=== PATIENT | female | born 1960 | race Caucasian/White ===

== ENCOUNTER → 2016-12-18 | Outpatient (CLI) | payer BC ==
[~2016-12-18] MED LIST: MELO15TA4 PO; MULT-506 PO; OXYM0.0592 INH; TOFA1TAB PO; TRAM-10 PO; TRIA3AER NAE
[2016-12-18 16:27] LABS: BASO % 0.3 %; BASO ABS # 0.02 K/uL (0-0.2); COMPLETE YES; EOS % 2.5 %; LYMPH % 33.1 %; MEAN CELL VOLUME 86.4 fL (80-100); MEAN CORPUSCULAR HEMOGLOBIN 27.9 pg (25-34); MEAN CORPUSCULAR HGB CONC 32.3 g/dl (32-36); MEAN PLATELET VOLUME 9.6 fL (7.4-10.4); MONO % 6.8 %; NEUT % 57.3 %; PLATELET COUNT 330 K/uL (130-400); RED BLOOD COUNT 4.05 M/uL (4.2-5.4); WHITE BLOOD COUNT 6.04 K/uL (4.8-10.8)
[2016-12-18 16:45] LABS: ALT/SGPT 22 U/L (12-78); AST/SGOT 15 U/L (15-37); BLOOD UREA NITROGEN 20 mg/dl (7-18); CALCIUM 9.3 mg/dl (8.5-10.1); CARBON DIOXIDE 29 mmol/L (21-32); CHLORIDE 105 mmol/L (98-107); GLUCOSE 90 mg/dl (70-99); POTASSIUM 3.9 mmol/L (3.5-5.1); SODIUM 140 mmol/L (136-145)
[2016-12-18 16:55] LABS: ALB/GLOB RATIO 0.8 (0.9-2); ALKALINE PHOSPHATASE 90 U/L (45-117)
--- NOTE | 2016-12-18 17:01 | DIAGNOSTIC IMAGING REPORT ---
CHEST 2 VIEWS ROUTINE CLINICAL HISTORY: Fever of unknown origin. COMPARISON STUDY: History of June 14, 2013. FINDINGS: Lung volumes are normal. No consolidation is identified. Cardiac size is at the upper limits of normal. Mediastinal contours are stable. There is no evidence of pulmonary edema. Partial fusion of the left first and second ribs is incidentally noted. IMPRESSION: No acute cardiopulmonary findings. Electronically signed by: Sha Medina M.D. 12/18/2016 5:00 PM Dictated Date/Time: 12/18/2016 4:58 PM
[2016-12-18 17:42] LABS: URINE APPEARANCE CLEAR (CLEAR); URINE BILIRUBIN NEG (NEG); URINE COLOR YELLOW; URINE EPITHELIAL CELL AUTO 20-30 /lpf (0-5); URINE NITRITE NEG (NEG); URINE PH 6.5 (4.5-7.5); URINE SPECIFIC GRAVITY 1.007 (1.000-1.030); UROBILINOGEN NEG (NEG)
[2016-12-18 17:44] LABS: MANUAL MICROSCOPIC REQUIRED? NO; REVIEW REQ? NO
[2016-12-18 19:58] LABS: LYME DISEASE AB IGG NEG (NEG); LYME DISEASE AB IGM NEG (NEG)
== END | disposition home or self-care (01) ==
LOC: C.LAB1850 15:39
PROVIDERS: ATTEND Internal Medicine
DX: R50.9 Fever, unspecified (principal)

== ENCOUNTER → 2017-06-03 | Outpatient (CLI) | payer BC ==
--- NOTE | 2017-06-03 14:26 | MAMMOGRAPHY REPORT ---
BILATERAL DIGITAL DIAGNOSTIC MAMMOGRAM TOMOSYNTHESIS WITH CAD AND TARGETED LEFT ULTRASOUND: 7 CLINICAL HISTORY: 56-year-old woman with a history of prior bouts of mastoiditis presents after recen t pain erythema and discomfort in the periareolar left breast. Also due for annual bilateral screeni ng mammograms. TECHNIQUE: Bilateral breast tomosynthesis in addition to standard 2D mammography was performed. Curre nt study was also evaluated with a Computer Aided Detection (CAD) system. COMPARISON: Comparison is made to exams dated: 08/24/2015 ultrasound, 08/24/2015 mammogram, 10/17/2014 mammogram, 09/21/2013 mammogram, 10/30/2010 mammogram, and 09/30/2005 mammogram - [facility]. BREAST COMPOSITION: There are scattered areas of fibroglandular density in both breasts. FINDINGS: There is no definite focal skin thickening in either breast. The glandular pattern is sim ilar to prior exams, with stable asymmetries in the medial left breast and superior right breast. Th ere are benign rim calcifications in the breasts and a stable grouping of punctate microcalcification s in the left upper outer posterior breast. No obvious new suspicious mass, focal area of distortion , asymmetry or suspicious microcalcifications are seen. Targeted ultrasound was performed in the periareolar left breast in the area of pain pointed out by t he patient. In the 6:00 periareolar left breast, incidentally identified is a lobulated parallel hyp oechoic solid mass with associated internal echogenic focus most likely representing a coarse calcifi cation. This mass measures 8.2 x 3.7 x 3.0 mm and most likely represents a fibroadenoma. In retrosp ect, it is not definitely seen mammographically. Given the benign sonographic appearance, a short in terval follow-up targeted ultrasound and diagnostic mammograms is recommended to ensure stability in 6 months. No other suspicious solid or cystic mass is seen in the periareolar/retroareolar left rosy st. There is no focal skin thickening or drainable fluid collection. IMPRESSION: ACR-BI-RADS CATEGORY 3: PROBABLY BENIGN, TARGETED ULTRASOUND ACR-BI-RADS CATEGORY 3: PRO BABLY BENIGN 1. There is no suspicious mammographic or targeted sonographic abnormality, skin thickening or drain able fluid collection in the region of probable resolving mastitis. Continued clinical monitoring is recommended. 2. Incidentally identified is a benign-appearing circumscribed parallel hypoechoic solid 8 mm mass i n the 6:00 periareolar left breast that most likely represents a fibroadenoma. This is not definitel y seen mammographically, even in retrospect. However, a short interval follow-up left diagnostic peter osynthesis mammogram and repeat targeted ultrasound is recommended to ensure stability in 6 months. 3. Stable mammographic appearance of the right breast, without mammographic evidence of malignancy. Recommend routine screening in 1 year. These results and recommendations were discussed with the patient at the time of the exam. Approximately 10% of breast cancers are not detected with mammography. A negative mammographic report should not delay biopsy if a clinically suggestive mass is present. Soni Carbajal M.D. ay/:06/03/2017 12:39:55 Associate Project Manager: Guerline DONOHUE)(Jasbir), [facility] letter sent: Follow Up Recommended 3 BI-RADS Code: ACR-BI-RADS Category 3: Probably Benign Ultrasound BI-RADS: ACR-BI-RADS Category 3: Pr obably Benign
== END | disposition home or self-care (01) ==
LOC: C.MAMM 09:07
PROVIDERS: ATTEND Internal Medicine
DX: N64.4 Mastodynia (principal); N63.20 Unspecified lump in the left breast, unspecified quadrant

== ENCOUNTER → 2017-06-23 | Outpatient (CLI) | payer BC | END | disposition home or self-care (01) | LOC: C.LABSPEC 12:17 | PROVIDERS: ATTEND Internal Medicine | DX: N39.0 Urinary tract infection, site not specified (principal) ==

== ENCOUNTER → 2017-07-29 | Outpatient (CLI) | payer BC ==
[~2017-07-29] MED LIST changes: +MELO-84 PO; -MELO15TA4 PO
== END | disposition home or self-care (01) ==
LOC: C.PATHSPEC 11:34
PROVIDERS: ATTEND Plastic Surgery
DX: L98.9 Disorder of the skin and subcutaneous tissue, unspecified (principal); C44.91 Basal cell carcinoma of skin, unspecified

== ENCOUNTER → 2017-08-06 | Outpatient (CLI) | payer BC ==
[~2017-08-06] MED LIST changes: -MELO-84 PO; +MELO15TA4 PO
== END | disposition home or self-care (01) ==
LOC: C.PATHSPEC 17:03
PROVIDERS: ATTEND Plastic Surgery
DX: C44.511 Basal cell carcinoma of skin of breast (principal)

== ENCOUNTER → 2017-11-11 | Outpatient (CLI) | payer BC ==
[~2017-11-11] MED LIST changes: +MELO-84 PO; -MELO15TA4 PO
== END | disposition home or self-care (01) ==
LOC: C.LAB1850 08:24
PROVIDERS: ATTEND Nurse Practitioner Primary Care
DX: M25.551 Pain in right hip (principal)

== ENCOUNTER → 2017-11-27 | Outpatient (CLI) | payer BC ==
--- NOTE | 2017-11-30 08:09 | MAMMOGRAPHY REPORT ---
UNILATERAL LEFT DIGITAL DIAGNOSTIC MAMMOGRAM TOMOSYNTHESIS WITH CAD AND TARGETED LEFT ULTRASOUND: 11/09 CLINICAL HISTORY: Six-month follow-up of left breast mass. TECHNIQUE: Breast tomosynthesis in addition to standard 2D mammography was performed. Current study was also evaluated with a Computer Aided Detection (CAD) system. Left CC and MLO 2D and tomosynthesi s images were obtained. COMPARISON: Comparison is made to exams dated: 06/03/2017 ultrasound, 06/03/2017 mammogram, 6 ultrasound, 08/24/2015 mammogram, 10/17/2014 mammogram, and 09/21/2013 mammogram - [facility] [address]. BREAST COMPOSITION: There are scattered areas of fibroglandular density in the left breast. FINDINGS: There are no suspicious masses, calcifications, or areas of architectural distortion noted within the left breast. There has been no significant interval change compared to prior exams. An a symmetry with associated coarse benign-appearing calcifications seen within the left lower inner quad rant anteriorly is stable compared to prior exams. Other scattered benign-appearing left breast calc ifications are also stable compared to prior exams. Targeted ultrasound was performed of the area of the previously seen left breast mass. In the left 7 :00 periareolar breast (previously labeled 6:00) there is an oval circumscribed parallel hypoechoic s olid mass which measures 8 x 3 mm, stable in size and appearance compared to the May 2017 exam. Echogenic foci are seen within the mass, consistent with coarse calcifications. This corresponds wit h the focal asymmetry and coarse benign-appearing calcifications which have been stable mammographica lly to prior exams. 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 IMPRESSION: ACR BI-RADS CATEGORY 2: BENIGN, TARGETED ULTRASOUND ACR BI-RADS CATEGORY 2: BENIGN Hypoechoic circumscribed 8 mm mass with associated internal coarse calcifications is stable on ultras ound compared to the May 2017 exam, and is stable mammographically compared to multiple prior exa ms. 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 There is no ma mmographic or targeted sonographic evidence of malignancy. Return to annual mammogram screening sched ule is recommended, due May 2018. The patient has been verbally notified of the results. Approximately 10% of breast cancers are not detected with mammography. A negative mammographic report should not delay biopsy if a clinically suggestive mass is present. Diana Alford M.D. ah/:11/27/2017 11:58:47 Neonatal Icu Coordinator: Desire DONOHUE)(Jasbir), [facility] letter sent: Normal 1/2 BI-RADS Code: ACR BI-RADS Category 2: Benign Ultrasound BI-RADS: ACR BI-RADS Category 2: Benign
== END ==
LOC: C.MAMM 11:27
PROVIDERS: ATTEND Internal Medicine
DX: Z09 Encounter for follow-up examination after completed treatment for conditions other than malignant neoplasm (principal); N63.20 Unspecified lump in the left breast, unspecified quadrant

== ENCOUNTER 2022-11-18 05:17 | Observation (INO) ==
--- NOTE | 2022-10-30 11:04 | PAT Medication Instructions ---
Medication Instructions Date of Service October 30, 2022 Home Medications Medication Instructions Recorded acyclovir 400 mg tablet 400 mg PO TID PRN skin irritation 07/23/20 #90 tabs estradiol 0.01% (0.1 mg/gram) See Rx Instructions .Route 09/14/20 vaginal cream .COMPLEX #42.5 grams azelastine 137 mcg (0.1 %) nasal 1 spray intranasal DAILY #30 mL 01/02/22 spray aerosol mometasone 50 mcg/actuation nasal 2 spray intranasal DAILY #17 grams 01/02/22 spray sumatriptan succinate 50 mg tablet See Rx Instructions .Route 07/29/22 .COMPLEX #9 tabs meloxicam 15 mg tablet 15 mg PO QAM tofacitinib 11 mg tablet,extended release 24 hr (Xeljanz XR) 11 mg PO DAILY acyclovir 400 mg tablet 400 mg PO TID PRN skin irritation estradiol 0.01% (0.1 mg/gram) vaginal cream See Rx Instructions azelastine 137 mcg (0.1 %) nasal spray aerosol 1 spray intranasal DAILY mometasone 50 mcg/actuation nasal spray 2 spray intranasal DAILY sumatriptan succinate 50 mg tablet See Rx Instructions alendronate 70 mg tablet 70 mg PO ONCE Continue as directed azelastine 137 mcg (0.1 %) nasal spray aerosol 1 spray intranasal DAILY mometasone 50 mcg/actuation nasal spray 2 spray intranasal DAILY alendronate 70 mg tablet 70 mg PO ONCE (just do not take on morning of surgery) ASK your surgeon for instructions meloxicam 15 mg tablet 15 mg PO QAM ASK your prescriber and surgeon tofacitinib 11 mg tablet,extended release 24 hr (Xeljanz XR) 11 mg PO DAILY estradiol 0.01% (0.1 mg/gram) vaginal cream See Rx Instructions Take morning of surgery With a small sip of water, OTHERWISE NOTHING TO EAT OR DRINK AFTER MIDNIGHT: acyclovir 400 mg tablet 400 mg PO TID PRN skin irritation (if needed) sumatriptan succinate 50 mg tablet See Rx Instructions (if needed) Take evening before surgery acyclovir 400 mg tablet 400 mg PO TID PRN skin irritation (if needed) sumatriptan succinate 50 mg tablet See Rx Instructions (if needed) Other Notes If you have any questions please call us at [phone] or [phone] or [phone] or [phone]
--- NOTE | 2022-11-06 10:45 | Anesthesiology Consultation ---
Date of Service November 06, 2022 Assessment & Plan (1) Encounter for pre-operative examination: Chart Review Chart Review: Acceptable Risk for Surgery and Patient seen in Pre Admission Testing Pt currently scheduled as 23 hours observation. If surgeon decides to change patient to Same Day Joint, patient would be acceptable risk for ANGELITA, pending patient is motivated, has good support and surgeon's office completes Same Day Joint Program preop requirements. Per PAT appt on 11/04/22, patient returned from [place] 10/14/22. Pt is vaccinated for Covid. Will leave to surgeon's discretion if preop Covid testing needed. Educated on importance of using Covid precautions one week prior to surgery History Surgery Operation Date: 11/18/22 07:00 Proposed Procedures p Right Total Hip Arthroplasty - Christiano Lawrence MD Height/Weight Height: 5 ft 2.5 in Weight: 84 kg Allergies Allergy/AdvReac Type Severity Reaction Status Date / Time Sulfa (Sulfonamide Allergy Unknown Nausea Verified 10/29/22 10:43 Antibiotics) Medications Home Medications Medication Instructions Recorded Confirmed Last Taken meloxicam 15 mg tablet 15 mg PO QAM 05/02/19 10/29/22 Unknown tofacitinib 11 mg tablet,extended 11 mg PO DAILY 05/03/19 10/29/22 Unknown release 24 hr (Xeljanz XR) acyclovir 400 mg tablet 400 mg PO TID PRN skin irritation 07/23/20 10/29/22 Unknown #90 tabs estradiol 0.01% (0.1 mg/gram) See Rx Instructions .Route 09/14/20 10/29/22 Unknown vaginal cream .COMPLEX #42.5 grams azelastine 137 mcg (0.1 %) nasal 1 spray intranasal DAILY #30 mL 01/02/22 10/29/22 Unknown spray aerosol mometasone 50 mcg/actuation nasal 2 spray intranasal DAILY #17 grams 01/02/22 10/29/22 Unknown spray sumatriptan succinate 50 mg tablet See Rx Instructions .Route 07/29/22 10/29/22 Unknown .COMPLEX #9 tabs alendronate 70 mg tablet 70 mg PO ONCE 09/17/22 10/29/22 Unknown Past Medical History Medical History (Updated 11/07/22 @ 09:49 by Lizzy Saldana PA-C) Chronic sinusitis History of anesthesia reaction "shaking" coming out of anesthesia after last procedure History of basal cell carcinoma EXCISION History of COVID-19 07/2021- FEVER, COUGH, ACHY; no hospitalization, no current issues 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- no medications- no recent thyroid labs - TSH and Free T4 done at 11/06/22 PAT appt - WNL Nausea and vomiting after administration of anesthetic agent Rheumatoid arthritis Follows with rheum- stable Exercise / Class Metabolic Activity II 4-5 Yardwork/Stairs/Walk up hill (one flight of stairs - no chest pain or SOB ) Past Family History Family History Unknown Cancer Crohn's disease Stroke Leukemia Past Surgical History Surgical History History of ankle surgery RIGHT History of dilation and curettage History of foot surgery R/L Hx of colonoscopy Status post right knee replacement Past Anesthesia History No Hx of Anesthesia Complications (with exception to PONV and post op shaking ) and No Family Hx of Anesthesia Complications History of PONV No Hx of Motion Sickness and History of PONV Social History Smoking Status: Never smoker Do You Dip or Chew Tobacco: No Hx Alcohol Use: Yes alcohol intake frequency: holidays/special occasions only Hx Substance Use: No substance use type: does not use Review of Systems Occ snoring- no hx of sleep study Patient denies chest pain, shortness of breath, dyspnea on exertion, reflux, cough, wheezing, palpitations. No hx of seizures, stroke, GA. No hx of blood clots or blood transfusions Physical Exam Vital Signs VITALS BP 129/84 P 84 TEMP 98.3 SP02 97% RESP 16 Constitutional no acute distress ENMT Mouth: no TMJ clicking Thyromental Distance: < 3.5 Finger Breadths (3.0) Mallampati Class: III Crowns to side teeth Neck neck extension not limited Respiratory normal respiratory effort; no respiratory distress Auscultation: lungs clear to auscultation bilaterally; no wheezes Cardiovascular Rate/Rhythm: regular rate and regular rhythm Heart Sounds: no murmur Vessels: no carotid bruit Musculoskeletal Spine: no pain with cervical ROM Extremities: extremities normal to inspection Psychiatric Orientation: alert Lab Results Anesthesia Preop Results Results Anesthesia Widget: WBC 7.29 K/ul (4.8-10.8) 11/06/22 Hgb 12.3 g/dl (12.0-16.0) 11/06/22 Hct 37.3 % (37.0-47.0) 11/06/22 Plt 280 K/uL (130-400) 11/06/22 Na 140 mmol/L (136-145) 11/06/22 K 4.2 mmol/L (3.5-5.1) 11/06/22 Cl 106 mmol/L (98-107) 11/06/22 CO2 28 mmol/L (21-32) 11/06/22 BUN 25 mg/dl (6-23) H 11/06/22 Creat 0.55 mg/dl (0.6-1.2) L 11/06/22 Glucose Level 91 mg/dl (70-99(Fasting)) 11/06/22 PT 10.4 Seconds (9.0-12.0) 11/06/22 PTT 25.6 Seconds (21.0-31.0) 11/06/22 INR 1.0 (0.9-1.1) 11/06/22 TSH 3.353 uIu/ml (0.300-4.500) 11/06/22 Free T4 0.74 ng/dl (0.61-1.60) 11/06/22 Blood Type O Positive 11/06/22 Antibody Screen NEGATIVE 11/06/22 Testing Electrocardiogram Date: 11/06/22 Findings: + NSR @ (76bpm ) Normal EKG per cardio Chest X-Ray Date: 11/06/22 FINDINGS: Cardiomediastinal and hilar silhouettes are within normal limits. There is no pneumothorax, pleural effusion, airspace consolidation or pulmonary edema. Osseous bridging of the anterior left first and second ribs. 7 mm calcification within the abdominal right upper quadrant. Mild mid thoracic levoscoliosis. IMPRESSION: 1. No acute processes of the chest. 2. Right nephrolithiasis. Cervical Spine Date: 11/06/22 FINDINGS: Demineralized appearance of the bones. Multilevel degenerative changes include moderate disc space narrowing at C5-C6 and C6-7. Multilevel facet arthrosis is severe at C7-T1. No acute fracture, subluxation or osseous erosions. No prevertebral edema. IMPRESSION: 1. No acute fracture or subluxation. 2. Degenerative changes as above. COVID-19 Risk Screen Screening Information COVID-19 Screen Date: 11/06/22 Exposure 21 Days Family/Household +COVID Last 21 Days: No Exposure 10 Days Any COVID Exposure Last 10 Days: No Symptoms Last 10 Days Experienced COVID Sx Last 10 Days: No + COVID 0-90 Days COVID + in Last 0-90 Days: No Risk Plan COVID Risk Plan: No Risk Identified Patient Education COVID Preop Screening Education Complete: Yes
[2022-11-18] MEDS ORDERED: METOCLOPRAMIDE HCL 10 MG TABLET PO SCH (06:00)
[2022-11-18] MEDS ORDERED: TRANEXAMIC ACID 1,000 MG **IV Pre-op IV SCH (06:00)
[2022-11-18] MEDS ORDERED: FAMOTIDINE 20 MG TAB PO SCH (06:00)
[2022-11-18] MEDS ORDERED: DEXAMETHASONE SOD INJ 4 MG/ML VIAL IV SCH (06:00)
[2022-11-18] MEDS ORDERED: Scopolamine 1 MG TDSY TD SCH (06:00)
[2022-11-18] MEDS ORDERED: ACETAMINOPHEN 500 MG TAB PO SCH (06:00)
[2022-11-18] MEDS ORDERED: LR 60ML/HR IV SCH (06:00)
[2022-11-18] MEDS ORDERED: CeleBREX 200 MG CAP PO SCH (06:00)
[2022-11-18] MEDS ORDERED: LR 500ML BOLUS, THEN 15ML/HR IV SCH (06:00)
[2022-11-18] MEDS ORDERED: BUPIVACAINE 0.5 % 5 MG/1 ML PF 10ML VIAL ONE (06:23)
[2022-11-18] MEDS ORDERED: BUPIVACAINE/EPINEPHRINE 0.5% MPF 1:200,000 30 ML VIAL ONE (06:38)
[2022-11-18] MEDS ORDERED: MIDAZOLAM HCL 1 MG/ML 2ML VIAL ONE (06:46)
[2022-11-18] MEDS ORDERED: fentaNYL citrate PF 100 MCG/2 ML VIAL ONE (06:46)
[2022-11-18] MEDS ORDERED: MoRPHine SULFATE PF 1 MG/ML 10 ML AMP/VIAL ONE (06:48)
--- NOTE | 2022-11-18 06:54 | History & Physical Bridge Note ---
Date of Service November 18, 2022 History & Physical Bridge Note I have examined the patient, reviewed the History & Physical and in the interval since the performance of the History & Physical I have noted the following changes of clinical significance: no changes noted
[2022-11-18] MEDS: ceFAZolin 2000MG 2,000 MG/15 ML SYR IV SCH ×4 (07:15→23:20)
[2022-11-18] MEDS ORDERED: ONDANSETRON INJ 2 MG/ML 2 ML VIAL IV PRN ×4 (07:38→09:58)
[2022-11-18] MEDS ORDERED: fentaNYL citrate PF 100 MCG/2 ML VIAL IV PRN ×2 (07:38→07:54)
[2022-11-18] MEDS ORDERED: ePHEDrine sulfate 50 MG/ML AMP IV PRN ×3 (07:38→09:49)
[2022-11-18] MEDS ORDERED: ATROPINE SULFATE 0.1 MG/ML 10ML SYR IV PRN ×2 (07:38→07:54)
[2022-11-18] MEDS ORDERED: ACETAMINOPHEN 1,000 MG/100 ML VIAL IV STA ×2 (07:38→07:54)
[2022-11-18] MEDS ORDERED: ALBUTEROL 0.083% NEBU SOLN 3 ML VIAL INH PRN ×2 (07:38→07:54)
[2022-11-18] MEDS ORDERED: diphenhydrAMINE 50 MG/ML VIAL ONE (07:47)
[2022-11-18] MEDS ORDERED: PROPOFOL IV EMULSION 10 MG/ML 20 ML VIAL IV ONE (07:47)
[2022-11-18] MEDS ORDERED: ONDANSETRON INJ 2 MG/ML 2 ML VIAL ONE (07:47)
[2022-11-18] MEDS ORDERED: PHENYLEPHRINE 100MCG/ML 5ML SYR ONE (07:47)
[2022-11-18] MEDS ORDERED: KETAMINE 50 MG/5 ML SYRINGE ONE (08:17)
[2022-11-18] MEDS ORDERED: KETOROLAC 30 MG/ML VIAL ONE (08:29)
[2022-11-18] MEDS ORDERED: MEPERIDINE HCL 25 MG/ML CARP/VIAL ONE (09:07)
[2022-11-18] MEDS ORDERED: MEPERIDINE HCL 25 MG/ML CARP/VIAL IV ONE (09:08)
--- NOTE | 2022-11-18 09:08 | Operative Report ---
PG Post Operative Report Pre & Post Diagnosis Operation Date: 11/18/22 07:00 Pre-Op Diagnosis: Right Hip Advanced Degenerative Joint Disease Post-Op Diagnosis: Right Hip Advanced Degenerative Joint Disease I identified the patient and participated in the time-out.: Yes Procedure Operation Date: 11/18/22 07:00 Actual Procedures p Right Total Hip Arthroplasty--Uncemented(Right) - Christiano Lawrence MD Surgeon Christiano Lawrence MD Straw Hat Machine Operator Yonatan Martinez PA-C Estimated Blood Loss 200 Findings Consistent with Post-Op Diagnosis Operative findings were advanced right hip DJD. As she had grade 4 [id number] disease of the femoral head and acetabulum. Moderate-sized joint effusion. Mild lateral osteophyte formation. Specimens Right femoral head sent for pathology Anesthesia Type Spinal MAC Complications none Disposition Accompanied Patient To Recovery: No Indications Patient is a 62-year-old female with longstanding rheumatoid arthritis who is got a long history of multiple joint problems. She been through extensive conservative management. Over the past 2 years she developed increased pain and discomfort in her right hip. X-rays show progressive hip arthritis. She elected proceed with total hip arthroplasty. Description of Procedure Operative implants consist of: 1 Biomet G7 size 48 mm acetabular shell. 2. 6.5 cancellous acetabular screws 135 mm length 1 to 25 mm length. 3. Benton eliminator. 4. Highly cross-linked polyethylene liner with a 48 mm outer diameter and 32 mm diameter. 5. DePuy Corail size 10 KLA femoral stem. 6. +1/32 mm ceramic articular head. The patient was taken the operating, identified, and placed on the operating table supine position protectors were properly padded. IV antibiotics tried by anesthesia team. A spinal anesthetic and been implemented holding area. Sales catheter was placed in sterile fashion. Patient then placed in the left lateral cubitus position. Roll was placed. Stulberg hip positioner was used for positioning. Right hip and leg were then prepped and draped in usual sterile fashion. A posterior lateral approach to the right hip was then performed to a curvilinear incision centered over the greater trochanter. Sharp dissection carried through subcutaneous tissue down to the IT band gluteal fascia. She did have a very thick soft tissue envelope. The IT band gluteal fascia were incised longitudinally in line with skin incision. The underlying greater bursa was excised. The piriformis and external rotators along with the posterior hip joint capsule were then released from the posterior aspect of the hip as a single layer. Great care was taken throughout the procedure protect the sciatic nerve at all times. The hip was internally rotated and dislocated. Femoral nec k osteotomy cut was made with Final Cut about 5 mm above the lesser trochanter. Femoral head was removed and sent for pathology. The femur was retracted anteriorly. Attention drawn the acetabulum. The acetabulum was excised. The pulmonary fat was excised. Sequential reaming the acetabular was then performed again with size 43 and progressing to a 47. I reviewed slightly with a 48 mm reamer and then placed a 48 mm cup in about 40 degrees lateral opening and 20 degrees of anteversion. Was fixed with two 6.5 cancellous acetabular screws. Trial liner was placed. Attention drawn the femur. The proximal femur was entered with a Section 101 cutter followed by canal finder. Broached beginning size 8 and progressed up to 10. We had a little difficulty to get the 10 down so we stopped there. We trialed the hip. The +1 articular ball seem to recreate soft tissue tension appropriately. The hip was fully stable full extension and external rotation flexion to 90 degrees internal Tatian over 50 degrees. Leg lengths appeared appropriate. We elect to place these implants. Nupathe all trial implants were removed. Benton hole limiter was placed but highly cross-linked polyethylene liner was placed. A size 10 KLA femoral stem was impacted in position. +1/32 mm ceramic articular ball was placed. Hip was located. Once again found to be stable. Attention drawn to closing. Wounds irrigated cosigns pulsatile lavage solution. I did inject locally with 60 cc of half percent Marcaine with epinephrine. Posterior capsule and external rotators then repaired through drill holes in the posterior trochanter with #2 Tycron suture. The IT band gluteal fascia were then closed with #1 PDS suture running fashion for subcutaneous tissues then closed with 2 layers the deep layer #2 Vicryl suture and subcutaneous tissues with 2-0 Dexon suture in a buried interrupted fashion. Skin was closed with skin ravi. A Prevena VAC dressing was applied due to the very large and thick soft tissue envelope. The patient was then transferred to the recovery room in stable condition. Patient tolerated the procedure well and there were no complications. Yonatan Martinez, my physician vector control assistant, was present for the entire procedure. His assistance was essential and required for appropriate patient positioning, prepping and draping, surgical exposure, performing the technical details of the operation, placement the implants, closure of the wound, and placement of the sterile bandage. I attest to the content of the Intraoperative Record and any orders documented therein. Any exceptions are noted below.
--- NOTE | 2022-11-18 09:44 | Anesthesiology Progress Note ---
Date of Service November 18, 2022 Anesthesia Post Procedure Vital Signs Vital Signs: Temp Pulse Pulse Resp BP BP Pulse Ox 11/18/22 09:35 36.4 C L 79 17 113/54 L 99 11/18/22 09:25 81 13 112/55 L 100 11/18/22 09:15 66 15 111/57 L 100 11/18/22 09:05 75 12 105/55 L 100 11/18/22 08:58 36.0 C L 82 16 91/43 L 100 11/18/22 05:56 36.6 C 81 20 171/76 H 96 O2 Del Method O2 Flow Rate 11/18/22 09:35 Room Air 11/18/22 09:25 Room Air 11/18/22 09:15 Oxymask 3 11/18/22 09:05 Oxymask 6 11/18/22 08:58 Oxymask 6 11/18/22 05:56 Room Air Pain Intensity Right Hip: Pain Intensity: 6 Transfer of Care Handoff Completed per policy Notes Mental Status: alert / awake / arousable Patient Amnestic to Procedure: Yes Nausea / Vomiting: adequately controlled Pain: adequately controlled Airway Patency, RR, SpO2: stable & adequate BP & HR: stable & adequate Hydration State: stable & adequate Neuraxial Anesthesia: was administered and sensory block is resolving Anesthetic Complications: no major complications apparent and Pt Satisfied with anesthetic care
[2022-11-18] MEDS ORDERED: NALOXONE HCL 1 MG in SODIUM CHLORIDE 0.9% 1000ML 1,000 ML IV PRN (09:49)
[2022-11-18] MEDS ORDERED: NALOXONE HCL 0.08 MG in SYRINGE 1.8 ML IV PRN (09:49)
[2022-11-18] MEDS ORDERED: diphenhydrAMINE 50 MG/ML VIAL IV PRN (09:49)
[2022-11-18] MEDS ORDERED: NALOXONE HCL 0.4 MG/1 ML VIAL/CARP IV PRN ×2 (09:49→09:58)
[2022-11-18] MEDS ORDERED: LACTATED RINGER'S 500 ML IV PRN (09:49)
[2022-11-18] MEDS ORDERED: NALBUPHINE HCL INJ 10 MG/ML AMP IV PRN (09:49)
[2022-11-18] MEDS ORDERED: METOCLOPRAMIDE HCL INJ 5 MG/ML 2 ML VIAL IV PRN (09:58)
[2022-11-18] MEDS ORDERED: bisacodyL 10 MG SUPP PR PRN (09:58)
[2022-11-18] MEDS ORDERED: MAGNESIUM HYDROXIDE SUSP 30 ML UDC PO PRN (09:58)
[2022-11-18] MEDS ORDERED: SENNA 8.6 MG TAB PO SCH ×2 (09:58→21:00)
[2022-11-18] MEDS ORDERED: ALUMINUM/MAGNESIUM SUSP 30 ML UDC PO PRN (09:58)
[2022-11-18] MEDS ORDERED: DC INTRASPINAL MORPHINE SCH (10:00)
[2022-11-18] MEDS ORDERED: SODIUM CHLORIDE 0.9% 1000ML 1,000 ML IV SCH (10:00)
[2022-11-18] MEDS ORDERED: NO NARCOTICS OR SEDATIVES SCH (10:00)
[2022-11-18] MEDS: SODIUM CHLORIDE 0.9% 1000ML 1,000 ML IV SCH ×2 (10:02→20:43)
--- NOTE | 2022-11-18 10:03 | XRay Report ---
SINGLE VIEW PELVIS; SINGLE VIEW RIGHT HIP CLINICAL HISTORY: Postoperative examination. FINDINGS: An AP portable view of the hips and pelvis with a crosstable lateral portable view of the r ight hip are obtained. A bipolar right hip arthroplasty is in near-anatomic alignment. At least 2 cor tical lag screws transfix the acetabular cup. No acute fracture is identified. There are expected pos toperative changes overlying the right hip including skin clips, subcutaneous gas, and soft tissue sw elling. Mild arthritic change is noted in the left hip. A Sales catheter is in place. IMPRESSION: Expected postoperative findings status post right hip arthroplasty. No acute fracture is seen. ACT 112: Negative or not required by law. Electronically signed by: Richard Alaniz M.D. 11/18/2022 10:01 AM
[2022-11-18] MEDS: ASPIRIN 81 MG ECTAB PO SCH ×2 (11:38→20:45)
[2022-11-18] MEDS: ACETAMINOPHEN 500 MG TAB PO SCH ×3 (11:38→20:44)
[2022-11-18] MEDS: DOCUSATE SODIUM 100 MG CAP PO SCH ×2 (11:39→20:46)
[2022-11-18] MEDS: AZELASTINE HCL 0.1% NASAL 200 SPRAYS/27,400 MCG BTL NAE SCH (11:39)
[2022-11-18] MEDS: MULTIVITAMIN TAB PO SCH (11:40)
[2022-11-18] MEDS ORDERED: TRANEXAMIC ACID / 0.7% NACL 1,000 MG/100 ML BAG IV SCH (15:00)
[2022-11-18] MEDS: Scopolamine CHECK PATCH PLACEMENT SCH ×2 (19:18→23:20)
[2022-11-18] MEDS: ASCORBIC ACID 500 MG TAB PO SCH (19:18)
[2022-11-19] MEDS ORDERED: diphenhydrAMINE Capsule 25 MG CAP PO PRN (03:50)
[2022-11-19] MEDS ORDERED: HYDROmorphone INJ 0.5 MG/0.5 ML SYR IV PRN (03:50)
[2022-11-19] MEDS ORDERED: traMADol HCL 50 MG TABLET PO PRN (03:50)
[2022-11-19] MEDS: KETOROLAC 30 MG/ML VIAL IV SCH ×2 (04:09→09:50)
[2022-11-19] MEDS: SODIUM CHLORIDE 0.9% 1000ML 1,000 ML IV SCH (06:10)
[2022-11-19 06:58] LABS: Basophils # (auto) 0.01 K/uL (0-0.2); Basophils % (auto) 0.1 %; Eosinophils # (auto) 0.01 K/uL (0-0.50); Eosinophils % (auto) 0.1 %; Hematocrit (blood only) 27.2 % (37.0-47.0); Immature Granulocytes # (auto) 0.02 K/uL (0.01-0.20); Immature Granulocytes % (auto) 0.3 %; Lymphocytes # (auto) 1.04 K/uL (1.2-3.4); Lymphocytes % (auto) 13.5 %; Mean Corpuscular Hemoglobin 28.5 pg (25.0-34.0); Mean Corpuscular Hgb Conc 33.1 g/dL (32.0-36.0); Mean Corpuscular Volume 86.1 fL (80.0-100.0); Mean Platelet Volume 9.8 fL (9.4-12.4); Monocytes # (auto) 0.83 K/uL (0.11-0.59); Monocytes % (auto) 10.8 %; Neutrophils # (auto) 5.77 K/uL (1.40-6.50); Neutrophils % (auto) 75.2 %; Platelet Count 220 K/uL (130-400); RDW Standard Deviation 40.9 fL (36.4-46.3); Red Blood Count 3.16 M/uL (4.20-5.40); White Blood Count 7.68 K/ul (4.8-10.8)
[2022-11-19 07:14] LABS: BUN Creatinine Ratio 43.2 (10-20); Est GFR (African American) 123.6 ml/min; Est GFR (Non-African American) 106.7 ml/min; Potassium 3.7 mmol/L (3.5-5.1)
[2022-11-19] MEDS ORDERED: dexAMETHasone 10 MG in SYRINGE 0 ML IV SCH (08:00)
[2022-11-19] MEDS: ACETAMINOPHEN 500 MG TAB PO SCH (08:08)
[2022-11-19] MEDS: Scopolamine CHECK PATCH PLACEMENT SCH (08:11)
[2022-11-19] MEDS ORDERED: FLUTICASONE PROPIONATE NA SPR 16 GM BTL SCH (09:00)
[2022-11-19] MEDS: AZELASTINE HCL 0.1% NASAL 200 SPRAYS/27,400 MCG BTL NAE SCH (09:02)
[2022-11-19] MEDS: ASCORBIC ACID 500 MG TAB PO SCH (09:03)
[2022-11-19] MEDS: DOCUSATE SODIUM 100 MG CAP PO SCH (09:03)
[2022-11-19] MEDS: MULTIVITAMIN TAB PO SCH (09:03)
[2022-11-19] MEDS: ASPIRIN 81 MG ECTAB PO SCH (09:49)
--- NOTE | 2022-11-19 14:04 | Progress Notes ---
SUBJECTIVE: A 62-year-old female with underlying rheumatoid disease, postop day 1 from a right hip r eplacement. She is doing pretty well. She has trouble getting in and out of bed, but turn around an d walk pretty well in the hallways. No chest pain or shortness of breath. Not feeling dizzy or ligh theaded. She is hoping to go home today. OBJECTIVE: VITAL SIGNS: Temperature 36.9. Vital signs are stable. GENERAL: Shows a pleasant middle-aged female. She is sitting in her bedside chair, looks pretty com fortable. LUNGS: Clear to auscultation. HEART: Regular rate and rhythm. ABDOMEN: Soft, nontender, nondistended. EXTREMITIES: Grossly neurovascularly intact except as follows. Examination of the right hip and leg reveals the dressing to be clean, dry and intact. She has got a Prevena VAC dressing in place. Leg lengths were equal. She can dorsiflex and plantarflex her foot appropriately. She is neurologically intact. LABORATORY DATA: Hemoglobin 9.0. Hematocrit 27.2. Electrolytes are stable. ASSESSMENT: A 62-year-old female with underlying rheumatoid disease, postop day 1 from a right hip r eplacement, doing pretty well. Pain is controlled. Hip is located. She is neurologically intact. She is anemic, but without symptoms. PLAN: 1. DVT prophylaxis includes thigh-high TEDs, SCDs, and aspirin twice a day. 2. PT/OT, weight bear as tolerated, right total knee protocol. 3. Pain control, doing okay with current pain regimen. 4. Disposition: Plan to discharge to home with some home health if does okay in therapy. Job ID: [id number]
== END 2022-11-19 14:04 | disposition home health service (06) ==
LOC: ASU 05:17 → 3E 05:17

== ENCOUNTER 2023-07-11 17:40 | Inpatient (IN) ==
--- OUTSIDE RECORDS SUMMARY | 2023-07-11 17:45 | External Medical Summary | Continuity of Care Document ---
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 Name Role Phone Ericka Medina Primary Care Physician [phone] [facility]counter [facility] [id number] Date(s): 07/07/23 - 07/07/23 [facility] [employer] [address] [facility] [address] [place] [id number] Encounter Diagnosis Arthritis of right foot(Discharge Diagnosis) - 07/07/23 Rheumatoid arthritis(Discharge Diagnosis) - 07/07/23 Swelling of right foot(Discharge Diagnosis) - 07/07/23 Common peroneal neuropathy(Discharge Diagnosis) - 07/07/23 Discharge Disposition: Home or Self Care Attending Physician: NICOLÁS Aguilera Christina L Referring Physician: NICOLÁS Aguilera Christina L Allergies, Adverse Reactions, Alerts Substance Reaction Severity Status sulfa drugs gi isuues Active Assessment and Plan Extracted from: Title:Orthopaedics Office Visit Note Author:Donta Plata DPM, Christina L Date:07/07/23 1.Arthritis of right foot Discussed with patient today that I feel she is developing irritation to her nerve in her first interspaceI recommend to control the swelling to use compression socks or hoseI also recommend shoes that are wide and soft accommodate for the swellingand when this does occur to sit down rest and elevate if possible the right foot and leg. She is understanding provided patient with information sheet we reviewed x-rays taken at her primary care visit on June 19 of this year. Recommend follow-up in 3 months or sooner if any worsening pain or develop. 25-minute initial visit, 8-minute chart review,17 minutes [id number] 2.Rheumatoid arthritis 3.Swelling of right foot 4.Common peroneal neuropathy Medications alendronate 70 mg oral tablet Start: 07/07/23 13:06:00 EST, 1 tab, PO, q7days Start Date: 07/07/23 Status: Ordered azelastine 137 mcg/inh (0.1%) nasal spray Start: 07/07/23 13:07:00 EST, 1 spray, each nostril, bid, PRN: as needed for allergy symptoms Start Date: 07/07/23 Status: Ordered azelastine-fluticasone nasal Start: 06/06/19 8:25:00 EDT Start Date: 06/06/19 Status: Ordered meloxicam 15 mg oral tablet Start: 06/06/19 8:24:00 EDT, 1 tab, PO, Daily Start Date: 06/06/19 Status: Ordered mometasone 50 mcg/inh nasal spray Start: 06/06/19 8:26:00 EDT, 2 spray, each nostril, Daily, PRN: as needed for allergy symptoms Start Date: 06/06/19 Status: Ordered multivitamin Start: 06/06/19 8:29:00 EDT, 2 tabs, PO, Daily Start Date: 06/06/19 Status: Ordered rosuvastatin 5 mg oral tablet Start: 07/07/23 13:07:00 EST, 1 tab, PO, Daily Start Date: 07/07/23 Status: Ordered SUMAtriptan 50 mg oral tablet Start: 06/06/19 8:24:00 EDT, 1 tab, PO, ONCE, PRN: as needed for migraine headache Start Date: 06/06/19 Status: Ordered traMADol 50 mg oral tablet Start: 06/06/19 8:24:00 EDT, 1 tab, PO, q4h, PRN: as needed for pain Start Date: 06/06/19 Status: Ordered Tylenol Start: 06/06/19 8:26:00 EDT, PO, tylenol migraine Start Date: 06/06/19 Status: Ordered Xeljanz XR 11 mg oral tablet, extended release Start: 06/06/19 8:24:00 EDT Start Date: 06/06/19 Status: Ordered Mental Status 07/07/23 Barriers to Learning one year None evide nt Mandatory Health Literacy Documentation Yes Health Literacy Communication Barriers N ever Primary Language Kyrgyz Problem List Condition Confirmation Course Effective Dates Status Health St atus Informant Arthritis of right foot Confirmed Active Basal cell carcinoma of right earlobe Confirmed Active Common peroneal neuropathy Confirmed Active Rheumatoid arthritis Confirmed Active Swelling of right foot Confirmed Active Diagnosis Diagnosis Type Effective Dates Health Status Clinical Service Informant Arthritis of right foot Discharge Diagnosis 07/07/23 Rheumatoid arthritis Discharge Diagnosis 07/07/23 Swelling of right foot Discharge Diagnosis 07/07/23 Common peroneal neuropathy Discharge Diagnosis 07/07/23 Procedures Procedure Date Related Diagnosis Body Site Status Mohs micrographic surgery 03/05/20 Completed Mohs' micrographic surgery 06/06/19 Completed Vital Signs Most recent to oldest [Reference Range]: 1 Height 162.5 cm (07/07/23 1:09 PM) Patient Weight 86.0 kg (07/07/23 1:09 PM) Body Mass Index 32.57 kg/m2 (07/07/23 1:09 PM) Social History Social History Type Response Smoking Status Never smoked cigaret jessica Sex Female Ortho Outpt Note * NICOLÁS Aguilera Christina L: PERFORM Event Display: Ortho Outpt Note Authored Date: [id number] Primary Care Provider MD Medina Cynthia D Referring Provider NICOLÁS Aguilera Christina L Chief Complaint right foot pain in hallux MTJ, started a little over one year ago. pain when wlaking. History of Present Illness Patientis a very pleasant 62-year-old female presenting todayfor initial evaluation of right foot pain. PCPDr. Adam last seen June 17, 2023. She has a history of RA [facility] [place] [facility] hip replacement history of basal cell cancer Past medical historyrheumatoid arthritisosteoporosis diverticulosisHashimoto's thyroiditis hyperlipidemia history of basal cell Surgical history right total hip colonoscopy ankle surgeryright knee replacement foot surgery D&C. Family historyunknown. Social historydenies smoking Allergiesreviewed. Medicationsreviewed Physical Exam Vitals & Measurements HT:162.5cm WT:86.000kg(Dosing) WT:86.0kg BMI:32.57 Problem focused right foot: Dorsalis pedis pulse palpable 2 out of 4, posterior tibial pulse palpable 2 out of 4, capillary refill time less than 3 seconds, skin turgor is good to all digits of the right foot pedal hair is present. Neurovascular status grossly tactile digits of the right foot. Skin is clean dry and intact without maceration but down there are no open wounds or lesions present. History of rheumatoid arthritis patient underwent subtalar joint fusion in 2010 bunion corrective surgery in 2006 or 8and multiple hammertoe corrective surgery in 2000. This is all secondary to her history of rheumatoid arthritis. Presently she does not have significant deformities of the right footI think generally speaking surgeries for a decent success there has been some iatrogenic arthritis of the right first second and third metatarsal phalangeal joints likely secondary to her previous historyof the patient is not endorsing significant pain or tenderness. Allof the hardware present seems to be intact. Her area of main concern is the first interspace of the right footafterstanding for prolonged period of timepatient feels almost likethe area is falling asleepseems to correlate with the terminal branch of the common peroneal nerve. I think essentially sheis to Eddy's developinga nerve irritationsecondary to swelling and also likely secondary to RA and previous surgeriesI think she probably develops irritation to the nerveit does subside with rest and elevation. X-rays obtained June 19, 2023 showing history of subtalar joint fusionprior bunionectomy surgery with 2 screw fixation well-healedand hardware in proximal phalanxthere does appear to be nonuniform joint space narrowing and arthritis right first MPJ. Assessment/Plan 1.Arthritis of right foot Discussed with patient today that I feel she is developing irritation to her nerve in her first interspaceI recommend to control the swelling to use compression socks or hoseI also recommend shoes that are wide and soft accommodate for the swellingand when this does occur to sit down rest and elevate if possible the right foot and leg. She is understanding provided patient with information sheet we reviewed x-rays taken at her primary care visit on June 19 of this year. Recommend follow-up in 3 months or sooner if any worsening pain or develop. 25-minute initial visit, 8-minute chart review,17 minutes [id number] 2.Rheumatoid arthritis 3.Swelling of right foot 4.Common peroneal neuropathy Problem List/Past Medical History Ongoing Arthritis of right foot Basal cell carcinoma of right earlobe Common peroneal neuropathy Rheumatoid arthritis Swelling of right foot Historical Basal cell carcinoma of left earlobe Procedure/Surgical History Mohs micrographic surgery (03/05/2020)Mohs' micrographic surgery (06/06/2019) Medications acetaminophen(Tylenol), PO alendronate(alendronate 70 mg oral tablet), 70 mg= 1 tab, PO, q7days azelastine nasal(azelastine 137 mcg/inh (0.1%) nasal spray), 1 spray, each nostril, bid, PRN azelastine-fluticasone nasal meloxicam(meloxicam 15 mg oral tablet), 15 mg= 1 tab, PO, Daily mometasone nasal(mometasone 50 mcg/inh nasal spray), 2 spray, each nostril, Daily, PRN multivitamin, 2 tabs, PO, Daily rosuvastatin(rosuvastatin 5 mg oral tablet), 5 mg= 1 tab, PO, Daily SUMAtriptan(SUMAtriptan 50 mg oral tablet), 50 mg= 1 tab, PO, ONCE, PRN tofacitinib(Xeljanz XR 11 mg oral tablet, extended release) traMADol(traMADol 50 mg oral tablet), 50 mg= 1 tab, PO, q4h, PRN Allergies sulfa drugsgi isuues Social History Smoking Status Never smoked cigarettes Recommendations Health Maintenance Pending(in the next year) OverDue Adult Influenza Vaccine due02/07/23and every 1year Due Adult COVID-19 Vaccination due07/07/23Unknown Frequency Adult Tdap/Td Vaccine due07/07/23Unknown Frequency Breast Cancer Screening due07/07/23nown Frequency Cervical Cancer Screening due07/07/23nown Frequency Colorectal Cancer Screening due07/07/23Unknown Frequency Hepatitis C Screening due07/07/23One-time only Lipid Screening due07/07/23Unknown Frequency Shingles Vaccine due07/07/23One-time only Due In Future Body Mass Index not due until07/06/24and every 1year Satisfied(in the past 1 year) Satisfied Body Mass Index on07/07/23.Satisfied by ALEXX Smith Eryn Electronic Signature on File Electronically Reviewed/Signed by: Yessi Aguilera DPM Author Signature Dt/Tm:07/07/2023 01:33 PM Division of Sports Medicine CLR Patient Care team information Care Team Personnel Name: MD Adam, Ericka Quevedo Position: Referring Member Role: Primary Care Provider Address: Address: [address] [place] [address] [place] [id number] Care Team Related Persons Name: GILLIAN LUI Address: home [address] [place] [address] [place] [id number]
[2023-07-11] MEDS ORDERED: SODIUM CHLORIDE 0.9% 1,000 ML IV STA (18:01)
--- NOTE | 2023-07-11 18:01 | ED Triage Note ---
Date of Service July 11, 2023 History of Present Illness This patient was briefly evaluated while in triage. An abbreviated physical exam was performed. This patient is a 62-year-old Female who presents to the ED for evaluation of left flank pain radiating into left groin and left back. + nausea, no vomiting. + belching. Was treated for UTI by PCP. Family history of kidney stones. Physical Exam CONSTITUTIONAL: appears to be in pain holding L flank SKIN: pink, warm, dry RESPIRATORY: in no respiratory distress Initial orders for labs and / or imaging were placed and patient was placed in the waiting area until a bed is available. Please see further documentation for the full ED course.
[2023-07-11] MEDS ORDERED: ONDANSETRON INJ 2 MG/ML 2 ML VIAL IV STA (18:02)
[2023-07-11] MEDS ORDERED: MoRPHine SULFATE 4 MG/ML 1 ML CARP\\VIAL IV STA (18:02)
[2023-07-11 19:00] LABS: Appearance Urine Cloudy (Clear); Bacteria Urine Automated Negative (Negative); Bilirubin Urine Negative (Negative); Blood Urine Trace (Negative); Cast Urine Automated 0 /lpf (0-5); Color Urine Dark Yellow; Glucose Urine UA Negative (Negative); Ketones Urine Negative (Negative); Leukocyte Esterase Urine 3+ (Negative); Nitrite Urine Positive (Negative); Protein Urine Negative (Negative); Specific Gravity Urine 1.013 (1.000-1.030); Urobilinogen Urine Negative (Negative); WBC Urine Automated >30 /hpf (0-5); pH Urine 7.5 (4.5-7.5)
[2023-07-11 19:03] LABS: Basophils # (auto) 0.03 K/uL (0.00-0.20); Basophils % (auto) 0.3 %; Eosinophils # (auto) 0.21 K/uL (0.00-0.50); Eosinophils % (auto) 2.3 %; Hematocrit (blood only) 34.3 % (37.0-47.0); Hemoglobin 11.2 g/dl (12.0-16.0); Immature Granulocytes # (auto) 0.04 K/uL (0.01-0.20); Immature Granulocytes % (auto) 0.4 %; Lymphocytes # (auto) 1.98 K/uL (1.20-3.40); Mean Corpuscular Hemoglobin 27.9 pg (25.0-34.0); Mean Corpuscular Hgb Conc 32.7 g/dL (32.0-36.0); Mean Corpuscular Volume 85.3 fL (80.0-100.0); Mean Platelet Volume 9.3 fL (9.4-12.4); Monocytes # (auto) 0.53 K/uL (0.11-0.59); Monocytes % (auto) 5.9 %; Neutrophils # (auto) 6.22 K/uL (1.40-6.50); Neutrophils % (auto) 69.1 %; Platelet Count 437 K/uL (130-400); RDW Coefficient of Variation 13.2 % (11.5-14.5); RDW Standard Deviation 40.9 fL (36.4-46.3); Red Blood Count 4.02 M/uL (4.20-5.40); White Blood Count 9.01 K/ul (4.8-10.8)
[2023-07-11] MEDS ORDERED: KETOROLAC TROMETHAMINE 15 MG/ML VIAL IV ONE (19:07)
[2023-07-11 19:18] LABS: Albumin Globulin Ratio 1.2 (0.9-2); Albumin Level 4.2 gm/dl (3.4-5.0); BUN Creatinine Ratio 26.2 (10-20); Bilirubin,Total 0.3 mg/dl (0.2-1.0); Calcium 9.4 mg/dl (8.6-10.3); Est GFR (African American) 85.1 ml/min; Est GFR (Non-African American) 73.4 ml/min; Globulin 3.4 gm/dl (2.5-4.0); Potassium 3.8 mmol/L (3.5-5.1); Total Protein 7.6 gm/dl (6.0-8.3)
[2023-07-11 19:24] LABS: Troponin I High Sensitivity 3.9 pg/ml (0-14)
[2023-07-11] MEDS ORDERED: OPTIRAY 320 500ml IV ONE (19:51)
--- NOTE | 2023-07-11 20:10 | CT Scan Report ---
CT OF THE ABDOMEN AND PELVIS WITH CONTRAST CLINICAL HISTORY: left flank pain radiating into groin/back COMPARISON STUDY: None. TECHNIQUE: Following IV administration of 82 mL of Optiray, axial images of the abdomen and pelvis we re obtained from the lung bases to the proximal femurs. Images were reviewed in the axial, sagittal, and coronal planes. IV contrast was administered without complication. Automated exposure control wa s utilized for the study. A dose lowering technique was utilized adhering to the principles of ALARA . CT DOSE: 1308.92 mGy.cm FINDINGS: Trace bilateral pleural effusions. An 8 mm x 6 mm left ureterovesical junction calculus res ults in moderate to severe left hydroureteronephrosis with delayed left nephrogram. Multiple small le ft renal calculi measure up to 6 mm. Multiple right renal calculi measure up to 8 mm. There are no ri ght ureteral calculi. There are no right hydronephrosis. Liver, spleen, adrenal glands and pancreas a re unremarkable. Slight prominence of the intrahepatic bile ducts is likely within normal limits. The re is no evidence for a bowel obstruction. The appendix is normal. There is colonic diverticulosis wi thout evidence for acute diverticulitis. No lymphadenopathy is present. There are no fluid collection s. Right hip arthroplasty is intact. IMPRESSION: 1. 8 mm x 6 mm left ureterovesical junction calculus results in moderate to severe left hydroureteron ephrosis with delayed nephrogram mild left perinephric fluid and stranding. 2. Bilateral nephrolithiasis. No right ureteral calculi. No right hydronephrosis. ACT 112: Negative or not required by law. Electronically signed by: Sha Medina M.D. 07/11/2023 8:08 PM
[2023-07-11] MEDS ORDERED: cefTRIAXone SODIUM 2,000 MG/50 ML BAG IV STA (21:19)
--- NOTE | 2023-07-11 21:44 | History & Physical Report ---
Date of Service July 11, 2023 Assessment & Plan (1) Urinary tract infection: Plan: -Ascending urinary tract infection/pyelonephritis without sepsis, pt currently hemodynamically stable and afebrile -Ceftriaxone given in ER, will continue for now -UCx pending, though previous UCx 06/18 and 07/09 growing pansensitive Klebsiella pneumoniae -Zofran PRN nausea -Toradol and Tylenol PRN pain -Monitor CBC (2) Obstructive uropathy: Plan: -8 x 6 mm L UVJ stone with resultant hydronephrosis -Urology consulted, anticipate OR in AM -Continue mIVF in interim (3) Hyperlipidemia: Plan: -Continue statin (4) Rheumatoid arthritis: Plan: -Continue Xeljanz Plan FENGI: NPO midnight, IVF Code status: Full DVT prophylaxis: SCDs, OR in AM Isolation: None Unit: Medical/surgical Disposition planning: Likely home History of Present Illness Chief Complaint: Flank pain Primary Care Provider: Ericka Medina MD Pt is 62 yo F with PMH RA, HLD presenting for urinary symptoms. Pt reports onset of cloudy urine since early 06/2023. Seen PCP on 06/18 and pre scribed 10 day course of cefdinir due to UTI after positive UA. Developed symptoms of fever, chills, urinary frequency increase develop that same night. She did have L flank pain begin after finishing antibiotics. Since 07/06 pt reports increased L flank pain with L back pain, nausea w/ NBNB emesis x2, fever x3 days with Tmax 102.4 F. On 07/08 she experienced increased urinary symptoms including dysuria and frequency. Did see PCP again and had repeat UA but was not prescribed antibiotics yet. Symptoms worsened until today and pt presented for ER evaluation. Pt arrived to ER hemodynamically stable. Initial evaluation- unremarkable CBC, CMP, lactate. UA w/ nitries, LE, WBCs, no bacteria. CTAP demonstrating 8 x 6 mm L ureterovesicular junction calculus w/ moderate-severe L hydronephrosis and perinephric fluid + stranding. ER interventions- morphine 4 mg IV, Zofran 4 mg IV, 1L NSS bolus, Toradol 15 mg IV, ceftriaxone. At present, pt reports no new complaints. Allergies Allergy/AdvReac Type Severity Reaction Status Date / Time Sulfa (Sulfonamide AdvReac Intermediate Nausea Verified 07/11/23 20:57 Antibiotics) Home Medications Medication Instructions Recorded Confirmed Type tofacitinib 11 mg tablet,extended 11 mg PO DAILY 05/03/19 07/11/23 History release 24 hr (Xeljanz XR) acetaminophen 500 mg tablet 1,000 mg PO TID PRN Pain 01/05/23 07/11/23 History (Tylenol Extra Strength) meloxicam 15 mg tablet 15 mg PO DAILY 01/05/23 07/11/23 History azelastine 137 mcg (0.1 %) nasal 1 spray intranasal DAILY PRN 03/13/23 07/11/23 Rx spray aerosol Allergy Symptoms #90 mL cyclobenzaprine 5 mg tablet 5 - 10 mg PO HS PRN muscle spasm 06/16/23 07/11/23 History rosuvastatin 5 mg tablet 5 mg PO DAILY #90 tabs 06/17/23 07/11/23 Rx sumatriptan succinate 50 mg tablet See Rx Instructions .Route 06/17/23 07/11/23 Rx .COMPLEX PRN Migraine Headache #27 tabs estradiol 0.01% (0.1 mg/gram) See Rx Instructions .Route 07/08/23 07/11/23 Rx vaginal cream .COMPLEX #42.5 grams mometasone 50 mcg/actuation nasal 2 spray intranasal DAILY PRN 07/11/23 07/11/23 History spray Congestion multivitamin 1 tab PO DAILY 07/11/23 07/11/23 History Past Med/Surg History Medical History Hyperlipidemia Gregor's thyroiditis Diverticulosis Osteoporosis Rheumatoid arthritis Chronic sinusitis History of basal cell carcinoma Surgical History S/P total right hip arthroplasty (11/2022) Hx of colonoscopy History of ankle surgery RIGHT Status post right knee replacement History of foot surgery R/L History of dilation and curettage Family History Unknown Cancer Crohn's disease Stroke Leukemia Social History Smoking Status: Never smoker Second Hand Exposure: No; Do You Dip or Chew Tobacco: No; Hx Alcohol Use: Yes Hx Substance Use: No Preferred Language: French Communication Ability: Effective Phone Representative Required: No Beliefs That Will Affect Care: None marital status: Current Living Situation: Spouse Other Information That Helps Us Care for You: No Feels Safe at Home: Yes Assistive Devices: None Review of Systems Review of Systems: Per HPI/Subjective Physical Exam Physical Exam: General: well-appearing, no acute distress HEENT: PERRL, EOMI, conjunctivae clear without injection, anicteric sclerae, moist mucous membranes, clear oropharynx without exudate or erythema Neck: supple, trachea midline, no thyromegaly, no JVD, no cervical lymphadenopathy CV: RRR, normal S1 and S2, no murmurs Resp: CTAB, no increased work of breathing, no crackles or wheezes Abd: Soft, tender to L flank + L CVA tenderness, nondistended, no guarding or rebound, no hepatosplenomegaly MSK: Normal bulk of all four extremities Neuro: AOx3, no focal motor or sensory deficits Skin: no rashes or lesions, warm and dry Ext: no LE peripheral edema or erythema, capillary refill <2s in all four extremities, 2+ LE peripheral pulses b/l Results & Data Results & Data Vital Signs (Past 12 Hours) Vital Signs Temp Pulse Pulse Resp BP BP Pulse Ox 07/11/23 21:00 80 18 153/82 H 94 07/11/23 19:00 86 07/11/23 18:02 99 07/11/23 17:59 36.8 C 95 H 22 162/98 H 94 O2 Del Method 07/11/23 21:00 Room Air 07/11/23 19:00 07/11/23 18:02 Room Air 07/11/23 17:59 Room Air Laboratory Results Laboratory Results WBC 9.01 K/ul (4.8-10.8) 07/11/23 18:47 RBC 4.02 M/uL (4.20-5.40) L 07/11/23 18:47 Hgb 11.2 g/dl (12.0-16.0) L 07/11/23 18:47 Hct 34.3 % (37.0-47.0) L 07/11/23 18:47 MCV 85.3 fL (80.0-100.0) 07/11/23 18:47 MCH 27.9 pg (25.0-34.0) 07/11/23 18:47 MCHC 32.7 g/dL (32.0-36.0) 07/11/23 18:47 RDW Std Deviation 40.9 fL (36.4-46.3) 07/11/23 18:47 RDW Coeff of Kaushik 13.2 % (11.5-14.5) 07/11/23 18:47 Plt Count 437 K/uL (130-400) H 07/11/23 18:47 MPV 9.3 fL (9.4-12.4) L 07/11/23 18:47 Immature Gran % (Auto) 0.4 % 07/11/23 18:47 Neut % (Auto) 69.1 % 07/11/23 18:47 Lymph % (Auto) 22.0 % 07/11/23 18:47 [place] % (Auto) 5.9 % 07/11/23 18:47 Eos % (Auto) 2.3 % 07/11/23 18:47 Baso % (Auto) 0.3 % 07/11/23 18:47 Neut # (Auto) 6.22 K/uL (1.40-6.50) 07/11/23 18:47 Lymph # (Auto) 1.98 K/uL (1.20-3.40) 07/11/23 18:47 [place] # (Auto) 0.53 K/uL (0.11-0.59) 07/11/23 18:47 Eos # (Auto) 0.21 K/uL (0.00-0.50) 07/11/23 18:47 Baso # (Auto) 0.03 K/uL (0.00-0.20) 07/11/23 18:47 Immature Gran # (Auto) 0.04 K/uL (0.01-0.20) 07/11/23 18:47 Sodium 136 mmol/L (136-145) 07/11/23 18:47 Potassium 3.8 mmol/L (3.5-5.1) 07/11/23 18:47 Chloride 101 mmol/L (98-107) 07/11/23 18:47 Carbon Dioxide 25 mmol/L (21-32) 07/11/23 18:47 Anion Gap 10 (3-11) 07/11/23 18:47 BUN 22 mg/dl (6-23) 07/11/23 18:47 Creatinine 0.84 mg/dl (0.6-1.2) 07/11/23 18:47 Est Cr Clr Drug Dosing 70.0 ml/min 07/11/23 18:47 Est GFR ( Amer) 85.1 ml/min 07/11/23 18:47 Est GFR (Non-Af Amer) 73.4 ml/min 07/11/23 18:47 BUN/Creatinine Ratio 26.2 (10-20) H 07/11/23 18:47 Glucose 102 mg/dl (70-99(Fasting)) H 07/11/23 18:47 Calcium 9.4 mg/dl (8.6-10.3) 07/11/23 18:47 Total Bilirubin 0.3 mg/dl (0.2-1.0) 07/11/23 18:47 AST 15 U/L (13-39) 07/11/23 18:47 ALT 11 U/L (7-52) 07/11/23 18:47 Alkaline Phosphatase 72 U/L (34-104) 07/11/23 18:47 Troponin I High Sens 3.9 pg/ml (0-14) 07/11/23 18:47 Total Protein 7.6 gm/dl (6.0-8.3) 07/11/23 18:47 Albumin 4.2 gm/dl (3.4-5.0) 07/11/23 18:47 Globulin 3.4 gm/dl (2.5-4.0) 07/11/23 18:47 Albumin/Globulin Ratio 1.2 (0.9-2) 07/11/23 18:47 Lipase 33 U/L (11-82) 07/11/23 18:47 Urine Color Dark Yellow 07/11/23 18:43 Urine Appearance Cloudy (Clear) A 07/11/23 18:43 Urine pH 7.5 (4.5-7.5) 07/11/23 18:43 Ur Specific Declo 1.013 (1.000-1.030) 07/11/23 18:43 Urine Protein Negative (Negative) 07/11/23 18:43 Urine Glucose (UA) Negative (Negative) 07/11/23 18:43 Urine Ketones Negative (Negative) 07/11/23 18:43 Urine Blood Trace (Negative) H 07/11/23 18:43 Urine Nitrite Positive (Negative) A 07/11/23 18:43 Urine Bilirubin Negative (Negative) 07/11/23 18:43 Urine Urobilinogen Negative (Negative) 07/11/23 18:43 Ur Leukocyte Esterase 3+ (Negative) H 07/11/23 18:43 Urine WBC (Auto) >30 /hpf (0-5) H 07/11/23 18:43 Urine RBC (Auto) 5-10 /hpf (0-4) H 07/11/23 18:43 U Hyaline Cast (Auto) 0 /lpf (0-5) 07/11/23 18:43 U Epithel Cells (Auto) 10-20 /lpf (0-5) H 07/11/23 18:43 Urine Bacteria (Auto) Negative (Negative) 07/11/23 18:43 Impressions Abdomen/Pelvis CT 07/11/23 18:02 CT OF THE ABDOMEN AND PELVIS WITH CONTRAST CLINICAL HISTORY: left flank pain radiating into groin/back COMPARISON STUDY: None. TECHNIQUE: Following IV administration of 82 mL of Optiray, axial images of the abdomen and pelvis were obtained from the lung bases to the proximal femurs. Images were reviewed in the axial, sagittal, and coronal planes. IV contrast was administered without complication. Automated exposure control was utilized for the study. A dose lowering technique was utilized adhering to the principles of ALARA. CT DOSE: 1308.92 mGy.cm FINDINGS: Trace bilateral pleural effusions. An 8 mm x 6 mm left ureterovesical junction calculus results in moderate to severe left hydroureteronephrosis with delayed left nephrogram. Multiple small left renal calculi measure up to 6 mm. Multiple right renal calculi measure up to 8 mm. There are no right ureteral calculi. There are no right hydronephrosis. Liver, spleen, adrenal glands and pancreas are unremarkable. Slight prominence of the intrahepatic bile ducts is likely within normal limits. There is no evidence for a bowel obstruction. The appendix is normal. There is colonic diverticulosis without evidence for acute diverticulitis. No lymphadenopathy is present. There are no fluid collections. Right hip arthroplasty is intact. IMPRESSION: 1. 8 mm x 6 mm left ureterovesical junction calculus results in moderate to severe left hydroureteronephrosis with delayed nephrogram mild left perinephric fluid and stranding. 2. Bilateral nephrolithiasis. No right ureteral calculi. No right hydronephrosis. ACT 112: Negative or not required by law. Electronically signed by: Sha Medina M.D. 07/11/2023 8:08 PM Supervising Physician Co-Signing Physician Notes Patient seen and examined, chart reviewed, case discussed with Dr. Mary and I agree with the assessment and plan as above. In brief, patient is a pleasant 62yo female presenting with left flank pain. Found with UTI and obstructing renal stone. Patient voices concern re: recurrence of UTIs. She is on tofacitinib for her RA and reports that it controls her symptoms very well. She has, however, had an increase in UTIs since being on the tofacitinib. She is aware that recurrent infections is a known side effect of this medication and is discussing with her doctor possible medication changes. At this time she is afebrile, HD stable, non-toxic in appearance No nausea. Pain is well controlled. Remainder of exam is unremarkable with exception of left flank pain and CVA tenderness Labs and images reviewed WBC is normal UA with nitrites, LE Assessment/Plan UTI with obstructive stone -Follow culture -Ceftriaxone -Urology consultation appreciated -NPO for stent placement in AM -Remainder as above Resident Activity Tracking Resident Involvement: Resident Care Provided Care Provided: Adult Hospital Medicine (4) Rheumatoid arthritis Rheumatoid arthritis location: unspecified site Rheumatoid factor presence: unspecified presence Qualified Code(s): M06.9 - Rheumatoid arthritis, unspecified
--- NOTE | 2023-07-11 23:22 | Emergency Department Note ---
Impression & Plan Renal colic, UTI (urinary tract infection) ED Provider Note NAME: CRISSY LUI AGE: 62 SEX: F : 1960 ARRIVES VIA: Walk-In INFORMANT: Patient, ED PROVIDER(S): Sravani Matthews MD CHIEF COMPLAINT: flank pain HPI: This is a 62 YO F presenting for L flank pain. Patient initially had a history of UTI about 1 week ago. She finished her antibiotics and had a follow- up urinalysis yesterday, still showing signs of UTI. Patient had no symptoms from this UTI. Otherwise over the past 1 to 2 days she has noticed increasing left flank pain. She notes associated nausea and vomiting due to this pain. She states that she never had pain like this before. Has left flank pain rating across her abdomen into her groin. She states her multiple siblings, mother and grandmother all have kidney stones. She is a medication before. She notes no fever, chills. ROS: See above HPI for pertinent positives & negatives. A total of 10 systems reviewed and were otherwise negative. PAST MEDICAL HISTORY: See Below PAST SURGICAL HISTORY: See Below FAMILY HISTORY: See Below SOCIAL HISTORY: See Below HOME MEDICATIONS: See Below ALLERGIES: See Below VITALS: See Below PHYSICAL EXAMINATION: General: resting comfortably in no acute distress Head: Normocephalic and atraumatic Eyes: Normal inspection, extraocular muscles intact Ear, nose, throat: Normal external exam Neck: Normal range of motion Respiratory: lungs clear to auscultation bilaterally Cardiovascular: Regular rate/rhythm, no murmur GI: Positive CVA tenderness, left groin pain Extremities: nontender, moves all extremities Neuro: The patient awake and alert, appropriately conversive, no focal deficits, symmetric faces Skin: Warm, dry, and intact MEDICAL DECISION MAKING: This is a 62-year-old female presenting for left flank pain. Will do CT abdomen/pelvis to rule out intra-abdominal process versus renal colic Will do basic blood work including urinalysis Lab work was reviewed showing no leukocytosis, slight anemia, slight elevated platelets. Very slight creatinine elevation otherwise no electrolyte disturbances. Urinalysis reveals blood, leuk esterase, WBCs without bacteria. This is concerning for UTI. CT abdomen/pelvis reveals an 8 x 6 stone, obstructing. Discussed with on-call urology, Dr. Escobar who recommends inpatient admission for antibiotics and stenting tomorrow. Discussed with hospitalist, Dr. Lawrence for admission. Differential diagnosis: Pyelonephritis, cystitis, renal colic, septic stone ER treatment provided: See below Diagnostics interpreted by me: ECG: ECG independently interpreted by me with normal sinus rhythm, rate of 74, normal axis, normal WA, normal QRS, normal QTc, no ST segment elevations consistent with STEMI criteria Cardiac Monitoring: An order was placed for continuous cardiac monitoring. The monitor shows a rate of 82 with sinus rhythm Laboratory studies: As stated above and show below. Imaging studies: See below. Past Med/Surg History Medical History (Updated 07/12/23 @ 00:06 by Sravani Matthews MD) Hyperlipidemia Gregor's thyroiditis Diverticulosis Osteoporosis Rheumatoid arthritis Chronic sinusitis History of basal cell carcinoma Surgical History (Updated 06/22/23 @ 11:55 by Ericka Medina MD) S/P total right hip arthroplasty (11/2022) Hx of colonoscopy History of ankle surgery RIGHT Status post right knee replacement History of foot surgery R/L History of dilation and curettage Family History Unknown Cancer Crohn's disease Stroke Leukemia Social History Smoking Status: Never smoker Second Hand Exposure: No; Do You Dip or Chew Tobacco: No; Hx Alcohol Use: Yes Hx Substance Use: No Preferred Language: Burkinan Communication Ability: Effective Food Quality Tester Required: No Beliefs That Will Affect Care: None marital status: Current Living Situation: Spouse Feels Safe at Home: Yes Assistive Devices: Walker Allergies Allergies Allergy/AdvReac Type Severity Reaction Status Date / Time Sulfa (Sulfonamide AdvReac Intermediate Nausea Verified 07/11/23 20:57 Antibiotics) Home Meds Home Medications Medication Instructions Recorded Confirmed tofacitinib 11 mg tablet,extended 11 mg PO DAILY 05/03/19 07/11/23 release 24 hr (Xeljanz XR) acetaminophen 500 mg tablet 1,000 mg PO TID PRN Pain 01/05/23 07/11/23 (Tylenol Extra Strength) meloxicam 15 mg tablet 15 mg PO DAILY 01/05/23 07/11/23 cyclobenzaprine 5 mg tablet 5 - 10 mg PO HS PRN muscle spasm 06/16/23 07/11/23 mometasone 50 mcg/actuation nasal 2 spray intranasal DAILY PRN 07/11/23 07/11/23 spray Congestion multivitamin 1 tab PO DAILY 07/11/23 07/11/23 Previous Rx's Medication Instructions Recorded azelastine 137 mcg (0.1 %) nasal 1 spray intranasal DAILY PRN 03/13/23 spray aerosol Allergy Symptoms #90 mL rosuvastatin 5 mg tablet 5 mg PO DAILY #90 tabs 06/17/23 sumatriptan succinate 50 mg tablet See Rx Instructions .Route 06/17/23 .COMPLEX PRN Migraine Headache #27 tabs estradiol 0.01% (0.1 mg/gram) See Rx Instructions .Route 07/08/23 vaginal cream .COMPLEX #42.5 grams Results & Data (ED) Vital Signs Vital Signs - 24 hr 07/11/23 17:59 07/11/23 18:02 07/11/23 19:00 Temperature 36.8 C Temperature Source Temporal Artery Scan Pulse Rate 95 H 86 Pulse Rate [Bilateral] Pulse Rate from SpO2 Sensor Respiratory Rate 22 Respiratory Effort / Characteristics Non-Labored Respiratory Depth Normal Blood Pressure 162/98 H Blood Pressure [Right Arm] Blood Pressure Mean 119 Blood Pressure Mean [Right Arm] Pulse Oximetry 94 99 Oxygen Delivery Method Room Air Room Air Sepsis Recent Fever Within 48 Hours No Sepsis New/Unexplained Change in Mental Status No Sepsis Action Taken by Nursing No Action Required 07/11/23 19:01 07/11/23 19:30 07/11/23 20:05 Temperature Temperature Source Pulse Rate 86 Pulse Rate [Bilateral] Pulse Rate from SpO2 Sensor 85 74 84 Respiratory Rate 20 Respiratory Effort / Characteristics Respiratory Depth Blood Pressure 165/122 H 151/84 H Blood Pressure [Right Arm] Blood Pressure Mean 136 106 Blood Pressure Mean [Right Arm] Pulse Oximetry 92 100 99 Oxygen Delivery Method Sepsis Recent Fever Within 48 Hours Sepsis New/Unexplained Change in Mental Status Sepsis Action Taken by Nursing 07/11/23 20:11 07/11/23 20:30 07/11/23 20:30 Temperature Temperature Source Pulse Rate Pulse Rate [Bilateral] Pulse Rate from SpO2 Sensor 85 78 Respiratory Rate Respiratory Effort / Characteristics Respiratory Depth Blood Pressure 167/87 H 141/79 H Blood Pressure [Right Arm] Blood Pressure Mean 113 113 Blood Pressure Mean [Right Arm] Pulse Oximetry 100 97 Oxygen Delivery Method Sepsis Recent Fever Within 48 Hours Sepsis New/Unexplained Change in Mental Status Sepsis Action Taken by Nursing 07/11/23 20:30 07/11/23 21:00 07/11/23 21:00 Temperature Temperature Source Pulse Rate Pulse Rate [Bilateral] 80 Pulse Rate from SpO2 Sensor Respiratory Rate 18 Respiratory Effort / Characteristics Respiratory Depth Blood Pressure 141/79 H 153/82 H Blood Pressure [Right Arm] 153/82 H Blood Pressure Mean 113 108 Blood Pressure Mean [Right Arm] 105 Pulse Oximetry 94 Oxygen Delivery Method Room Air Sepsis Recent Fever Within 48 Hours Sepsis New/Unexplained Change in Mental Status Sepsis Action Taken by Nursing 07/11/23 21:00 07/11/23 21:30 07/11/23 21:30 Temperature Temperature Source Pulse Rate Pulse Rate [Bilateral] Pulse Rate from SpO2 Sensor 84 78 Respiratory Rate Respiratory Effort / Characteristics Respiratory Depth Blood Pressure 152/82 H Blood Pressure [Right Arm] Blood Pressure Mean 118 Blood Pressure Mean [Right Arm] Pulse Oximetry 91 97 Oxygen Delivery Method Sepsis Recent Fever Within 48 Hours Sepsis New/Unexplained Change in Mental Status Sepsis Action Taken by Nursing 07/11/23 22:00 07/11/23 22:00 Temperature Temperature Source Pulse Rate Pulse Rate [Bilateral] Pulse Rate from SpO2 Sensor 84 Respiratory Rate Respiratory Effort / Characteristics Respiratory Depth Blood Pressure 154/85 H Blood Pressure [Right Arm] Blood Pressure Mean 101 Blood Pressure Mean [Right Arm] Pulse Oximetry 96 Oxygen Delivery Method Sepsis Recent Fever Within 48 Hours Sepsis New/Unexplained Change in Mental Status Sepsis Action Taken by Nursing Laboratory Data 07/11/23 18:47 07/11/23 18:47 Lab Results 07/11/23 07/11/23 Range/Units 18:43 18:47 WBC 9.01 (4.8-10.8) K/ul RBC 4.02 L (4.20-5.40) M/uL Hgb 11.2 L (12.0-16.0) g/dl Hct 34.3 L (37.0-47.0) % MCV 85.3 (80.0-100.0) fL MCH 27.9 (25.0-34.0) pg MCHC 32.7 (32.0-36.0) g/dL RDW Std Deviation 40.9 (36.4-46.3) fL RDW Coeff of Kaushik 13.2 (11.5-14.5) % Plt Count 437 H (130-400) K/uL MPV 9.3 L (9.4-12.4) fL Immature Gran % (Auto) 0.4 % Neut % (Auto) 69.1 % Lymph % (Auto) 22.0 % [place] % (Auto) 5.9 % Eos % (Auto) 2.3 % Baso % (Auto) 0.3 % Neut # (Auto) 6.22 (1.40-6.50) K/uL Lymph # (Auto) 1.98 (1.20-3.40) K/uL [place] # (Auto) 0.53 (0.11-0.59) K/uL Eos # (Auto) 0.21 (0.00-0.50) K/uL Baso # (Auto) 0.03 (0.00-0.20) K/uL Immature Gran # (Auto) 0.04 (0.01-0.20) K/uL Sodium 136 (136-145) mmol/L Potassium 3.8 (3.5-5.1) mmol/L Chloride 101 (98-107) mmol/L Carbon Dioxide 25 (21-32) mmol/L Anion Gap 10 (3-11) BUN 22 (6-23) mg/dl Creatinine 0.84 (0.6-1.2) mg/dl Est Cr Clr Drug Dosing 70.0 ml/min Est GFR ( Amer) 85.1 ml/min Est GFR (Non-Af Amer) 73.4 ml/min BUN/Creatinine Ratio 26.2 H (10-20) Glucose 102 H (70-99(Fasting)) mg/dl Calcium 9.4 (8.6-10.3) mg/dl Total Bilirubin 0.3 (0.2-1.0) mg/dl AST 15 (13-39) U/L ALT 11 (7-52) U/L Alkaline Phosphatase 72 (34-104) U/L Troponin I High Sens 3.9 (0-14) pg/ml Total Protein 7.6 (6.0-8.3) gm/dl Albumin 4.2 (3.4-5.0) gm/dl Globulin 3.4 (2.5-4.0) gm/dl Albumin/Globulin Ratio 1.2 (0.9-2) Lipase 33 (11-82) U/L Urine Color Dark Yellow Urine Appearance Cloudy A (Clear) Urine pH 7.5 (4.5-7.5) Ur Specific [place] 1.013 (1.000-1.030) Urine Protein Negative (Negative) Urine Glucose (UA) Negative (Negative) Urine Ketones Negative (Negative) Urine Blood Trace H (Negative) Urine Nitrite Positive A (Negative) Urine Bilirubin Negative (Negative) Urine Urobilinogen Negative (Negative) Ur Leukocyte Esterase 3+ H (Negative) Urine WBC (Auto) >30 H (0-5) /hpf Urine RBC (Auto) 5-10 H (0-4) /hpf U Hyaline Cast (Auto) 0 (0-5) /lpf U Epithel Cells (Auto) 10-20 H (0-5) /lpf Urine Bacteria (Auto) Negative (Negative) Administered Medications Discontinued Medications Sodium Chloride (Nss) 1,000 mls @ 999 mls/hr IV .Q1H1M STA Stop: 07/11/23 19:01 Last Infusion: 07/11/23 21:23 Dose: Infused Documented By: JESUS MANUEL Admin: 07/11/23 18:53 Dose: 999 mls/hr Documented By: LESLIE Ceftriaxone Sodium (Rocephin) 2,000 mg in 50 mls @ 100 mls/hr IV NOW STA Stop: 07/11/23 21:48 Last Infusion: 07/11/23 22:43 Dose: Infused Documented By: Admin: 07/11/23 22:12 Dose: 100 mls/hr Documented By: PATT Ioversol (Optiray 320 500ml) 82 ml IV ONCE ONE Stop: 07/11/23 19:52 Last Admin: 07/11/23 19:52 Dose: 82 ml Documented By: ADDY Ketorolac Tromethamine (Ketorolac Tromethamine 15 Mg/Ml Vial) 15 mg IV NOW ONE Stop: 07/11/23 19:08 Last Admin: 07/11/23 20:16 Dose: 15 mg Documented By: PATT Morphine Sulfate (Morphine Sulfate 4 Mg/Ml 1 Ml Carp\Vial) 4 mg IV NOW STA Stop: 07/11/23 18:03 Last Admin: 07/11/23 18:52 Dose: 4 mg Documented By: LESLIE Ondansetron HCl (Ondansetron Inj 2 Mg/Ml 2 Ml Vial) 4 mg IV NOW STA Stop: 07/11/23 18:03 Last Admin: 07/11/23 18:52 Dose: 4 mg Documented By: STEAM FRAME OPERATOR Imaging Data Radiologist's Impression: Abdomen/Pelvis CT 07/11/23 18:02 CT OF THE ABDOMEN AND PELVIS WITH CONTRAST CLINICAL HISTORY: left flank pain radiating into groin/back COMPARISON STUDY: None. TECHNIQUE: Following IV administration of 82 mL of Optiray, axial images of the abdomen and pelvis were obtained from the lung bases to the proximal femurs. Images were reviewed in the axial, sagittal, and coronal planes. IV contrast was administered without complication. Automated exposure control was utilized for the study. A dose lowering technique was utilized adhering to the principles of ALARA. CT DOSE: 1308.92 mGy.cm FINDINGS: Trace bilateral pleural effusions. An 8 mm x 6 mm left ureterovesical junction calculus results in moderate to severe left hydroureteronephrosis with delayed left nephrogram. Multiple small left renal calculi measure up to 6 mm. Multiple right renal calculi measure up to 8 mm. There are no right ureteral calculi. There are no right hydronephrosis. Liver, spleen, adrenal glands and pancreas are unremarkable. Slight prominence of the intrahepatic bile ducts is likely within normal limits. There is no evidence for a bowel obstruction. The appendix is normal. There is colonic diverticulosis without evidence for acute diverticulitis. No lymphadenopathy is present. There are no fluid collections. Right hip arthroplasty is intact. IMPRESSION: 1. 8 mm x 6 mm left ureterovesical junction calculus results in moderate to severe left hydroureteronephrosis with delayed nephrogram mild left perinephric fluid and stranding. 2. Bilateral nephrolithiasis. No right ureteral calculi. No right hydronephrosis. ACT 112: Negative or not required by law. Electronically signed by: Sha Medina M.D. 07/11/2023 8:08 PM Discharge Plan Visit Data Chief Complaint: Flank Pain Stated Complaint: PELVIC PAIN, LOWER LT BACK PAIN, NAUSEA ED Provider: Sravani Matthews Discharge Problem: Renal colic, UTI (urinary tract infection) Patient Disposition: Admitted As Inpatient Discharge Instructions Interventions: ED Discharge Assessment Last Done: 07/11/23 23:24
[2023-07-12] MEDS ORDERED: LACTATED RINGER'S 1,000 ML IV SCH (00:02)
[2023-07-12] MEDS: ONDANSETRON INJ 2 MG/ML 2 ML VIAL IV PRN (00:35)
[2023-07-12] MEDS: KETOROLAC TROMETHAMINE 15 MG/ML VIAL IV PRN (00:42)
--- NOTE | 2023-07-12 03:34 | Billing Data ---
Date of Service July 11, 2023 Coding Level of Care Code 50556 INT INP/OBS CARE
[2023-07-12] MEDS ORDERED: PROPOFOL IV EMULSION 10 MG/ML 20 ML VIAL IV ONE ×2 (07:02→08:42)
[2023-07-12] MEDS ORDERED: ONDANSETRON INJ 2 MG/ML 2 ML VIAL ONE (07:02)
[2023-07-12] MEDS ORDERED: LIDOCAINE 2% 2 ML VIAL/AMP(20MG/ML) INFIL ONE (07:02)
[2023-07-12] MEDS ORDERED: fentaNYL citrate PF 100 MCG/2 ML VIAL ONE (07:02)
[2023-07-12] MEDS ORDERED: MIDAZOLAM HCL 1 MG/ML 2ML VIAL ONE (07:02)
--- NOTE | 2023-07-12 07:07 | Urology Consultation ---
Date of Consultation July 12, 2023 Assessment & Plan (1) UTI (urinary tract infection): (2) Ureterolithiasis: Plan 62-year-old female with a left obstructing distal ureteral calculus and urinalysis concerning for infection Given her urinary tract infection, recommend left ureteral stent placement. Explained that we cannot treat the stone at this time as it could worsen her infection. Plan to go to the OR for cystoscopy with left ureteral stent placement due to large stone and concern for infection Consent obtained. Patient marked Patient on ceftriaxone History of Present Illness Attending Physician: Edgard Hayden MD History of Present Illness 58-year-old 62-year-old female presented to hospital on 07/11/2023 with left fla nk pain. She was afebrile with stable vitals. Labs showed a white blood cell count of 9, creatinine 0.84 and a urinalysis that was nitrite positive, 3+ leukocyte esterase, greater than 30 WBCs, 5-10 RBCs and no bacteria. CT scan of the abdomen pelvis was performed and independently reviewed which shows a large left distal ureteral calculus with hydronephrosis. Admitted to medicine. She was given ceftriaxone. Allergies Allergy/AdvReac Type Severity Reaction Status Date / Time Sulfa (Sulfonamide AdvReac Intermediate Nausea Verified 07/11/23 20:57 Antibiotics) Home Medications Medication Instructions Recorded Confirmed Type tofacitinib 11 mg tablet,extended 11 mg PO DAILY 05/03/19 07/11/23 History release 24 hr (Xeljanz XR) acetaminophen 500 mg tablet 1,000 mg PO TID PRN Pain 01/05/23 07/11/23 History (Tylenol Extra Strength) meloxicam 15 mg tablet 15 mg PO DAILY 01/05/23 07/11/23 History azelastine 137 mcg (0.1 %) nasal 1 spray intranasal DAILY PRN 03/13/23 07/11/23 Rx spray aerosol Allergy Symptoms #90 mL cyclobenzaprine 5 mg tablet 5 - 10 mg PO HS PRN muscle spasm 06/16/23 07/11/23 History rosuvastatin 5 mg tablet 5 mg PO DAILY #90 tabs 06/17/23 07/11/23 Rx sumatriptan succinate 50 mg tablet See Rx Instructions .Route 06/17/23 07/11/23 Rx .COMPLEX PRN Migraine Headache #27 tabs estradiol 0.01% (0.1 mg/gram) See Rx Instructions .Route 07/08/23 07/11/23 Rx vaginal cream .COMPLEX #42.5 grams mometasone 50 mcg/actuation nasal 2 spray intranasal DAILY PRN 07/11/23 07/11/23 History spray Congestion multivitamin 1 tab PO DAILY 07/11/23 07/11/23 History Patient History Medical History Hyperlipidemia Gregor's thyroiditis Diverticulosis Osteoporosis Rheumatoid arthritis Chronic sinusitis History of basal cell carcinoma Surgical History S/P total right hip arthroplasty (11/2022) Hx of colonoscopy History of ankle surgery RIGHT Status post right knee replacement History of foot surgery R/L History of dilation and curettage Family History Unknown Cancer Crohn's disease Stroke Leukemia Social History Smoking Status: Never smoker Second Hand Exposure: No; Do You Dip or Chew Tobacco: No; Hx Alcohol Use: Yes Hx Substance Use: No Preferred Language: Libyan Communication Ability: Effective Camera Engineer Required: No Beliefs That Will Affect Care: None marital status: Current Living Situation: Spouse Other Information That Helps Us Care for You: No Feels Safe at Home: Yes Assistive Devices: None Review of Systems Review of Systems: 14 point review of systems negative outs margarita of what is listed above in HPI Physical Exam Physical Exam: General: Alert and oriented, no acute distress HEENT: Normocephalic, mucous membranes moist Pulmonary: Nonlabored respirations Abdomen: Nondistended Extremities: Moves all 4 spontaneously Neuro: No gross deficits Skin: Warm, dry, no rashes noted Results & Data Vital Signs (Past 12 Hours) Vital Signs Temp Pulse Pulse Resp BP BP Pulse Ox 07/12/23 00:05 36.6 C 83 18 162/92 H 96 07/11/23 23:24 98 07/11/23 23:00 82 14 95 07/11/23 23:00 146/89 H 07/11/23 23:00 79 18 146/89 H 94 07/11/23 22:30 144/87 H 07/11/23 22:30 82 18 97 12/02/23 22:00 154/85 H 07/11/23 22:00 96 07/11/23 21:30 152/82 H 07/11/23 21:30 97 07/11/23 21:00 91 07/11/23 21:00 153/82 H 07/11/23 21:00 80 18 153/82 H 94 07/11/23 20:30 141/79 H 07/11/23 20:30 141/79 H 07/11/23 20:30 97 07/11/23 20:11 167/87 H 100 07/11/23 20:05 99 07/11/23 19:30 151/84 H 100 O2 Del Method 07/12/23 00:05 Room Air 07/11/23 23:24 Room Air 07/11/23 23:00 07/11/23 23:00 07/11/23 23:00 Room Air 07/11/23 22:30 07/11/23 22:30 07/11/23 22:00 07/11/23 22:00 07/11/23 21:30 07/11/23 21:30 07/11/23 21:00 07/11/23 21:00 07/11/23 21:00 Room Air 07/11/23 20:30 07/11/23 20:30 07/11/23 20:30 07/11/23 20:11 07/11/23 20:05 07/11/23 19:30 PG Care Time/CCT Total # of Minutes Spent Total Time Spent with Patient: Total time spent is greater than 50% in coordination of care (as documented) at patient's floor/unit and/or counseling patient: Coding Level of Care Code 88762 IN/OBS CONSULT LVL 3,45M Diagnoses UTI (urinary tract infection) N39.0 Ureterolithiasis N20.1
[2023-07-12] MEDS ORDERED: DIATRIZOATE MEGLUMINE 30% 100ML VIAL INSTIL PRN (07:20)
--- NOTE | 2023-07-12 07:30 | Hospitalist Progress Note ---
Date of Service July 12, 2023 Assessment & Plan (1) Urinary tract infection: (2) Obstructive uropathy: (3) Hyperlipidemia: (4) Rheumatoid arthritis: Plan Chrissie La is 62 year-old female with past medical history of RA, HLD presenting for urinary symptoms. Urinary tract infection -Ascending urinary tract infection/pyelonephritis without sepsis, pt currently hemodynamically stable and afebrile -Continue Ceftriaxone, anticipate switch to PO antibiotics at time of discharge -Urine culture growing gram negative bacilli- speciation and sensitivities pending -Urine cultures from 06/18 and 07/09 growing Klebsiella pneumoniae (only resistant to macrobid) -Zofran PRN for nausea -Toradol and Tylenol PRN pain -Repeat CBC in a.m. Obstructive Uropathy -8 x 6 mm L UVJ stone with resultant hydronephrosis -Urology placed stent and completed lithotripsy -Pain control, antiemetics as above -As above, will treat current ascending UTI Hyperlipidemia -Continue statin Rheumatoid arthritis -Continue Xeljanz FENGI: Regular diet Code status: Full DVT prophylaxis: SCDs Admission and Anticipated Discharge Date Admission Date: July 11, 2023 Supervising Physician Co-Signing Physician Notes Attending attestation Pt seen and examined in concert with Dr. Ramirez. In agreement with the documented findings as noted in the resident documentation with any exceptions or additions as noted here. Essential resolution of pain complaint without urinary symptoms reported when evaluated immediately postoperatively. On examination, S1/S2 nl RRR no MCG. CTAB. Abd NT/ND BS+ve VS: 115/69, 80, 18, 36.7C, 95 RA Data: hgb 11.2, BUN 22, Cr 0.84 Urinary tract infection in the setting of obstructive uropathy - urology consult - continue ceftriaxone and f/u cultures. Pain control, nausea control as noted. Else see resident documentation as noted. Subjective Patient seen and examined at bedside, patient had just returned from surgery. She notes some mild nausea post-op but denies any current pain. States she has been dealing with this left sided flank pain on and off for 10+ days and has had UTI symptoms since early June despite antibiotic treatment. Patient's is also at bedside during encounter. Review of Systems Review of Systems: As per above Physical Exam Constitutional: WD/WN, vitals as above Eyes: + anicteric sclerae; no conjunctival abn ormality ENMT: Ears: no external ear abnormality Nose: no external nose abnormality Moist mucous membranes Respiratory: normal respiratory effort, lungs clear to auscultation Cardiovascular: Rate/Rhythm: regular rate and regular rhythm Heart Sounds: no murmur and no cardiac rub Skin: no rashes, warm and dry Psychiatric: A+Ox3, euthymic affect Results & Data Results & Data Vital Signs (Past 12 Hours) Vital Signs Temp Pulse Pulse Resp BP BP Pulse Ox 07/12/23 07:06 36.7 C 70 18 125/72 96 07/12/23 00:05 36.6 C 83 18 162/92 H 96 07/11/23 23:24 98 07/11/23 23:00 82 14 95 07/11/23 23:00 146/89 H 07/11/23 23:00 79 18 146/89 H 94 07/11/23 22:30 144/87 H 07/11/23 22:30 82 18 97 07/11/23 22:00 154/85 H 07/11/23 22:00 96 07/11/23 21:30 152/82 H 07/11/23 21:30 97 07/11/23 21:00 91 07/11/23 21:00 153/82 H 07/11/23 21:00 80 18 153/82 H 94 07/11/23 20:30 141/79 H 07/11/23 20:30 141/79 H 07/11/23 20:30 97 07/11/23 20:11 167/87 H 100 07/11/23 20:05 99 07/11/23 19:30 151/84 H 100 O2 Del Method 07/12/23 07:06 Room Air 07/12/23 00:05 Room Air 07/11/23 23:24 Room Air 07/11/23 23:00 07/11/23 23:00 07/11/23 23:00 Room Air 07/11/23 22:30 07/11/23 22:30 07/11/23 22:00 07/11/23 22:00 07/11/23 21:30 07/11/23 21:30 07/11/23 21:00 07/11/23 21:00 07/11/23 21:00 Room Air 07/11/23 20:30 07/11/23 20:30 07/11/23 20:30 07/11/23 20:11 07/11/23 20:05 07/11/23 19:30 Diagnostic Findings Abdomen/Pelvis CT 07/11/23 18:02 CT OF THE ABDOMEN AND PELVIS WITH CONTRAST CLINICAL HISTORY: left flank pain radiating into groin/back COMPARISON STUDY: None. TECHNIQUE: Following IV administration of 82 mL of Optiray, axial images of the abdomen and pelvis were obtained from the lung bases to the proximal femurs. Images were reviewed in the axial, sagittal, and coronal planes. IV contrast was administered without complication. Automated exposure control was utilized for the study. A dose lowering technique was utilized adhering to the principles of ALARA. CT DOSE: 1308.92 mGy.cm FINDINGS: Trace bilateral pleural effusions. An 8 mm x 6 mm left ureterovesical junction calculus results in moderate to severe left hydroureteronephrosis with delayed left nephrogram. Multiple small left renal calculi measure up to 6 mm. Multiple right renal calculi measure up to 8 mm. There are no right ureteral calculi. There are no right hydronephrosis. Liver, spleen, adrenal glands and pancreas are unremarkable. Slight prominence of the intrahepatic bile ducts is likely within normal limits. There is no evidence for a bowel obstruction. The appendix is normal. There is colonic diverticulosis without evidence for acute diverticulitis. No lymphadenopathy is present. There are no fluid collections. Right hip arthroplasty is intact. IMPRESSION: 1. 8 mm x 6 mm left ureterovesical junction calculus results in moderate to severe left hydroureteronephrosis with delayed nephrogram mild left perinephric fluid and stranding. 2. Bilateral nephrolithiasis. No right ureteral calculi. No right h ydronephrosis. ACT 112: Negative or not required by law. Electronically signed by: Sha Medina M.D. 07/11/2023 8:08 PM Retrograde Pyelogram 07/12/23 00:00 FL retrograde includes kub CLINICAL HISTORY: LT CYSTO STENT COMPARISON STUDY: CT of the abdomen and pelvis July 11, 2023. FLUOROSCOPY TIME: 10 seconds. Ka, r: 1.92 mGy FLUOROSCOPIC IMAGES: 4 FINDINGS: Fluoroscopy was provided during cystoscopy, lithotripsy, left retrograde pyelogram and left ureteral stent insertion. Left hydroureteronephrosis is noted. Proximal aspect of the left ureteral stent is within the left renal pelvis. IMPRESSION: Fluoroscopy provided during cystoscopy, lithotripsy, left retrograde pyelogram and left ureteral stent insertion. ACT 112: Negative or not required by law. Electronically signed by: Sha Medina M.D. 07/12/2023 9:40 AM Resident Activity Tracking Resident Involvement: Resident Care Provided Care Provided: Adult Hospital Medicine (4) Rheumatoid arthritis Rheumatoid arthritis location: unspecified site Rheumatoid factor presence: unspecified presence Qualified Code(s): M06.9 - Rheumatoid arthritis, unspecified
[2023-07-12] MEDS ORDERED: fentaNYL citrate PF 100 MCG/2 ML VIAL IV PRN (08:02)
[2023-07-12] MEDS ORDERED: ONDANSETRON INJ 2 MG/ML 2 ML VIAL IV PRN (08:02)
[2023-07-12] MEDS ORDERED: ATROPINE SULFATE 0.1 MG/ML 10ML SYR IV PRN (08:02)
[2023-07-12] MEDS ORDERED: ePHEDrine sulfate 50 MG/ML AMP IV PRN (08:02)
--- NOTE | 2023-07-12 08:03 | Anesthesiology Consultation ---
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 History Surgery Operation Date: 07/12/23 10:00 Proposed Procedures p Ureteral Stent Insertion/Removal(Left) - Morro Escobar MD Height/Weight Height: 5 ft 2 in Weight: 88.6 kg Allergies Allergy/AdvReac Type Severity Reaction Status Date / Time Sulfa (Sulfonamide AdvReac Intermediate Nausea Verified 07/11/23 20:57 Antibiotics) Medications Home Medications Medication Instructions Recorded Confirmed Last Taken tofacitinib 11 mg tablet,extended 11 mg PO DAILY 05/03/19 07/11/23 07/11/23 release 24 hr (Xeljanz XR) acetaminophen 500 mg tablet 1,000 mg PO TID PRN Pain 01/05/23 07/11/23 3 Weeks Ago (Tylenol Extra Strength) ~12/15/22 meloxicam 15 mg tablet 15 mg PO DAILY 01/05/23 07/11/23 07/11/23 azelastine 137 mcg (0.1 %) nasal 1 spray intranasal DAILY PRN 03/13/23 07/11/23 07/11/23 spray aerosol Allergy Symptoms #90 mL cyclobenzaprine 5 mg tablet 5 - 10 mg PO HS PRN muscle spasm 06/16/23 07/11/23 Unknown rosuvastatin 5 mg tablet 5 mg PO DAILY #90 tabs 06/17/23 07/11/23 Unknown sumatriptan succinate 50 mg tablet See Rx Instructions .Route 06/17/23 07/11/23 Unknown .COMPLEX PRN Migraine Headache #27 tabs estradiol 0.01% (0.1 mg/gram) See Rx Instructions .Route 07/08/23 07/11/23 07/11/23 vaginal cream .COMPLEX #42.5 grams mometasone 50 mcg/actuation nasal 2 spray intranasal DAILY PRN 07/11/23 07/11/23 07/11/23 spray Congestion multivitamin 1 tab PO DAILY 07/11/23 07/11/23 07/11/23 Active Medications Generic Name Dose Route Start Last Admin Trade Name Freq PRN Reason Stop Dose Admin Lactated Ringer's 1,000 mls @ 80 mls/hr 07/12/23 00:02 07/12/23 00:15 Lr IV 07/12/23 12:31 80 mls/hr .[id number] PRAKASH Administration Ketorolac Tromethamine 15 mg 07/12/23 00:02 07/12/23 00:42 Ketorolac Tromethamine 15 Mg/Ml Vial IV 07/17/23 00:01 15 mg Q6H PRN Administration Pain- 2nd line Ondansetron HCl 4 mg 07/12/23 00:02 07/12/23 00:35 Ondansetron Inj 2 Mg/Ml 2 Ml Vial IV 08/11/23 00:01 4 mg Q6H PRN Administration Nausea Past Medical History Medical History Hyperlipidemia Gregor's thyroiditis Diverticulosis Osteoporosis Rheumatoid arthritis Chronic sinusitis History of basal cell carcinoma Past Family History Family History Unknown Cancer Crohn's disease Stroke Leukemia Past Surgical History Surgical History S/P total right hip arthroplasty (11/2022) Hx of colonoscopy History of ankle surgery RIGHT Status post right knee replacement History of foot surgery R/L History of dilation and curettage Social History Smoking Status: Never smoker Do You Dip or Chew Tobacco: No Hx Alcohol Use: Yes alcohol intake frequency: holidays/special occasions only Hx Substance Use: No substance use type: does not use Physical Exam Vital Signs Last Vital Signs Temp 98.1 F 07/12/23 07:06 Pulse 70 07/12/23 07:06 Resp 18 07/12/23 07:06 BP 125/72 07/12/23 07:06 Pulse Ox 96 07/12/23 07:06 O2 Del Method Room Air 07/12/23 07:06 Testing Laboratory Results 07/11/23 18:47 07/11/23 18:47 Urine Color Dark Yellow 07/11/23 18:43 Urine Appearance Cloudy (Clear) A 07/11/23 18:43 Urine pH 7.5 (4.5-7.5) 07/11/23 18:43 Ur Specific [place] 1.013 (1.000-1.030) 07/11/23 18:43 Urine Protein Negative (Negative) 07/11/23 18:43 Urine Glucose (UA) Negative (Negative) 07/11/23 18:43 Urine Ketones Negative (Negative) 07/11/23 18:43 Urine Nitrite Positive (Negative) A 07/11/23 18:43 Ur Leukocyte Esterase 3+ (Negative) H 07/11/23 18:43 Urine WBC (Auto) >30 /hpf (0-5) H 07/11/23 18:43 Urine RBC (Auto) 5-10 /hpf (0-4) H 07/11/23 18:43 U Hyaline Cast (Auto) 0 /lpf (0-5) 07/11/23 18:43 U Epithel Cells (Auto) 10-20 /lpf (0-5) H 07/11/23 18:43 Urine Bacteria (Auto) Negative (Negative) 07/11/23 18:43 07/11/23 18:43 Urine Culture - Preliminary Urine,Clean Catch Gram negative bacilli
[2023-07-12] MEDS ORDERED: KETOROLAC 30 MG/ML VIAL ONE (08:28)
--- NOTE | 2023-07-12 08:58 | Post Operative Brief Note ---
PG Immediate Post Op with CF Date of Surgery July 12, 2023 Pre & Post Diagnosis Operation Date: 07/12/23 10:00 Pre-Op Diagnosis: Ureterolithiasis. Post-Op Diagnosis: Ureterolithiasis. I identified the patient and participated in the time-out.: Yes Procedure Operation Date: 07/12/23 10:00 Actual Procedures p Cystoscopy, left retrograde pyelogram, lasering of stone, basket extraction, left ureteroscopy, left ureteral stent insertion(Left) - Morro Escobar MD Surgeon Morro Escobar MD Yard Pilot None Estimated Blood Loss 0 Findings Consistent with Post-Op Diagnosis Specimens Specimen Description: A. Left renal calculus (for chemical analysis) Anesthesia Type MAC Complications none
--- NOTE | 2023-07-12 09:10 | Operative Report ---
PG Post Operative Report Pre & Post Diagnosis Operation Date: 07/12/23 10:00 Pre-Op Diagnosis: Ureterolithiasis. Post-Op Diagnosis: Ureterolithiasis. I identified the patient and participated in the time-out.: Yes Procedure Operation Date: 07/12/23 10:00 Actual Procedures p Cystoscopy, left retrograde pyelogram with radiographic interpretation, lasering of stone, basket extraction, left ureteroscopy, left ureteral stent insertion(Left) - Morro Escobar MD Surgeon Morro Escobar MD Target Network Analyst None Estimated Blood Loss 0 Findings Consistent with Post-Op Diagnosis Large stone at the left ureteral orifice. Unable to get any wire past this. As we do not have interventional radiology and I would need to transfer her, opted to break up the stone with the laser in order to get a stent in p lace. Retrograde showed no extravasation. Stent in appropriate position. Ureter free of stone. Specimens Left ureteral calculus Drains 6 Filipino for 24 cm left ureteral stent Anesthesia Type MAC Complications none Indications 62-year-old female with a large distal left ureteral calculus and urinalysis concerning for infection. Hemodynamically stable and afebrile but opt to go the OR for stent placement. Description of Procedure After informed consent was obtained, the patient was transported to the operative suite. MAC anesthesia was induced. They were placed in dorsal lithotomy position and prepped and draped in sterile fashion. They received preoperative ceftriaxone. An appropriate surgical timeout was performed. A 21 Filipino rigid cystoscope was inserted per urethra into the bladder. I turned my attention left ureteral orifice and there was a very large stone that was and completely obstructing the left ureteral orifice. I attempted multiple times to get a sensor wire by this but was unsuccessful. As we do not have interventional radiology and this would require me to wake her up and transfer her for a nephrostomy tube, I opted to try to break the stone up in order to get a stent in place. I inserted a 360 m thulium laser fiber through the cystoscope and chipped away at the stone. I then swapped out to a semirigid ureteroscope and was able to break the stone up and get a sensor wire in place and confirmed this in the upper pole of the kidney with fluoroscopy. There were several small fragments at the ureteral orifice that I basketed out with a 0 tip Nitinol basket. The ureter was free of any stone. I shot a left retrograde pyelogram through the semirigid ureteroscope which showed no extravasation. Semirigid ureteroscope was removed. I backloaded the cystoscope over the sensor wire and deployed a 6 Filipino by 24 cm left ureteral stent with a good proximal coil in the kidney confirmed fluoroscopically and a good distal coil in the bladder confirmed under direct visualization. Bladder was emptied and stone fragments were sent for analysis. This concluded the end of the case. All counts correct at the end of the case. I was present scrubbed and actively participated for the entirety of the procedure. I spoke to the and explained deviation from planned procedure to avoid a transfer. I attest to the content of the Intraoperative Record and any orders documented therein. Any exceptions are noted below.
--- NOTE | 2023-07-12 09:24 | Anesthesiology Progress Note ---
Date of Service July 12, 2023 Anesthesia Post Procedure Vital Signs Vital Signs: Temp Pulse Pulse Pulse Resp BP BP 07/12/23 09:15 74 14 146/78 H 07/12/23 09:05 97.2 F L 85 14 129/86 07/12/23 07:06 98.1 F 70 18 125/72 07/12/23 00:05 97.9 F 83 18 162/92 H 07/11/23 23:24 07/11/23 23:00 82 14 07/11/23 23:00 146/89 H 07/11/23 23:00 79 18 146/89 H 07/11/23 22:30 144/87 H 07/11/23 22:30 82 18 07/11/23 22:00 154/85 H 07/11/23 22:00 07/11/23 21:30 152/82 H 07/11/23 21:30 07/11/23 21:00 07/11/23 21:00 153/82 H 07/11/23 21:00 80 18 153/82 H 07/11/23 20:30 141/79 H 07/11/23 20:30 141/79 H 07/11/23 20:30 07/11/23 20:11 167/87 H 07/11/23 20:05 07/11/23 19:30 151/84 H 07/11/23 19:01 86 20 165/122 H 07/11/23 19:00 86 07/11/23 18:02 07/11/23 17:59 98.2 F 95 H 22 162/98 H Pulse Ox O2 Del Method O2 Flow Rate 07/12/23 09:15 96 Nasal Cannula 2 07/12/23 09:05 98 Nasal Cannula 4 07/12/23 07:06 96 Room Air 07/12/23 00:05 96 Room Air 07/11/23 23:24 98 Room Air 07/11/23 23:00 95 07/11/23 23:00 07/11/23 23:00 94 Room Air 07/11/23 22:30 07/11/23 22:30 97 07/11/23 22:00 07/11/23 22:00 96 07/11/23 21:30 07/11/23 21:30 97 07/11/23 21:00 91 07/11/23 21:00 07/11/23 21:00 94 Room Air 07/11/23 20:30 07/11/23 20:30 07/11/23 20:30 97 07/11/23 20:11 100 07/11/23 20:05 99 07/11/23 19:30 100 07/11/23 19:01 92 07/11/23 19:00 07/11/23 18:02 99 Room Air 07/11/23 17:59 94 Room Air Pain Intensity Left Lateral Abdomen: Pain Intensity: 0 Transfer of Care Handoff Completed per policy Notes Mental Status: alert / awake / arousable and participated in evaluation Patient Amnestic to Procedure: Yes Nausea / Vomiting: adequately controlled Pain: adequately controlled Airway Patency, RR, SpO2: stable & adequate BP & HR: stable & adequate Hydration State: stable & adequate Anesthetic Complications: no major complications apparent and Pt Satisfied with anesthetic care
--- NOTE | 2023-07-12 09:42 | Fluoroscopy Report ---
FL retrograde includes kub CLINICAL HISTORY: LT CYSTO STENT COMPARISON STUDY: CT of the abdomen and pelvis July 11, 2023. FLUOROSCOPY TIME: 10 seconds. Ka, r: 1.92 mGy FLUOROSCOPIC IMAGES: 4 FINDINGS: Fluoroscopy was provided during cystoscopy, lithotripsy, left retrograde pyelogram and left ureteral stent insertion. Left hydroureteronephrosis is noted. Proximal aspect of the left ureteral stent is within the left renal pelvis. IMPRESSION: Fluoroscopy provided during cystoscopy, lithotripsy, left retrograde pyelogram and left ureteral stent insertion. ACT 112: Negative or not required by law. Electronically signed by: Sha Medina M.D. 07/12/2023 9:40 AM
[2023-07-12] MEDS: ROSUVASTATIN CALCIUM 5 MG TAB PO SCH (11:06)
--- NOTE | 2023-07-12 13:16 | Electrocardiogram Report ---
Test Reason : Blood Pressure : / mmHG Vent. Rate : 074 BPM Atrial Rate : 074 BPM P-R Int : 116 ms QRS Dur : 100 ms QT Int : 440 ms P-R-T Axes : -14 -15 -07 degrees QTc Int : 488 ms Normal sinus rhythm Normal ECG When compared with ECG of 05-JAN-2023 07:15, Nonspecific T wave abnormality now evident in Inferior leads Confirmed by Blue [place]amo ([id number]) on 07/12/2023 1:15:43 PM Referred By: REFERRED SELF Confirmed By:Blue Alamo
[2023-07-12] MEDS ORDERED: cefTRIAXone SODIUM 2,000 MG in DEXTROSE 5 % MINI-B 50 ML IV SCH (21:00)
[2023-07-13] MEDS: ACETAMINOPHEN 325 MG TAB PO PRN ×2 (02:29→08:01)
[2023-07-13] MEDS ORDERED: SODIUM CHLORIDE 0.65% NA SOLN 45 ML (OCEAN) ONE (02:31)
[2023-07-13 07:33] LABS: Basophils # (auto) 0.03 K/uL (0.00-0.20); Basophils % (auto) 0.4 %; Eosinophils # (auto) 0.35 K/uL (0.00-0.50); Eosinophils % (auto) 5.1 %; Hemoglobin 10.1 g/dl (12.0-16.0); Immature Granulocytes # (auto) 0.02 K/uL (0.01-0.20); Immature Granulocytes % (auto) 0.3 %; Lymphocytes # (auto) 1.09 K/uL (1.20-3.40); Lymphocytes % (auto) 15.7 %; Mean Corpuscular Hemoglobin 27.8 pg (25.0-34.0); Mean Corpuscular Hgb Conc 32.6 g/dL (32.0-36.0); Mean Corpuscular Volume 85.4 fL (80.0-100.0); Mean Platelet Volume 9.2 fL (9.4-12.4); Monocytes # (auto) 0.49 K/uL (0.11-0.59); Monocytes % (auto) 7.1 %; Neutrophils # (auto) 4.95 K/uL (1.40-6.50); Neutrophils % (auto) 71.4 %; Platelet Count 340 K/uL (130-400); RDW Coefficient of Variation 13.4 % (11.5-14.5); RDW Standard Deviation 41.9 fL (36.4-46.3); Red Blood Count 3.63 M/uL (4.20-5.40); White Blood Count 6.93 K/ul (4.8-10.8)
[2023-07-13 07:46] LABS: BUN Creatinine Ratio 32.1 (10-20); Calcium 8.6 mg/dl (8.6-10.3); Creatinine Clr Calc Pharmacy 104.9 ml/min; Est GFR (African American) 114.2 ml/min; Est GFR (Non-African American) 98.5 ml/min; Potassium 3.8 mmol/L (3.5-5.1)
[2023-07-13] MEDS: ONDANSETRON INJ 2 MG/ML 2 ML VIAL IV PRN (08:06)
[2023-07-13] MEDS: ROSUVASTATIN CALCIUM 5 MG TAB PO SCH (08:06)
[2023-07-13] MEDS ORDERED: IBUPROFEN 800 MG TAB PO ONE (09:01)
--- NOTE | 2023-07-13 09:51 | Urology Progress Note ---
Date of Service July 13, 2023 Assessment & Plan (1) UTI (urinary tract infection): (2) Ureterolithiasis: Plan: - Pt POD#1 s/p Cystoscopy, left retrograde pyelogram, left ureteroscopy, laser lithotripsy, basket extraction and left ureteral stent placement - Doing well, progressing as expected - Afebrile, lab work reviewed - creatinine 0.56, WBC 6.93 - Prelim UC w/ Klebsiella - Tolerating left ureteral stent with minimal bother - Okay to d/c from perspective when medically stable - Recommend d/c with course of PO antibiotics per culture, Tamsulosin, prn Pyridium and prn oxybutynin for stent management - Expected clinical course reviewed, all questions answered - Her left distal stone was treated, but has remaining renal stones - Discussed follow-up for stent removal vs set up second procedure to address her remaining stones - Will arrange outpatient follow-up with our service to discuss additional stone tx - will sign off Admission and Anticipated Discharge Date Admission Date: July 11, 2023 Subjective Patient seen and examined at bedside this morning, chart reviewed No acute issues overnight Denies flank pain Voiding without difficulty, urine clearing postprocedure Notes some urinary urgency and frequency Denies nausea, vomiting, fever or chills Review of Systems Constitutional: as per Subjective / HPI Gastrointestinal: as per Subjective / HPI Genitourinary: as per Subjective / HPI Physical Exam Physical Exam: General: well-appearing, no acute distress HEENT: Normocephalic, mucous membranes moist Pulmonary: Nonlabored respirations Abdomen: Nondistended Extremities: Moves all 4 spontaneously Neuro: No gross deficits Psych: alert and oriented, normal mood Skin: Warm, dry, no rashes noted Results & Data Vital Signs (Past 12 Hours) Vital Signs Temp Pulse Resp BP Pulse Ox O2 Del Method 07/13/23 07:13 36.2 C L 71 16 139/86 96 Room Air PG Care Time/CCT Total # of Minutes Spent Total Time Spent with Patient: Total time spent is greater than 50% in coordination of care (as documented) at patient's floor/unit and/or counseling patient: Coding Level of Care Code 52420 SUB INP/OBS CARE /25MIN Diagnoses UTI (urinary tract infection) N39.0 Ureterolithiasis N20.1
[2023-07-13] MEDS: KETOROLAC TROMETHAMINE 15 MG/ML VIAL IV PRN (10:43)
--- NOTE | 2023-07-13 11:11 | Discharge Summary ---
Date of Service July 13, 2023 Admission HPI Per Admitting Provider Pt is 62 yo F with PMH RA, HLD presenting for urinary symptoms. Pt reports onset of cloudy urine since early 06/2023. Seen PCP on 06/18 and prescribed 10 day course of cefdinir due to UTI after positive UA. Developed symptoms of fever, chills, urinary frequency increase develop that same night. She did have L flank pain begin after finishing antibiotics. Since 07/06 pt reports increased L flank pain with L back pain, nausea w/ NBNB emesis x2, fever x3 days with Tmax 102.4 F. On 07/08 she experienced increased urinary symptoms including dysuria and frequency. Did see PCP again and had repeat UA but was not prescribed antibiotics yet. Symptoms worsened until today and pt presented for ER evaluation. Pt arrived to ER hemodynamically stable. Initial evaluation- unremarkable CBC, CMP, lactate. UA w/ nitries, LE, WBCs, no bacteria. CTAP demonstrating 8 x 6 mm L ureterovesicular junction calculus w/ moderate-severe L hydronephrosis and perinephric fluid + stranding. ER interventions- morphine 4 mg IV, Zofran 4 mg IV, 1L NSS bolus, Toradol 15 mg IV, ceftriaxone. At present, pt reports no new complaints. Admission Exam Per Admitting Provider General: well-appearing, no acute distress HEENT: PERRL, EOMI, conjunctivae clear without injection, anicteric sclerae, moist mucous membranes, clear oropharynx without exudate or erythema Neck: supple, trachea midline, no thyromegaly, no JVD, no cervical lymphadenopathy CV: RRR, normal S1 and S2, no murmurs Resp: CTAB, no increased work of breathing, no crackles or wheezes Abd: Soft, tender to L flank + L CVA tenderness, nondistended, no guarding or rebound, no hepatosplenomegaly MSK: Normal bulk of all four extremities Neuro: AOx3, no focal motor or sensory deficits Skin: no rashes or lesions, warm and dry Ext: no LE peripheral edema or erythema, capillary refill <2s in all four extremities, 2+ LE peripheral pulses b/l Principal Diagnosis ascending UTI, infected kidney stone Discharge Exam Constitutional: well appearing, no acute distress HEENT: normocephalic, no conjunctival injection CV: regular rhythm, regular rate, no murmur, no LE edema Respiratory: Clear to auscultation bilaterally. No rhonchi, wheezes, or crackles. No increased work of breathing GI: soft, nondistended, positive bowel sounds MSK: no gross deformities noted Skin: warm, dry, no rashes Neuro: alert, oriented, no FND noted Discharge Data Allergies Allergy/AdvReac Type Severity Reaction Status Date / Time Sulfa (Sulfonamide AdvReac Intermediate Nausea Verified 07/11/23 20:57 Antibiotics) Consultations 07/11/23 21:29 ED Decision to Admit Stat 07/12/23 00:02 Consult Urology Routine Procedures Performed Operation Date: 07/12/23 10:00 Actual Procedures s left ureteral stent insertion(Left) - Morro Escobar MD p Cystoscopy, left retrograde pyelogram, lasering of stone, basket extraction, left ureteroscopy,(Left) - Morro Escobar MD Ordered Studies 07/11/23 18:02 CT abd pelvis IV con only Stat IMPRESSION: 1. 8 mm x 6 mm left ureterovesical junction calculus results in moderate to severe left hydroureteronephrosis with delayed nephrogram mild left perinephric fluid and stranding. 2. Bilateral nephrolithiasis. No right ureteral calculi. No right hydronephrosis. 07/12/23 [place] retrograde includes kub Routine IMPRESSION: Fluoroscopy provided during cystoscopy, lithotripsy, left retrograde pyelogram and left ureteral stent insertion. Hospital Course (1) Urinary tract infection: (2) Obstructive uropathy: (3) Hyperlipidemia: (4) Rheumatoid arthritis: Plan Pt is 62yo female with past medical history of RA and HLD presenting for urinary symptoms. Ascending urinary tract infection - ascending urinary tract infection/pyelonephritis without sepsis upon admission, pt hemodynamically stable and afebrile throughout hospitalization - urine cx growing gram pansensitive Klebsiella - s/p ceftriaxone x1; discharged with cefdinir 300 mg BID x7 days Obstructive uropathy -8 x 6 mm left ureterovesical junction stone with secondary hydronephrosis - urology placed stent and completed lithotripsy 07/12 - ABX as above, discharged with tamsulosin 0.4 mg nightly, oxybutynin 5 mg PRN for bladder spasm Hyperlipidemia - continue statin Rheumatoid arthritis - continue Xeljanz after ABX course completed FEN: Regular diet Code: Full DVT prophylaxis: SCDs Dispo: home with urology f/u Total Time Total Time Spent Total Time Spent (In Minutes): <30 Discharge Plan Discharge Items Patient Disposition: Home - Self-Care Reason For Visit: UTI, CALCULUS Discharge Diagnosis: infected left nephrolithiasis, UTI Activity: Per Instructions section Non-emergency contact: Primary Care Provider Call non-emergency contact if: you have any medication questions, your symptoms worsen and your temperature is above 101 Follow-up/Referrals: Ericka Medina MD [Primary Care Provider] - 07/20/23 1:00 pm (APPOINTMENT WITH DR CASTRO) Morro Escobar MD [Physician] - 07/14/23 2:15 pm (f/u left ureteral stent placement) Diet: Regular Addtl Attending Provider Instructions: You were admitted to the hospital for pain and infection associated with a left- sided kidney stone. You were treated with antibiotics and surgical intervention. With this surgical intervention, the urologist was able to use a laser to break up the stone and place a stent (a device to keep your ureter open). You will need outpatient follow up with the urologist to discuss stent removal and further treatment for the other stones. A discharge summary will be sent to your primary care physician to ensure continuity of care. Please bring this discharge summary with you to your next office appointment so that your provider can review it at that time. Medications: Your medication list has been reviewed and reconciled upon discharge to ensure accuracy and continuity of care. An updated list of all your medications is included with your hospital discharge paperwork. Please review this list closely and make note of any changes to your medications. - You will be discharged with the antibiotic cefdinir. This will be 300 mg twice per day for 7 days. This is to treat the remaining bacterial infection in your urine. - You should take tamsulosin (Flomax) 0.4 mg every day. This should help facilitate passage of your other stones. - You have also been prescribed oxybutynin 5 mg twice per day as needed for bladder pain/spasms. - You may also take pyridium (Azo) over the counter as needed for urinary tract infection symptoms (urgency, burning, etc). Follow up appointments: - Make a follow up appointment with your PCP within the next week. It is very important that you follow up with them shortly after discharge from the hospital. - You will need to follow up with urology within the next week to discuss ureter al stent removal and further management of your kidney stones. - Keep all of your follow up appointments as already scheduled. If you cannot make an appointment, notify your provider. CONTACT YOUR PRIMARY CARE PROVIDER if you experience any of the following: - Difficulty following your treatment plan - Difficulty taking any of your medications CALL 911 OR GO TO THE EMERGENCY DEPARTMENT if you experience any of the following: - Sudden, severe abdominal pain or nausea/vomiting - Severe chest pain or chest pain that radiates to your jaw or arm - Sudden, severe shortness of breath or difficulty breathing Pending Studies at Discharge: Yes (stone analysis) Stand-Alone Forms: My [employer], Smoking Cessation Medications and DC Order Prescriptions: New cefdinir 300 mg capsule 300 mg PO BID 7 Days Qty: 14 0RF oxybutynin chloride 5 mg tablet 5 mg PO BID PRN (Reason: bladder spasms) Qty: 20 0RF tamsulosin 0.4 mg capsule 0.4 mg PO HS Qty: 30 0RF Continued azelastine 137 mcg (0.1 %) aerosol,spray 1 spray intranasal DAILY PRN (Reason: Allergy Symptoms) Qty: 90 3RF Rx Instructions: administer into each nostril estradiol 0.01 % (0.1 mg/gram) cream See Rx Instructions .ROUTE .COMPLEX Qty: 42.5 1RF Rx Instructions: Apply pea sized amount to urethra and vaginal opening once daily; rosuvastatin 5 mg tablet 5 mg PO DAILY Qty: 90 0RF Rx Instructions: ON HOLD sumatriptan succinate 50 mg tablet See Rx Instructions .ROUTE .COMPLEX PRN (Reason: Migraine Headache) Qty: 27 3RF Rx Instructions: Take 1 tablet for headache, repeat in 1 hour if needed (No more than 2 tablets per day); Xeljanz XR 11 mg tablet extended release 24 hr 11 mg PO DAILY cyclobenzaprine 5 mg tablet 5 - 10 mg PO HS PRN (Reason: muscle spasm) Rx Instructions: 1-2 tabs orally at bedtime PRN; meloxicam 15 mg Tablet 15 mg PO DAILY acetaminophen [Tylenol Extra Strength] 500 mg tablet 1,000 mg PO TID PRN (Reason: Pain) Rx Instructions: Take 3 times per day to lessen pain. multivitamin Tablet 1 tab PO DAILY mometasone 50 mcg/actuation spray,non-aerosol 2 spray intranasal DAILY PRN (Reason: Congestion) Rx Instructions: administer into each nostril Discharge Orders: Discharge Order (Routine); Ordered 07/13/23 Ordered By: Daysi Cooley Admission Data Admit Date/Time: 07/11/23 22:07 Attending Provider: Rudolph Palma Admit Provider: Lazaro Mary Primary Care Provider: Ericka Medina Other Providers: Vivian Lawrence; Trev Dalal; Gen Delgado; Edgard Carbajal; Lia Ann; Scot Diehl; Soni Deutsch; Caroline Ramos; Harman Schultz; Leatha Peoples; Maury Birmingham; Morro Escobar; Edgard Hayden Other Interventions: Discharge Summary Assessment (RN) Last Done: 07/13/23 12:40 Supervising Physician Co-Signing Physician Notes I personally examined the patient and verified all macias points of history and exam, discussed case, and agree with decision making with Dr Cooley Feeling better and would like to go home. No new complaints. Vitals noted, in general she is awake and alert pleasant no distress. HEENT normocephalic atraumatic mucous membranes moist. Breathing unlabored no accessory muscle use good effort. Skin shows no rashes no pallor or icterus. Neuro without focal deficits. Urinary tract infection in the setting of obstructive uropathy - Status post cystoscopy, laser, stenting. Stable for home on p.o. antibiotics. Outpatient urology follow-up. Otherwise as above. Resident Activity Tracking Resident Involvement: Resident Care Provided Care Provided: Adult Hospital Medicine
[2023-07-18 16:27] LABS: Component 2 DNR
== END 2023-07-13 13:20 | disposition home or self-care (01) | DRG 690 ==
LOC: ED 17:40 → SUATTDRO 22:07 → 3W 22:07

== ENCOUNTER 2024-02-25 15:31 | Inpatient (IN) ==
--- NOTE | 2024-02-25 15:51 | Emergency Department Note ---
History of Present Illness General Chief complaint: Referred by Doctor Stated complaint: KIDNEY STONE, FEVER, CHILLS Time Seen by Provider: 02/25/24 15:39 History of Present Illness Maximum Pain Intensity: 6 This is a 63-year-old female that presents to the emergency department via private vehicle accompanied by with complaints of "fever, right side pain, kidney stone". The patient notes that this past Thursday evening she began with discomfort in the right lower quadrant area that she attributes to be similar to previous kidney stones as well as a fever. Tmax 102 F. She states that as an outpatient she has had some studies to include a CT scan that showed an obstructing stone. She notes associated nausea. No chest pain, shortness of breath or vomiting. at bedside notes that he tried to bring her earlier but notes that she had a hard time getting out of bed/home as she was quite chilled and shaking. Home Medications Medication Instructions Recorded Confirmed Type acetaminophen 500 mg tablet 500 mg PO DAILY PRN Pain 01/05/23 02/25/24 History (Tylenol Extra Strength) meloxicam 15 mg tablet 15 mg PO QAM 01/05/23 02/25/24 History mometasone 50 mcg/actuation nasal 2 spray intranasal DIRECTED PRN 07/11/23 02/25/24 History spray Congestion multivitamin 1 tab PO QPM 07/11/23 02/25/24 History azelastine 137 mcg (0.1 %) nasal 1 spray intranasal UD PRN Allergy 07/17/23 02/25/24 History spray Symptoms polyethylene glycol 3350 17 gram 17 g PO DIRECTED PRN 07/17/23 02/25/24 History oral powder packet (Miralax) Constipation sumatriptan succinate 50 mg tablet 50 mg PO DIRECTED PRN Migraine 07/17/23 02/25/24 History Headache rosuvastatin 5 mg tablet 5 mg PO DAILY #90 tabs 11/23/23 02/25/24 Rx alendronate 70 mg tablet 70 mg PO WK 02/25/24 02/25/24 History amoxicillin 500 mg tablet 2,000 mg PO ONCE PRN Other 02/25/24 02/25/24 History estradiol 0.01% (0.1 mg/gram) 1 applic vaginal DIRECTED PRN 02/25/24 02/25/24 History vaginal cream Other methylprednisolone 4 mg tablets in 4 mg PO DIRECTED 02/25/24 02/25/24 History a dose pack Allergies Allergy/AdvReac Type Severity Reaction Status Date / Time Sulfa (Sulfonamide AdvReac Unknown Nausea Verified 09/23/23 14:10 Antibiotics) Past Med/Surg History Problem List Sepsis Sepsis as sequela of procedure Hydronephrosis, right Calculus of proximal right ureter Sciatica Left knee DJD History of total right knee replacement History of total right hip replacement Hydronephrosis, left UTI (urinary tract infection) (Acute) Ureterolithiasis Medical History Difficult intravenous access trouble seeing veins. No hx difficult sticks. History of COVID-19 2 yr ago. History of gallstones Nausea and vomiting after administration of anesthetic agent hx patch and effective. History of recent hospitalization for kidney stones 07/11-07/13/23. Constipation UTI (urinary tract infection) current abx for. pt is feeling better. Kidney stones Hyperlipidemia Osteoporosis Rheumatoid arthritis Gregor's thyroiditis Diverticulosis Chronic sinusitis History of basal cell carcinoma Surgical History S/P total right hip arthroplasty (11/2022) Hx of colonoscopy History of ankle surgery RIGHT Status post right knee replacement History of foot surgery R/L History of dilation and curettage Family History Unknown Cancer Crohn's disease Stroke Leukemia Social History Smoking Status: Never smoker Second Hand Exposure: No; Do You Dip or Chew Tobacco: No; Hx Alcohol Use: Yes Hx Substance Use: No Preferred Language: Maori Communication Ability: Effective 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 Required: No Beliefs That Will Affect Care: None marital status: Current Living Situation: Spouse Feels Safe at Home: Yes Assistive Devices: Glasses Review of Systems A total of 10 systems reviewed and were otherwise negative Physical Exam Vital Signs Vital Signs - 24 hr 02/25/24 15:31 02/25/24 15:54 02/25/24 15:58 Temperature 37.1 C Temperature Source Temporal Artery Scan Pulse Rate 134 H 126 H 122 H Pulse Rate from SpO2 Sensor Respiratory Rate 20 18 Respiratory Effort / Characteristics Non-Labored Spontaneous Respiratory Depth Normal Blood Pressure 143/84 H Blood Pressure Mean 103 Pulse Oximetry 94 Oxygen Delivery Method Room Air Sepsis Recent Fever Within 48 Hours No Sepsis New/Unexplained Change in Mental Status No Sepsis Action Taken by Nursing No Action Required 02/25/24 16:00 02/25/24 16:06 02/25/24 16:07 Temperature Temperature Source Pulse Rate 123 H Pulse Rate from SpO2 Sensor Respiratory Rate 19 Respiratory Effort / Characteristics Respiratory Depth Blood Pressure 142/74 H Blood Pressure Mean 94 Pulse Oximetry 94 Oxygen Delivery Method Room Air Sepsis Recent Fever Within 48 Hours Sepsis New/Unexplained Change in Mental Status Sepsis Action Taken by Nursing 02/25/24 16:15 02/25/24 16:15 02/25/24 16:30 Temperature Temperature Source Pulse Rate 124 H 120 H Pulse Rate from SpO2 Sensor 123 H Respiratory Rate 16 18 Respiratory Effort / Characteristics Respiratory Depth Blood Pressure 149/76 H Blood Pressure Mean 100 Pulse Oximetry 93 Oxygen Delivery Method Sepsis Recent Fever Within 48 Hours Sepsis New/Unexplained Change in Mental Status Sepsis Action Taken by Nursing 02/25/24 16:42 02/25/24 16:43 Temperature Temperature Source Pulse Rate 122 H Pulse Rate from SpO2 Sensor 122 H Respiratory Rate 18 Respiratory Effort / Characteristics Respiratory Depth Blood Pressure 162/75 H Blood Pressure Mean 116 Pulse Oximetry 93 Oxygen Delivery Method Room Air Sepsis Recent Fever Within 48 Hours Sepsis New/Unexplained Change in Mental Status Sepsis Action Taken by Nursing VITAL SIGNS - Vital signs and nursing notes were reviewed. Hypertensive, tachycardic, otherwise stable. GENERAL -63-year-old female appearing her stated age who is in no acute distress but appears dry, tired and is lying supine on the examination bed with chills. Communicates well with provider and answers questions appropriately. SKIN - Without rashes. No meningeal or petechial rash. HEAD - NC/AT. EYES - Sclera anicteric. MOUTH/OROPHARYNX - Without perioral cyanosis. Dry oral mucosa. NECK - Neck with FROM. No nuchal rigidity. LUNGS - Chest wall symmetric without accessory muscle use, intercostals retractions, or central cyanosis. Normal vesicular breath sounds CTA B/L. No wheezes, rales, or rhonchi appreciated. CARDIAC -tachycardic with regular rate ABDOMEN - Abdominal contour normal without pulsations or visible masses. BS normoactive all four quadrants. No tenderness, palpable masses, hepatosplenomegaly, or ascites noted. EXTREMITIES - No clubbing or peripheral cyanosis. NEUROLOGIC - Cranial nerves grossly intact PSYCH -alert, oriented and pleasant on exam Course Administered Medications Discontinued Medications Sodium Chloride (Nss) 1,000 mls @ 999 mls/hr IV .Q1H1M PRAKASH Stop: 02/25/24 17:00 Last Admin: 02/25/24 16:35 Dose: 999 mls/hr Documented By: TWIN Sodium Chloride (Nss) 500 mls @ 999 mls/hr IV .Q31M ONE Stop: 02/25/24 16:19 Last Admin: 02/25/24 16:35 Dose: 999 mls/hr Documented By: TWIN Cefepime HCl (Maxipime) 2,000 mg in 20 mls @ 5 mls/min IV NOW STA; Protocol Stop: 02/25/24 15:55 Last Admin: 02/25/24 16:38 Dose: 5 mls/min Documented By: TWIN Scopolamine (Scopolamine 1 Mg/72 Hr Tdsy Patch) 1 patch TD ONE ONE Stop: 02/25/24 17:11 Last Admin: 02/25/24 18:08 Dose: 1 patch Documented By: [facility] [place] Decision Making Laboratory Data 02/25/24 16:34 02/25/24 16:34 Lab Results 02/25/24 02/25/24 Range/Units 16:34 16:45 WBC 12.69 H (4.8-10.8) K/ul RBC 3.81 L (4.20-5.40) M/uL Hgb 10.8 L (12.0-16.0) g/dl Hct 32.5 L (37.0-47.0) % MCV 85.3 (80.0-100.0) fL MCH 28.3 (25.0-34.0) pg MCHC 33.2 (32.0-36.0) g/dL RDW Std Deviation 42.8 (36.4-46.3) fL RDW Coeff of Kaushik 13.6 (11.5-14.5) % Plt Count 210 (130-400) K/uL MPV 9.5 (9.4-12.4) fL Immature Gran % (Auto) 0.6 % Neut % (Auto) 87.6 % Lymph % (Auto) 2.8 % Mcleod % (Auto) 8.6 % Eos % (Auto) 0.2 % Baso % (Auto) 0.2 % Neut # (Auto) 11.12 H (1.40-6.50) K/uL Lymph # (Auto) 0.35 L (1.20-3.40) K/uL Mcleod # (Auto) 1.09 H (0.11-0.59) K/uL Eos # (Auto) 0.02 (0.00-0.50) K/uL Baso # (Auto) 0.03 (0.00-0.20) K/uL Immature Gran # (Auto) 0.08 (0.01-0.20) K/uL Sodium 135 L (136-145) mmol/L Potassium 3.3 L (3.5-5.1) mmol/L Chloride 101 (98-107) mmol/L Carbon Dioxide 24 (21-32) mmol/L Anion Gap 10 (3-11) BUN 14 (6-23) mg/dl Creatinine 0.77 (0.6-1.2) mg/dl Est Cr Clr Drug Dosing 76.9 ml/min Est GFR ( Amer) 93.9 ml/min Est GFR (Non-Af Amer) 81.0 ml/min BUN/Creatinine Ratio 18.2 (10-20) Glucose 147 H (70-99(Fasting)) mg/dl Lactate 1.1 (0.4-2.0) mmol/L Calcium 8.4 L (8.6-10.3) mg/dl Total Bilirubin 0.6 (0.2-1.0) mg/dl AST 20 (13-39) U/L ALT 17 (7-52) U/L Alkaline Phosphatase 73 (34-104) U/L Total Protein 6.8 (6.0-8.3) gm/dl Albumin 3.3 L (3.4-5.0) gm/dl Globulin 3.5 (2.5-4.0) gm/dl Albumin/Globulin Ratio 0.9 (0.9-2) Procalcitonin 0.61 H (0-0.5) ng/ml Urine Color Dark Yellow Urine Appearance Turbid A (Clear) Urine pH 5.5 (4.5-7.5) Ur Specific [place] 1.023 (1.000-1.030) Urine Protein 2+ H (Negative) Urine Glucose (UA) Negative (Negative) Urine Ketones 2+ H (Negative) Urine Blood 2+ H (Negative) Urine Nitrite Negative (Negative) Urine Bilirubin Negative (Negative) Urine Urobilinogen Negative (Negative) Ur Leukocyte Esterase 2+ H (Negative) Urine WBC (Auto) >50 H (0-5) /hpf Urine RBC (Auto) 6-10 H (0-2) /hpf U Hyaline Cast (Auto) 0-2 (0-2) /lpf U Epithel Cells (Auto) 3-5 H (0-2) /hpf Urine Bacteria (Auto) None Seen (None Seen) Imaging Data Radiologist's Impression: Chest X-Ray 02/25/24 15:49 SINGLE VIEW CHEST CLINICAL HISTORY: Fever. Sepsis FINDINGS: An AP, portable, upright chest radiograph is compared to study dated 11/06/2022 and correlated with chest CT dated 01/05/2023. The heart is enlarged. The pulmonary vasculature is noncongested. There is mild bibasilar atelectasis. The lungs and pleural spaces are otherwise clear. No pneumothorax is seen. The skeletal structures are osteopenic. The bony thorax is grossly intact. IMPRESSION: Mild cardiomegaly with no active disease in the chest. ACT 112: Negative or not required by law. Electronically signed by: Richard Alaniz M.D. 02/25/2024 4:13 PM MDM Narrative Patient was seen and evaluated as above in room B09. Review was performed of triage nursing notes and vital signs. I did review pertinent previous visits and patient history. After obtaining a thorough history and physical examination the above work up was performed. Patient presents to us today for assessment of right-sided pain in the abdomen with subjective fever at home and is tachycardic on arrival. She appears ill and clinically dry. Concern is for sepsis at this time in the setting of kidney stone. I did review the patient's CT scan of the abdomen/pelvis without contrast that was performed yesterday. This revealed "11 mm obstructing calculus in the right proximal ureter" this causes "moderate to severe right-sided hydronephrosis". Options of care were discussed with the patient. IV access was established. Labs were drawn. I did immediately discuss this with urology that came to evaluate the patient and plan is intervention in the operating room. 30/kg fluids per ideal body weight as well as empiric IV antibiotics for cefepime was ordered. Patient does not have any pain at the immediate time in the abdomen. The metabolic panel does reveal no evidence of kidney or liver failure. Hyperglycemia 147. Mild hyponatremia and hypokalemia. Procalcitonin elevated at 0.61. Urinalysis reveals a component of contamination noting epithelial cells but also a large amount of white blood cells. No bacteria seen. Patient taken to the operative suite for further evaluation and management. Case also discussed with the hospitalist service. Please refer to further documentation regarding her stay. GCS: 15 In the evaluation and treatment of this patient the following differential diagnoses were entertained: UTI, pyelonephritis, infected obstructing kidney stone, diverticulitis, acute abdomen, viral illness, among others. EKG reveals per my interpretation sinus tachycardia at a rate of 125 bpm. QTc 447. QRS 94. There is no ST elevation. Impression & Plan Hydronephrosis, right, Calculus of proximal right ureter, Sepsis Discharge Plan Visit Data Chief Complaint: Referred by Doctor Stated Complaint: KIDNEY STONE, FEVER, CHILLS ED Provider: Bharat Duran ED Midlevel Provider: Kalyan Henry Discharge Problem: Hydronephrosis, right, Calculus of proximal right ureter, Sepsis Patient Disposition: Admitted As Inpatient Condition: Good Discharge Instructions Interventions: ED Discharge Assessment Last Done: 02/25/24 16:53
--- NOTE | 2024-02-25 16:15 | XRay Report ---
SINGLE VIEW CHEST CLINICAL HISTORY: Fever. Sepsis FINDINGS: An AP, portable, upright chest radiograph is compared to study dated 11/06/2022 and correlat ed with chest CT dated 01/05/2023. The heart is enlarged. The pulmonary vasculature is noncongested. T here is mild bibasilar atelectasis. The lungs and pleural spaces are otherwise clear. No pneumothorax is seen. The skeletal structures are osteopenic. The bony thorax is grossly intact. IMPRESSION: Mild cardiomegaly with no active disease in the chest. ACT 112: Negative or not required by law. Electronically signed by: Richard Alaniz M.D. 02/25/2024 4:13 PM
--- NOTE | 2024-02-25 16:22 | Urology Consultation ---
Date of Consultation February 25, 2024 Assessment & Plan (1) Calculus of proximal right ureter: (2) Hydronephrosis, right: 63-year-old female presenting with an obstructing right proximal ureteral stone with hydronephrosis and suspicion of UTI/sepsis. She is currently afebrile, tachycardic Tmax at home ~102 CT imaging reviewed and discussedan obstructing 11 mm right proximal ureteral stone with hydronephrosis Recommend obtain lab work, blood cultures, UA and urine culture Recommend admit to hospital medicine service Recommend emergent right ureteral stent placement today given concern for UTI/sepsis in context of obstructing stoneshe is agreeable Proceed to OR for cystoscopy and right ureteral stent placement today Keep NPO for procedure Recommend start broad-spectrum antibiotics after cultures are obtained Continue supportive care and medical management per hospital medicine service See attending note for further details of plan of care Attending note: Patient independently assessed, examined, interviewed, and evaluated. Patient is acutely ill with likely early sepsis concerning for obstructing stone with a large right ureteral stone causing considerable hydronephrosis. Dealing with tachycardia and hypertension. Patient's labs and vitals were all reviewed. White count is elevated 12.69. Creatinine 0.56. Hemoglobin was 10.8. Agree with note as above. Patient's vitals and labs were all reviewed. Pertinent values in the HPI and plan section. Imaging was reviewed interpreted by myself. Agree with read. Vitals were reviewed. Patient has been febrile at home. Currently is afebrile but does have significant tachycardia with rigors and chills. Discussed findings extensively with patient and family. Reviewed with nurse practitioner as well as consulting physicians/team. Patient's complicated medical and surgical history was reviewed and summarized above. Patient's surgical, medical, social, and family history were all reviewed with pertinent values as above. Discussed patient's current diagnosis as well as concerns and issues. Reviewed different options moving forward. Discussed potential risks and benefits as well as possible options and concerns. Reviewed potential surgical options and interventions. Discussed potential issues and concerns related to intervention. Risk and benefits were discussed extensively with patient and any available family. Discussed potential risks related to anesthesia. Discussed risks of bleeding infection and injury. Extensively reviewed options for observation versus intervention. Discussed concerns with worsening septic issues discussed concerns related to developing pyelonephritis and worsening issues including bacteremia. Reviewed extensively risk and benefits of procedure discussed potential for bleeding and infection. Reviewed extensively patient's prior medical and surgical history. All imaging has been reviewed interpreted by myself obstructing stone is seen on imaging on the right. Reviewed extensively options moving forward. Risks and benefits discussed at length for procedure. These include bleeding, infection, injury to surrounding tissues or organs, and risks associated with anesthesia. Patient states understanding and agrees to proceed. Will sign consent and proceed with emergent/urgent intervention. Plan for cystoscopy with right stent placement History of Present Illness History of Present Illness This is a 63-year-old female with past medical history of kidney stones who developed right flank pain 6 days ago and underwent [facility] imaging as an outpatient which showed a 9 mm calcification at the right lower pole or proximal right ureter. She underwent further imaging with CT abdomen and pelvis on 02/24/2024 which demonstrated an obstructing 11 mm calculus in the right proximal ureter causing moderate to severe right hydronephrosis; numerous additional bilateral nonobstructing renal calculi. She was referred to the emergency department today due to fever and chills at home. On arrival to ED, she was afebrile, tachycardic. No lab work or urine studies done at time of my visit. Urine culture on 02/21 showed more 3 types of organisms present, all high counts. Patient seen and examined at bedside. present. She is awake and resting in litter. She reports ongoing right flank pain. She has had fever and rigors at home over the past 2 days. Tmax at home ~102. She has been taking Tylenol at home. She is voiding spontaneously, notes some discomfort with voiding. Reports some nausea and low appetite. She did have a Jell-O earlier today and a popsicle about 1 hour prior to arrival. Allergies Allergy/AdvReac Type Severity Reaction Status Date / Time Sulfa (Sulfonamide AdvReac Unknown Nausea Verified 09/23/23 14:10 Antibiotics) Home Medications Medication Instructions Recorded Confirmed Type acetaminophen 500 mg tablet 500 mg PO DAILY PRN Pain 01/05/23 02/25/24 History (Tylenol Extra Strength) meloxicam 15 mg tablet 15 mg PO QAM 01/05/23 02/25/24 History mometasone 50 mcg/actuation nasal 2 spray intranasal DIRECTED PRN 07/11/23 02/25/24 History spray Congestion multivitamin 1 tab PO QPM 07/11/23 02/25/24 History azelastine 137 mcg (0.1 %) nasal 1 spray intranasal UD PRN Allergy 07/17/23 02/25/24 History spray Symptoms polyethylene glycol 3350 17 gram 17 g PO DIRECTED PRN 07/17/23 02/25/24 History oral powder packet (Miralax) Constipation sumatriptan succinate 50 mg tablet 50 mg PO DIRECTED PRN Migraine 07/17/23 02/25/24 History Headache rosuvastatin 5 mg tablet 5 mg PO DAILY #90 tabs 11/23/23 02/25/24 Rx alendronate 70 mg tablet 70 mg PO WK 02/25/24 02/25/24 History amoxicillin 500 mg tablet 2,000 mg PO ONCE PRN Other 02/25/24 02/25/24 History estradiol 0.01% (0.1 mg/gram) 1 applic vaginal DIRECTED PRN 02/25/24 02/25/24 History vaginal cream Other methylprednisolone 4 mg tablets in 4 mg PO DIRECTED 02/25/24 02/25/24 History a dose pack Patient History Medical History Difficult intravenous access trouble seeing veins. No hx difficult sticks. History of COVID-19 2 yr ago. History of gallstones Nausea and vomiting after administration of anesthetic agent hx patch and effective. History of recent hospitalization for kidney stones 07/11-07/13/23. Constipation UTI (urinary tract infection) current abx for. pt is feeling better. Kidney stones Hyperlipidemia Osteoporosis Rheumatoid arthritis Gregor's thyroiditis Diverticulosis Chronic sinusitis History of basal cell carcinoma Surgical History S/P total right hip arthroplasty (11/2022) Hx of colonoscopy History of ankle surgery RIGHT Status post right knee replacement History of foot surgery R/L History of dilation and curettage Family History Unknown Cancer Crohn's disease Stroke Leukemia Social History Smoking Status: Never smoker Second Hand Exposure: No; Do You Dip or Chew Tobacco: No; Hx Alcohol Use: Yes Hx Substance Use: No Preferred Language: Sinhala Communication Ability: Effective Lunch Wagon Operator Required: No Beliefs That Will Affect Care: None marital status: Current Living Situation: Spouse Feels Safe at Home: Yes Assistive Devices: Glasses Review of Systems Review of Systems: All systems reviewed & are unremarkable except as noted in HPI & below Physical Exam Constitutional: + ill appearing; no acute distress Respiratory: normal respiratory effort; no respiratory distress and no labored breathing Cardiovascular: Rate/Rhythm: + tachycardic Gastrointestinal (Abdomen): Inspection/Auscultation: abdomen normal to inspection; abdomen not distended Musculoskeletal: Head/Neck/Chest: normocephalic Neurologic: moves all extremities and awake Psychiatric: Orientation: alert and oriented x 3 Results & Data Vital Signs (Past 12 Hours) Vital Signs Temp Pulse Resp BP Pulse Ox O2 Del Method 02/25/24 16:06 94 Room Air 02/25/24 15:58 122 H 02/25/24 15:31 37.1 C 134 H 20 143/84 H 94 Room Air PG Care Time/CCT Total # of Minutes Spent Total Time Spent with Patient: Total time spent is greater than 50% in coordination of care (as documented) at patient's floor/unit and/or counseling patient: Coding Level of Care Code 32205 INT INP/OBS CARE 2/55MIN Diagnoses Calculus of proximal right ureter N20.1 Hydronephrosis, right N13.30
[2024-02-25] MEDS: SODIUM CHLORIDE 0.9% 500 ML IV ONE (16:35)
[2024-02-25] MEDS: SODIUM CHLORIDE 0.9% 1,000 ML IV SCH (16:35)
[2024-02-25] MEDS: CEFEPIME 2,000 MG/20 ML VIAL IV STA (16:38)
[2024-02-25 16:48] LABS: Basophils # (auto) 0.03 K/uL (0.00-0.20); Basophils % (auto) 0.2 %; Eosinophils # (auto) 0.02 K/uL (0.00-0.50); Eosinophils % (auto) 0.2 %; Hematocrit (blood only) 32.5 % (37.0-47.0); Hemoglobin 10.8 g/dl (12.0-16.0); Immature Granulocytes # (auto) 0.08 K/uL (0.01-0.20); Immature Granulocytes % (auto) 0.6 %; Lymphocytes # (auto) 0.35 K/uL (1.20-3.40); Lymphocytes % (auto) 2.8 %; Mean Corpuscular Hemoglobin 28.3 pg (25.0-34.0); Mean Corpuscular Hgb Conc 33.2 g/dL (32.0-36.0); Mean Corpuscular Volume 85.3 fL (80.0-100.0); Mean Platelet Volume 9.5 fL (9.4-12.4); Monocytes # (auto) 1.09 K/uL (0.11-0.59); Monocytes % (auto) 8.6 %; Neutrophils # (auto) 11.12 K/uL (1.40-6.50); Neutrophils % (auto) 87.6 %; Platelet Count 210 K/uL (130-400); RDW Coefficient of Variation 13.6 % (11.5-14.5); RDW Standard Deviation 42.8 fL (36.4-46.3); Red Blood Count 3.81 M/uL (4.20-5.40); White Blood Count 12.69 K/ul (4.8-10.8)
--- NOTE | 2024-02-25 16:49 | Anesthesiology Consultation ---
Date of Service February 25, 2024 Assessment & Plan ASA ASA3 Proposed Anesthesia Anesthesia Type: General Risk / Benefits Reviewed With: PT / POA / Parent / Guardian, Accepts Plan and Informed Consent Obtained History Surgery Operation Date: 02/25/24 13:00 Proposed Procedures p Cystoscopy, Right Ureteral Stent Placement - Scot Diehl, DO Height/Weight Height: 5 ft 2 in Weight: 92 kg Allergies Allergy/AdvReac Type Severity Reaction Status Date / Time Sulfa (Sulfonamide AdvReac Unknown Nausea Verified 09/23/23 14:10 Antibiotics) Medications Home Medications Medication Instructions Recorded Confirmed Last Taken acetaminophen 500 mg tablet 500 mg PO DAILY PRN Pain 01/05/23 02/25/24 07/23/23 (Tylenol Extra Strength) meloxicam 15 mg tablet 15 mg PO QAM 01/05/23 02/25/24 07/23/23 mometasone 50 mcg/actuation nasal 2 spray intranasal DIRECTED PRN 07/11/23 02/25/24 07/11/23 spray Congestion multivitamin 1 tab PO QPM 07/11/23 02/25/24 07/23/23 azelastine 137 mcg (0.1 %) nasal 1 spray intranasal UD PRN Allergy 07/17/23 02/25/24 Unknown spray Symptoms polyethylene glycol 3350 17 gram 17 g PO DIRECTED PRN 07/17/23 02/25/24 Unknown oral powder packet (Miralax) Constipation sumatriptan succinate 50 mg tablet 50 mg PO DIRECTED PRN Migraine 07/17/23 02/25/24 Unknown Headache rosuvastatin 5 mg tablet 5 mg PO DAILY #90 tabs 11/23/23 02/25/24 Unknown alendronate 70 mg tablet 70 mg PO WK 02/25/24 02/25/24 Unknown amoxicillin 500 mg tablet 2,000 mg PO ONCE PRN Other 02/25/24 02/25/24 Unknown estradiol 0.01% (0.1 mg/gram) 1 applic vaginal DIRECTED PRN 02/25/24 02/25/24 Unknown vaginal cream Other methylprednisolone 4 mg tablets in 4 mg PO DIRECTED 02/25/24 02/25/24 Unknown a dose pack Active Medications Generic Name Dose Route Start Last Admin Trade Name Freq PRN Reason Stop Dose Admin Sodium Chloride 1,000 mls @ 999 mls/hr 02/25/24 16:00 02/25/24 16:35 Nss IV 02/25/24 17:00 999 mls/hr .Q1H1M PRAKASH Administration NPO Date Last Intake of Fluids: 02/25/24 Time Last Intake of Fluids: 00:00 Date Last Intake of Solids: 02/25/24 Time Last Intake of Solids: 00:00 Past Medical History Medical History Difficult intravenous access trouble seeing veins. No hx difficult sticks. History of COVID-19 2 yr ago. History of gallstones Nausea and vomiting after administration of anesthetic agent hx patch and effective. History of recent hospitalization for kidney stones 07/11-07/13/23. Constipation UTI (urinary tract infection) current abx for. pt is feeling better. Kidney stones Hyperlipidemia Osteoporosis Rheumatoid arthritis Gregor's thyroiditis Diverticulosis Chronic sinusitis History of basal cell carcinoma Exercise / Class Metabolic Activity II 4-5 Yardwork/Stairs/Walk up hill Past Family History Family History Unknown Cancer Crohn's disease Stroke Leukemia Past Surgical History Surgical History S/P total right hip arthroplasty (11/2022) Hx of colonoscopy History of ankle surgery RIGHT Status post right knee replacement History of foot surgery R/L History of dilation and curettage Past Anesthesia History No Hx of Anesthesia Complications and No Family Hx of Anesthesia Complications History of PONV No Hx of PONV and No Hx of Motion Sickness Social History Smoking Status: Never smoker Do You Dip or Chew Tobacco: No Hx Alcohol Use: Yes alcohol intake frequency: holidays/special occasions only Hx Substance Use: No substance use type: does not use Review of Systems denies fever/cough/ colds/ chest pain/ SOB/ SHEY denies SHEY Physical Exam Vital Signs Last Vital Signs Temp 37.1 C 02/25/24 15:31 Pulse 122 H 02/25/24 16:42 Resp 18 02/25/24 16:42 BP 162/75 H 02/25/24 16:43 Pulse Ox 93 02/25/24 16:42 O2 Del Method Room Air 02/25/24 16:42 ENMT Mouth: + dentures and + poor dentition; no TMJ abnormality and no dentition abnormality Thyromental Distance: > or= 3.5 Finger Breadths Mallampati Class: II Neck neck extension not limited Respiratory normal respiratory effort; no respiratory distress Auscultation: lungs clear to auscultation bilaterally Cardiovascular Rate/Rhythm: regular rate and regular rhythm Neurologic moves all extremities Psychiatric Orientation: alert and oriented x 3
--- NOTE | 2024-02-25 17:02 | History & Physical Report ---
Date of Service February 25, 2024 Assessment & Plan (1) UTI (urinary tract infection): (2) Ureterolithiasis: (3) Sepsis: Plan: Sepsis due to urinary source Leukocytosis, tachycardia, infected appearing UA, with right obstructing ureteral stone, elevated procalcitonin Creatinine is at baseline, 0.77 on admission 30 cc IBW 1500 cc total, AB W 2760 cc total. She has received 1500 cc in the ER. Reamined tachycardic, also with pain. Additional 500 cc bolus given, tachycardia downtrending Cefepime continued, history of E. coli and Klebsiella infections with Unasyn intermediate resistance. Narrow to Rocephin if well and progressing, and based on sensitivities Lactate is not elevated. Leukocytosis of 12 with neutrophilic predominance, no left shift UA pending, blood cultures pending Seen s/p cystoscopy with right aspiration, retrograde pyelogram, and right stent placement. Tylenol as needed for pain/fever (4) Rheumatoid arthritis: Plan: History of rheumatoid arthritis. Generally follows with [facility]. Currently managing with Celebrex symptomatically, has been on Humira, methotrexate, hydroxychloroquine, and Xeljanz in the past. Xeljanz was stopped 1 month ago. Is not currently on any immune suppressants, and would not start these in the setting of active infection/sepsis. Did not have benefit from Cimzia, and Humira did not give her any benefit. She will keep her follow-up with her senior technical analyst, no acute change in management at time of admission Plan Stable issues: Hyperlipidemia Continue statin DVT prophylaxis: CODE STATUS: Full code Disposition: Medical telemetry due to sepsis, tachycardia Diet: May advance to regular post procedure History of Present Illness Primary Care Provider: Ericka Medina MD Chrissie is a 63-year-old female past medical history of renal stones who presents with abscess due to an obstructing renal stone. Temperature of 102, tachycardic, with obstructing 11 mm right proximal stone and hydro-. Urology consulted and will progress to the OR for cystoscopy and ureteral stent placement. Recommended for medical admission. Seen postoperatively on the floor. Chrissie reports that for approximately 1 week she has had progressive worsening fever, chills,And right flank pain. Was found to have a 9 mm stone on imaging several days ago, and CT 02/23 showed a obstructing 11 mm proximal right calculus with hydro. Fevers and chills continued to progress, she felt so weak she could barely stand today which prompted her to come to the ER. Endorses night sweats. Temperature of [id number] at home no chest pain, chest pressure, shortness of breath, difficulty rosy thing. No leg swelling. Denies history of cardiac disease, pulmonary disease. Endorses history of rheumatoid arthritis, has not been on any immunosuppressants in over a month. Has followed with rheumatology here, generally follows with [facility]. Post procedure she reports her pain is dramatically improved, and almost completely gone. She feels improved, and is hungry. Nausea has improved. No other questions or concerns at bedside. Denies medication allergies Denies tobacco use. Social alcohol use. Full code Allergies Allergy/AdvReac Type Severity Reaction Status Date / Time Sulfa (Sulfonamide AdvReac Unknown Nausea Verified 09/23/23 14:10 Antibiotics) Home Medications Medication Instructions Recorded Confirmed Type acetaminophen 500 mg tablet 500 mg PO DAILY PRN Pain 01/05/23 02/25/24 History (Tylenol Extra Strength) meloxicam 15 mg tablet 15 mg PO QAM 01/05/23 02/25/24 History mometasone 50 mcg/actuation nasal 2 spray intranasal DIRECTED PRN 07/11/23 02/25/24 History spray Congestion multivitamin 1 tab PO QPM 07/11/23 02/25/24 History azelastine 137 mcg (0.1 %) nasal 1 spray intranasal UD PRN Allergy 07/17/23 02/25/24 History spray Symptoms polyethylene glycol 3350 17 gram 17 g PO DIRECTED PRN 07/17/23 02/25/24 History oral powder packet (Miralax) Constipation sumatriptan succinate 50 mg tablet 50 mg PO DIRECTED PRN Migraine 07/17/23 02/25/24 History Headache rosuvastatin 5 mg tablet 5 mg PO DAILY #90 tabs 11/23/23 02/25/24 Rx alendronate 70 mg tablet 70 mg PO WK 02/25/24 02/25/24 History amoxicillin 500 mg tablet 2,000 mg PO ONCE PRN Other 02/25/24 02/25/24 History estradiol 0.01% (0.1 mg/gram) 1 applic vaginal DIRECTED PRN 02/25/24 02/25/24 History vaginal cream Other methylprednisolone 4 mg tablets in 4 mg PO DIRECTED 02/25/24 02/25/24 History a dose pack Past Med/Surg History Problem List (Updated 02/25/24 @ 20:29 by Austin Rick MD) Rheumatoid arthritis Sepsis Sepsis as sequela of procedure Hydronephrosis, right Calculus of proximal right ureter Sciatica Left knee DJD History of total right knee replacement History of total right hip replacement Hydronephrosis, left UTI (urinary tract infection) (Acute) Ureterolithiasis Medical History Difficult intravenous access trouble seeing veins. No hx difficult sticks. History of COVID-19 2 yr ago. History of gallstones Nausea and vomiting after administration of anesthetic agent hx patch and effective. History of recent hospitalization for kidney stones 07/11-07/13/23. Constipation UTI (urinary tract infection) current abx for. pt is feeling better. Kidney stones Hyperlipidemia Osteoporosis Rheumatoid arthritis Gregor's thyroiditis Diverticulosis Chronic sinusitis History of basal cell carcinoma Surgical History S/P total right hip arthroplasty (11/2022) Hx of colonoscopy History of ankle surgery RIGHT Status post right knee replacement History of foot surgery R/L History of dilation and curettage Family History Unknown Cancer Crohn's disease Stroke Leukemia Social History Smoking Status: Never smoker Second Hand Exposure: No; Do You Dip or Chew Tobacco: No; Hx Alcohol Use: Yes Hx Substance Use: No Preferred Language: Guinean Communication Ability: Effective Enterprise Systems Manager Required: No Beliefs That Will Affect Care: None marital status: Current Living Situation: Spouse Feels Safe at Home: Yes Assistive Devices: Glasses Physical Exam Physical Exam: General: A&Ox3. NAD. Cooperative. HEENT: Atraumatic, normocephalic. Pulm: CTAB A&P. -wheezes, -rales, -rhonchi. Symmetrical chest rise. No increased work of breathing. No respiratory distress. Cardiac: RRR, -mrg. Radial pulses intact and symmetrical. Abdominal: Nontender, nondistended, soft. BS present. Results & Data Results & Data Vital Signs (Past 12 Hours) Vital Signs Temp Pulse Resp BP Pulse Ox O2 Del Method 02/25/24 16:43 162/75 H 02/25/24 16:42 122 H 18 93 Room Air 02/25/24 16:30 120 H 18 02/25/24 16:15 124 H 16 93 02/25/24 16:15 149/76 H 02/25/24 16:07 142/74 H 02/25/24 16:06 94 Room Air 02/25/24 16:00 123 H 19 02/25/24 15:58 122 H 02/25/24 15:54 126 H 18 02/25/24 15:31 37.1 C 134 H 20 143/84 H 94 Room Air PG Care Time/CCT Total # of Minutes Spent Total Time Spent with Patient: Total time spent is greater than 50% in coordination of care (as documented) at patient's floor/unit and/or counseling patient: Coding Level of Care Code 84736 INT INP/OBS CARE MIN Diagnoses UTI (urinary tract infection) N39.0 Ureterolithiasis N20.1 Sepsis A41.9 Rheumatoid arthritis, involving unspecified site, unspecified whether rheumatoid factor present M06.9 Rheumatoid arthritis location: unspecified site Rheumatoid factor presence: unspecified presence (4) Rheumatoid arthritis Rheumatoid arthritis location: unspecified site Rheumatoid factor presence: unspecified presence Qualified Code(s): M06.9 - Rheumatoid arthritis, unspecified
[2024-02-25] MEDS ORDERED: ePHEDrine sulfate 50 MG/ML AMP IV PRN (17:08)
[2024-02-25] MEDS ORDERED: ATROPINE SULFATE 0.1 MG/ML 10ML SYR IV PRN (17:08)
[2024-02-25] MEDS ORDERED: HYDROmorphone INJ 1 MG/ML SYRINGE IV PRN (17:08)
[2024-02-25] MEDS ORDERED: ONDANSETRON INJ 2 MG/ML 2 ML VIAL IV PRN (17:08)
[2024-02-25] MEDS ORDERED: fentaNYL citrate PF 100 MCG/2 ML VIAL IV PRN (17:08)
[2024-02-25 17:10] LABS: Albumin Globulin Ratio 0.9 (0.9-2); Albumin Level 3.3 gm/dl (3.4-5.0); BUN Creatinine Ratio 18.2 (10-20); Bilirubin,Total 0.6 mg/dl (0.2-1.0); Calcium 8.4 mg/dl (8.6-10.3); Creatinine Clr Calc Pharmacy 76.9 ml/min; Est GFR (African American) 93.9 ml/min; Globulin 3.5 gm/dl (2.5-4.0); Potassium 3.3 mmol/L (3.5-5.1); Total Protein 6.8 gm/dl (6.0-8.3)
[2024-02-25 17:14] LABS: Appearance Urine Turbid (Clear); Bacteria Urine Automated None Seen (None Seen); Bilirubin Urine Negative (Negative); Blood Urine 2+ (Negative); Cast Urine Automated 0-2 /lpf (0-2); Color Urine Dark Yellow; Glucose Urine UA Negative (Negative); Ketones Urine 2+ (Negative); Leukocyte Esterase Urine 2+ (Negative); Nitrite Urine Negative (Negative); Protein Urine 2+ (Negative); Specific Gravity Urine 1.023 (1.000-1.030); Urobilinogen Urine Negative (Negative); WBC Urine Automated >50 /hpf (0-5); pH Urine 5.5 (4.5-7.5)
[2024-02-25] MEDS: SCOPOLAMINE 1 MG/72 HR TDSY PATCH TD ONE (18:08)
[2024-02-25] MEDS ORDERED: fentaNYL citrate PF 100 MCG/2 ML VIAL ONE (18:16)
[2024-02-25] MEDS ORDERED: LIDOCAINE 2% 2 ML VIAL/AMP(20MG/ML) INFIL ONE (18:31)
[2024-02-25] MEDS ORDERED: KETOROLAC 30 MG/ML VIAL ONE (18:31)
[2024-02-25] MEDS ORDERED: PROPOFOL IV EMULSION 10 MG/ML 20 ML VIAL IV ONE (18:31)
--- NOTE | 2024-02-25 18:35 | Operative Report ---
PG Post Operative Report Pre & Post Diagnosis Operation Date: 02/25/24 13:00 Pre-Op Diagnosis: Calculus of proximal right ureter, Hydronephrosis, right Post-Op Diagnosis: Calculus of proximal right ureter, Hydronephrosis, right I identified the patient and participated in the time-out.: Yes Procedure Operation Date: 02/25/24 13:00 Actual Procedures p Cystoscopy with Right Aspiration, Retrograde Pyelogram, Right Ureteral Stent Placement(Right) - Scot Diehl DO Surgeon Scot Diehl, II, DO Flue Dust Laborer None Estimated Blood Loss 1 Findings Consistent with Post-Op Diagnosis Significant purulent urine from the right kidney. Stent placed in good position. Specimens Urine for Culture. Drains 6 Fr Multilength 18 Fr Sales Anesthesia Type MAC Complications none Disposition Disposition: Recovery Room Indications Patient with obstruction. Risks and benefits discussed at length. Description of Procedure Patient was consented and brought back to the operating room. Patient was placed under anesthesia in the supine position and moved to the dorsal lithotomy position. Patient was prepped and draped in the regular sterile fashion. A time out was completed. A 30degree Cystoscope was placed into the bladder and the entire bladder was examined. The UO's were identified. Debris was noted in the bladder. The UO was cannulized with a catheter and advanced to the renal pelvis. Significant manipulation was necessary in order to bypassed the stone which was visible on the fluoroscopy. After some manipulation and utilizing a wire the catheter was able to advance into the renal pelvis. Immediately a large amount of purulent urine was noted to be draining from the kidney. Urine was aspirated from the right renal pelvis and sent for culture. A retrograde pyelogram was completed. A wire was then placed. With the wire in place, a 6 Fr Double J stent was placed. It was confirmed with fluoroscopy. With the stent in place, the bladder was emptied. The scope was removed. A large amount of debris was noted to be draining from the left kidney. The debris was thickened and did appear to be Building in the base of the bladder. Due to this a 18 Taj[place] catheter was placed and allowed to drain. At this point, the patient was cleaned, aroused from anesthesia, and transferred to the pacu in stable condition having tolerated the procedure well with no complications. I was present and participated in all aspects of the procedure. The patient will be monitored in the PACU until transferred. Plan to maintain stent on likely broad-spectrum antibiotics over the next couple weeks. Can de-escalate once cultures are available. Can trial removal of catheter in 1 to 2 days. I attest to the content of the Intraoperative Record and any orders documented therein. Any exceptions are noted below.
[2024-02-25] MEDS: ACETAMINOPHEN 1000 MG/100 ML IV IV ONE (18:40)
--- NOTE | 2024-02-25 19:26 | Fluoroscopy Report ---
INTRAOPERATIVE RADIOGRAPHS CLINICAL HISTORY: Right ureteral stent placement. Fluoro time: 26 seconds Ka,r: 6.34 mGy FINDINGS: 2 spot fluoroscopic views of the right abdomen are correlated with abdominal CT dated 2023. Contrast in the right renal collecting system shows hydronephrosis. The images show the proxima l and distal ends of a right ureteral stent in appropriate position. A right hip arthroplasty is in p lace. IMPRESSION: Intraoperative images from a right ureteral stent placement procedure as above. Electronically signed by: Richard Alnaiz M.D. 02/25/2024 7:25 PM
[2024-02-25] MEDS: CHECK SCOPOLAMINE PATCH PLACEMENT SCH (20:43)
[2024-02-25] MEDS: POTASSIUM CHLORIDE CRTAB 20 MEQ TABCR PO STA (20:44)
[2024-02-25] MEDS: LACTATED RINGER'S 1,000 ML IV SCH (20:44)
[2024-02-25] MEDS: CEFEPIME 2,000 MG in SYRINGE 0 ML IV SCH (23:21)
[2024-02-26] MEDS: NSS + 20MEQ KCL 20 MEQ/1,000 ML BAG IV SCH (15:11)
--- NOTE | 2024-02-26 16:07 | Electrocardiogram Report ---
Test Reason : Blood Pressure : / mmHG Vent. Rate : 125 BPM Atrial Rate : 125 BPM P-R Int : 128 ms QRS Dur : 094 ms QT Int : 310 ms P-R-T Axes : 023 -27 060 degrees QTc Int : 447 ms Sinus tachycardia Otherwise normal ECG When compared with ECG of 11-JUL-2023 19:25, Vent. rate has increased BY 51 BPM Nonspecific T wave abnormality no longer evident in Inferior leads Confirmed by Blue Alamo ([id number]) on 02/26/2024 4:07:38 PM Referred By: Confirmed By:Blue Alamo
[2024-02-26 16:08] LABS: Albumin Level 3.1 gm/dl (3.4-5.0); BUN Creatinine Ratio 25.9 (10-20); Bilirubin,Total 0.4 mg/dl (0.2-1.0); Creatinine Clr Calc Pharmacy 109.9 ml/min; Est GFR (African American) 114.8 ml/min; Globulin 3.1 gm/dl (2.5-4.0); Magnesium 1.6 mg/dl (1.7-2.4); Potassium 3.4 mmol/L (3.5-5.1); Total Protein 6.2 gm/dl (6.0-8.3)
--- NOTE | 2024-02-26 16:32 | Hospitalist Progress Note ---
Date of Service February 26, 2024 Assessment & Plan (1) UTI (urinary tract infection): Plan: COMPLICATED in the setting of an obstructing right-sided 11mm kidney stone Likely pyelonephritis on right (had purulent urine flowing from R kidney during cystoscopy) Certainly with evidence of sepsis Cont cefepime IV Follow cultures (2) Ureterolithiasis: Plan: right-sided 11mm stone - obstructing s/p urgent cystoscopy yesterday with R sided stent placement appreciate urology assistance has numerous other tiny stones in both renal pelvices defer Rx to urology (3) Sepsis: Plan: 2nd to #1 + right-sided pyelonephritis follow cx's cont cefepime checked COVID test to be complete due to persistent fevers -- returned negative (4) Rheumatoid arthritis: Plan: follows with Samanta. Currently managing with Celebrex symptomatically, has been on Humira, methotrexate, hydroxychloroquine, and Xeljanz in the past. Xeljanz was stopped 1 month ago. Is not currently on any immune suppressants, and would not start these in the setting of active infection/sepsis. Did not have benefit from Cimzia, and Humira did not give her any benefit. She will keep her follow-up with her test engineer as outpatient. Plan DVT proph - if creatinine is stable in am will add lovenox 40mg daily resume IV fluids due to sepsis/volume contraction repeat labs am Admission and Anticipated Discharge Date Admission Date: February 25, 2024 Subjective patient reports fatigue and weakness - maybe slightly better than yesterday appetite is off/poor no back pain/flank pain/abd pain no nausea/emesis had fevers overnight and again today tele - wnl Review of Systems Review of Systems: gen - fevers, chills, fatigue, appetite loss cv - n ochest pain pulm - no dyspnea or SIGALA GI - no abd pain Physical Exam Physical Exam: gen - obese, looks sick/ill, but NAD and pleasant mouth - MM dry neck - no JVD heart - RRR, s1 s2, no murmur lungs - CTA b/l abd - soft NT ND BS+ ext - no edema, pulses 2+ b/l back - no flank tenderness to palpation Results & Data Results & Data Vital Signs (Past 12 Hours) Vital Signs Temp Pulse Resp BP Pulse Ox O2 Del Method 02/26/24 15:33 37.1 C 96 H 16 119/74 92 Room Air 02/26/24 15:12 38.4 C H Laboratory Results Laboratory Results - last 48 hr 02/25/24 02/25/24 02/26/24 16:34 16:45 14:55 WBC 12.69 H 13.10 H RBC 3.81 L 3.31 L Hgb 10.8 L 9.4 L Hct 32.5 L 28.8 L MCV 85.3 87.0 MCH 28.3 28.4 MCHC 33.2 32.6 RDW Std Deviation 42.8 45.0 RDW Coeff of Kaushik 13.6 14.1 Plt Count 210 206 MPV 9.5 9.6 Immature Gran % (Auto) 0.6 Neut % (Auto) 87.6 Lymph % (Auto) 2.8 [place]hin % (Auto) 8.6 Eos % (Auto) 0.2 Baso % (Auto) 0.2 Neut # (Auto) 11.12 H Lymph # (Auto) 0.35 L [place]hin # (Auto) 1.09 H Eos # (Auto) 0.02 Baso # (Auto) 0.03 Immature Gran # (Auto) 0.08 Sodium 135 L 136 Potassium 3.3 L 3.4 L Chloride 101 105 Carbon Dioxide 24 23 Anion Gap 10 8 BUN 14 14 Creatinine 0.77 0.54 L Est Cr Clr Drug Dosing 76.9 109.9 Est GFR ( Amer) 93.9 114.8 Est GFR (Non-Af Amer) 81.0 99.0 BUN/Creatinine Ratio 18.2 25.9 H Glucose 147 H 142 H Lactate 1.1 Calcium 8.4 L 8.0 L Magnesium 1.6 L Total Bilirubin 0.6 0.4 AST 20 32 ALT 17 28 Alkaline Phosphatase 73 75 Total Protein 6.8 6.2 Albumin 3.3 L 3.1 L Globulin 3.5 3.1 Albumin/Globulin Ratio 0.9 1.0 Procalcitonin 0.61 H Urine Color Dark Yellow Urine Appearance Turbid A Urine pH 5.5 Ur Specific Selmer 1.023 Urine Protein 2+ H Urine Glucose (UA) Negative Urine Ketones 2+ H Urine Blood 2+ H Urine Nitrite Negative Urine Bilirubin Negative Urine Urobilinogen Negative Ur Leukocyte Esterase 2+ H Urine WBC (Auto) >50 H Urine RBC (Auto) 6-10 H U Hyaline Cast (Auto) 0-2 U Epithel Cells (Auto) 3-5 H Urine Bacteria (Auto) None Seen SARS-CoV-2 (PCR) Influenza Type A (PCR) Influenza Type B (PCR) RSV (RT-PCR) WBC RBC Hgb Hct MCV MCH MCHC RDW Std Deviation RDW Coeff of Kaushik Plt Count MPV Immature Gran % (Auto) Neut % (Auto) Lymph % (Auto) [place] % (Auto) Eos % (Auto) Baso % (Auto) Neut # (Auto) Lymph # (Auto) [place]hin # (Auto) Eos # (Auto) Baso # (Auto) Immature Gran # (Auto) Sodium Potassium Chloride Carbon Dioxide Anion Gap BUN Creatinine Est Cr Clr Drug Dosing Est GFR ( Amer) Est GFR (Non-Af Amer) BUN/Creatinine Ratio Glucose Lactate Calcium Magnesium Total Bilirubin AST ALT Alkaline Phosphatase Total Protein Albumin Globulin Albumin/Globulin Ratio Procalcitonin Urine Color Urine Appearance Urine pH Ur Specific [place] Urine Protein Urine Glucose (UA) Urine Ketones Urine Blood Urine Nitrite Urine Bilirubin Urine Urobilinogen Ur Leukocyte Esterase Urine WBC (Auto) Urine RBC (Auto) U Hyaline Cast (Auto) U Epithel Cells (Auto) Urine Bacteria (Auto) SARS-CoV-2 (PCR) Influenza Type A (PCR) Influenza Type B (PCR) RSV (RT-PCR) Diagnostic Findings Microbiology 02/25/24 16:34 Blood Aerobic Blood Culture - Preliminary No growth in Aerobic bottle after 24 hours. 02/25/24 16:34 Blood Anaerobic Blood Culture - Preliminary No growth in Anaerobic bottle after 24 hours. 02/25/24 16:17 Blood Aerobic Blood Culture - Preliminary No growth in Aerobic bottle after 24 hours. 02/25/24 16:17 Blood Anaerobic Blood Culture - Preliminary No growth in Anaerobic bottle after 24 hours. 02/25/24 18:23 Kidney,Right Gram Stain - Final 02/25/24 18:23 Kidney,Right Aerobic and Anaerobic Culture - Preliminary Gram negative bacilli 02/25/24 16:45 Urine,Clean Catch Urine Culture - Final Three types of organisms present, all moderate counts. Repeat collection recommended. No further identifications or sensitivities to follow. PG Care Time/CCT Total # of Minutes Spent Total Time Spent with Patient: Total time spent is greater than 50% in coordination of care (as documented) at patient's floor/unit and/or counseling patient: Coding Level of Care Code 01526 SUB INP/OBS CARE MIN Diagnoses UTI (urinary tract infection) N39.0 Ureterolithiasis N20.1 Sepsis A41.9 Rheumatoid arthritis, involving unspecified site, unspecified whether rheumatoid factor present M06.9 Rheumatoid arthritis location: unspecified site Rheumatoid factor presence: unspecified presence (4) Rheumatoid arthritis Rheumatoid arthritis location: unspecified site Rheumatoid factor presence: unspecified presence Qualified Code(s): M06.9 - Rheumatoid arthritis, unspecified
[2024-02-26] MEDS: ROSUVASTATIN CALCIUM 5 MG TAB PO SCH (17:06)
[2024-02-26] MEDS: MAGNESIUM SULFATE / D5W 1 GM/100 ML BAG IV ONE (17:25)
[2024-02-26] MEDS: ACETAMINOPHEN 325 MG TAB PO PRN (17:44)
[2024-02-26 18:50] LABS: Hematocrit (blood only) 28.8 % (37.0-47.0); Hemoglobin 9.4 g/dl (12.0-16.0); Mean Corpuscular Hemoglobin 28.4 pg (25.0-34.0); Mean Corpuscular Hgb Conc 32.6 g/dL (32.0-36.0); Mean Platelet Volume 9.6 fL (9.4-12.4); Platelet Count 206 K/uL (130-400); RDW Coefficient of Variation 14.1 % (11.5-14.5); Red Blood Count 3.31 M/uL (4.20-5.40)
[2024-02-26 19:29] LABS: Influenza A virus by PCR Negative (Neg); Influenza B virus by PCR Negative (Neg); RSV by PCR Negative (Neg); SARS CoV2 RNA(COVID-19) Ceph NEGATIVE (Negative)
[2024-02-26] MEDS: FLUTICASONE PROPIONATE NA SPR 16 GM BTL SCH (19:38)
[2024-02-26] MEDS: AZELASTINE HCL 0.1% NASAL 200 SPRAYS/27,400 MCG BTL NAE SCH (21:23)
[2024-02-27 06:56] LABS: Hematocrit (blood only) 32.2 % (37.0-47.0); Hemoglobin 10.1 g/dl (12.0-16.0); Mean Corpuscular Hgb Conc 31.4 g/dL (32.0-36.0); Mean Corpuscular Volume 89.2 fL (80.0-100.0); Mean Platelet Volume 9.6 fL (9.4-12.4); Platelet Count 221 K/uL (130-400); RDW Coefficient of Variation 13.9 % (11.5-14.5); RDW Standard Deviation 45.3 fL (36.4-46.3); Red Blood Count 3.61 M/uL (4.20-5.40); White Blood Count 12.51 K/ul (4.8-10.8)
[2024-02-27 07:30] LABS: Magnesium 2.1 mg/dl (1.7-2.4)
[2024-02-27] MEDS ORDERED: Nursing to Pharmacy Communication SCH (08:15)
[2024-02-27 08:38] LABS: Calcium 8.2 mg/dl (8.6-10.3); Potassium 3.8 mmol/L (3.5-5.1)
[2024-02-27 08:44] LABS: BUN Creatinine Ratio 28.6 (10-20); Est GFR (African American) 113.4 ml/min; Est GFR (Non-African American) 97.8 ml/min
[2024-02-27] MEDS: ENOXAPARIN INJ 40 MG/0.4 ML SYR SQ SCH (09:40)
[2024-02-27] MEDS: ONDANSETRON INJ 2 MG/ML 2 ML VIAL IV PRN (09:43)
[2024-02-27] MEDS: cefTRIAXone SODIUM 2,000 MG/50 ML BAG IV SCH (15:24)
--- NOTE | 2024-02-27 19:45 | Hospitalist Progress Note ---
Date of Service February 27, 2024 Assessment & Plan (1) UTI (urinary tract infection): Plan: COMPLICATED in the setting of an obstructing right-sided 11mm kidney stone Likely pyelonephritis on right (had purulent urine flowing from R kidney during cystoscopy) 2nd to klebsiella Can change cefepime to IV rocephin 2gm daily At discharge can transition to PO cipro Plan 14 days in total of Rx Blood cultures remain negative (2) Pyelonephritis of right kidney: Plan: UTI/pyelo/sepsis Ongoing fevers 2nd to such You can have fevers from pyelo sometimes as long as 4-5 days even with appropriate abx therapy changing cefepime to rocephin IV based on urine cx results follow blood cx's (3) Ureterolithiasis: Plan: right-sided 11mm stone - obstructing POD #2 - s/p urgent cystoscopy with R sided stent placement appreciate urology assistance has numerous other tiny stones in both renal pelvices defer Rx to urology (4) Sepsis: Plan: 2nd to #1 + #2 in setting of obstructing right-sided kidney stone see above checked COVID test to be complete due to persistent fevers -- returned negative (5) Rheumatoid arthritis: Plan: follows with Samanta. Currently managing with Celebrex symptomatically, has been on Humira, methotrexate, hydroxychloroquine, and Xeljanz in the past. Xeljanz was stopped 1 month ago. Is not currently on any immune suppressants, and would not start these in the setting of active infection/sepsis. Did not have benefit from Cimzia, and Humira did not give her any benefit. She will keep her follow-up with her winter intern as outpatient. Plan DVT proph - add lovenox 40mg daily can likely stop IV fluids tonight or tomorrow labs in am updated at bedside Admission and Anticipated Discharge Date Admission Date: February 25, 2024 Subjective patient still feeling poorly still poor appetite energy is poor headache minimal abdominal discomfort at times minimal LUTS Review of Systems Review of Systems: gen - still with fevers/chills at times; fatigue, weak pulm - no dyspnea cv - no chest pain Physical Exam Physical Exam: gen - obese, still looks sick/ill, but NAD mouth - MMM neck - no JVD heart - RRR, s1 s2, no murmur lungs - CTA b/l abd - soft NT ND BS+ ext - no edema, pulses 2+ b/l back - no flank tenderness to palpation Results & Data Results & Data Vital Signs (Past 12 Hours) Vital Signs Temp Pulse Pulse Resp BP Pulse Ox O2 Del Method 02/27/24 16:00 37.0 C 85 18 129/70 96 Room Air 02/27/24 15:31 96 H 02/27/24 11:00 37.1 C 86 16 133/85 97 Room Air 02/27/24 09:17 37.7 C H 02/27/24 08:00 86 02/27/24 08:00 Room Air Laboratory Results Abnormal lab results 02/27/24 Range/Units 06:18 WBC 12.51 H (4.8-10.8) K/ul RBC 3.61 L (4.20-5.40) M/uL Hgb 10.1 L (12.0-16.0) g/dl Hct 32.2 L (37.0-47.0) % MCHC 31.4 L (32.0-36.0) g/dL Creatinine 0.56 L (0.6-1.2) mg/dl BUN/Creatinine Ratio 28.6 H (10-20) Glucose 114 H (70-99(Fasting)) mg/dl Calcium 8.2 L (8.6-10.3) mg/dl Diagnostic Findings Microbiology 02/25/24 16:34 Blood Aerobic Blood Culture - Preliminary No growth in Aerobic bottle after 48 hours. 02/25/24 16:34 Blood Anaerobic Blood Culture - Preliminary No growth in Anaerobic bottle after 48 hours. 02/25/24 16:17 Blood Aerobic Blood Culture - Preliminary No growth in Aerobic bottle after 48 hours. 02/25/24 16:17 Blood Anaerobic Blood Culture - Preliminary No growth in Anaerobic bottle after 48 hours. 02/25/24 18:23 Kidney,Right Gram Stain - Final 02/25/24 18:23 Kidney,Right Aerobic and Anaerobic Culture - Preliminary Klebsiella pneumoniae 02/25/24 16:45 Urine,Clean Catch Urine Culture - Final Three types of organisms present, all moderate counts. Repeat collection recommended. No further identifications or sensitivities to follow. PG Care Time/CCT Total # of Minutes Spent Total Time Spent with Patient: Total time spent is greater than 50% in coordination of care (as documented) at patient's floor/unit and/or counseling patient: Coding Level of Care Code 09459 SUB INP/OBS CARE MIN Diagnoses UTI (urinary tract infection) N39.0 Pyelonephritis of right kidney N12 Ureterolithiasis N20.1 Sepsis A41.9 Rheumatoid arthritis, involving unspecified site, unspecified whether rheumatoid factor present M06.9 Rheumatoid arthritis location: unspecified site Rheumatoid factor presence: unspecified presence (5) Rheumatoid arthritis Rheumatoid arthritis location: unspecified site Rheumatoid factor presence: unspecified presence Qualified Code(s): M06.9 - Rheumatoid arthritis, unspecified
[2024-02-27] MEDS: ROSUVASTATIN CALCIUM 5 MG TAB PO SCH (20:49)
[2024-02-28 07:19] LABS: Hematocrit (blood only) 27.8 % (37.0-47.0); Mean Corpuscular Hemoglobin 28.3 pg (25.0-34.0); Mean Corpuscular Hgb Conc 32.4 g/dL (32.0-36.0); Mean Corpuscular Volume 87.4 fL (80.0-100.0); Mean Platelet Volume 9.2 fL (9.4-12.4); Platelet Count 239 K/uL (130-400); RDW Standard Deviation 44.7 fL (36.4-46.3); Red Blood Count 3.18 M/uL (4.20-5.40); White Blood Count 10.12 K/ul (4.8-10.8)
[2024-02-28] MEDS: ADVANCED PROBIOTIC 625 MG CAPSULE PO SCH (07:41)
[2024-02-28 07:51] LABS: BUN Creatinine Ratio 26.1 (10-20); Calcium 7.7 mg/dl (8.6-10.3); Creatinine Clr Calc Pharmacy 132.1 ml/min; Est GFR (Non-African American) 104.4 ml/min; Potassium 3.6 mmol/L (3.5-5.1)
--- NOTE | 2024-02-28 14:42 | Urology Progress Note ---
Date of Service February 28, 2024 Assessment & Plan (1) Calculus of proximal right ureter: (2) Hydronephrosis, right: Plan Postop day 3 status post stent placement for obstructing stone and severe pyelonephritis. Patient had significant purulence draining from the kidney. Has been recovering. Has not had severe episodes of pain. Was having some fevers with a higher fever immediately after the procedure. These have come and gone. Has improved over the last day. Culture came back as pansensitive Klebsiella. We are going to be placed on oral Cipro for likely a week for clearing of the infection. Is completing the IV antibiotic course. Patient has been tolerating otherwise. Has been increasing activity. Went on a walk earlier today. Has been tolerating diet. Will need to undergo treatment of stone disease. Will likely need 1 to 2 weeks to completely clear the infection before getting set up. Will have patient return to the office in 1 to 2 weeks to set up procedure for stone treatment. Will plan to maintain stent. May see some blood in the urine. Will plan to continue to monitor. Admission and Anticipated Discharge Date Admission Date: February 25, 2024 Subjective Postop from stent placement for obstruction issues. Severe obstruction with significant pyelonephritis and purulence draining from the kidney. Was having some postoperative fevers likely secondary to Mj. This is improved over the last day. Otherwise patient has been tolerating well. Has noticed some frequency and urgency. Has not had severe pain in the back and flank. Does have occasional burning and irritation. No severe episodes or major changes. No new nausea or vomiting. Had tolerated anesthesia without major problems Review of Systems Review of Systems: All systems reviewed & are unremarkable except as noted in HPI & below Physical Exam Physical Exam: General: Alert in no acute distress. HEENT: Normocephalic Atraumatic. Inspection normal. Cranial Nerves 2-12 Gr ossly intact. Normal inspection of face. Normal inspection of neck. Psychologic: Normal affect. Respiratory: Nonlabored. No use of accessory muscles. No tachypnea or dyspnea. Cardiovascular: No tachycardia Skin: [place] and Dry. No rashes or visible lesions. Extremities/Lymphatics: No edema Abdomen: Soft Non-distended. No rebound or guarding. Results & Data Vital Signs (Past 12 Hours) Vital Signs Temp Pulse Pulse Resp BP Pulse Ox O2 Del Method 02/28/24 11:04 36.9 C 84 18 146/84 H 94 Room Air 02/28/24 08:40 90 02/28/24 08:00 Room Air 02/28/24 07:39 36.8 C 80 18 149/86 H 93 Room Air PG Care Time/CCT Total # of Minutes Spent Total Time Spent with Patient: Total time spent is greater than 50% in coordination of care (as documented) at patient's floor/unit and/or counseling patient: Coding Level of Care Code 88849 SUB INP/OBS CARE 3/50MIN Diagnoses Calculus of proximal right ureter N20.1 Hydronephrosis, right N13.30
[2024-02-28] MEDS: POTASSIUM CHLORIDE CRTAB 20 MEQ TABCR PO STA (15:06)
[2024-02-28] MEDS: FUROSEMIDE 20 MG TAB PO SCH (15:07)
[2024-02-28] MEDS: MAGNESIUM OXIDE 400 MG TAB PO SCH (15:08)
--- NOTE | 2024-02-28 17:49 | Discharge Summary ---
Date of Service February 28, 2024 Admission HPI Per Admitting Provider Chrissie is a 63-year-old female past medical history of renal stones who presents with abscess due to an obstructing renal stone. Temperature of 102, tachycardic, with obstructing 11 mm right proximal stone and hydro-. Urology consulted and will progress to the OR for cystoscopy and ureteral stent placement. Recommended for medical admission. Seen postoperatively on the floor. Chrissie reports that for approximately 1 week she has had progressive worsening fever, chills,And right flank pain. Was found to have a 9 mm stone on imaging several days ago, and CT 02/23 showed a obstructing 11 mm proximal right calculus with hydro. Fevers and chills continued to progress, she felt so weak she could barely stand today which prompted her to come to the ER. Endorses night sweats. Temperature of [id number] at home no chest pain, chest pressure, shortness of breath, difficulty breathing. No leg swelling. Denies history of cardiac disease, pulmonary disease. Endorses history of rheumatoid arthritis, has not been on any immunosuppressants in over a month. Has followed with rheumatology here, generally follows with [facility]. Post procedure she reports her pain is dramatically improved, and almost completely gone. She feels improved, and is hungry. Nausea has improved. No other questions or concerns at bedside. Denies medication allergies Denies tobacco use. Social alcohol use. Full code Discharge Exam gen - obese, still looks sick/ill, but NAD mouth - MMM neck - no JVD heart - RRR, s1 s2, no murmur lungs - CTA b/l abd - soft NT ND BS+ ext - no edema, pulses 2+ b/l back - no flank tenderness to palpation Discharge Data Allergies Allergy/AdvReac Type Severity Reaction Status Date / Time Sulfa (Sulfonamide AdvReac Unknown Nausea Verified 09/23/23 14:10 Antibiotics) Consultations 02/25/24 16:08 ED Decision to Admit Stat 02/25/24 20:17 Consult Urology Routine Procedures Performed Operation Date: 02/25/24 13:00 Actual Procedures p Cystoscopy, Retrograde Pyelogram, Right Ureteral Stent Placement(Right) - Scot Diehl, DO Ordered Studies 02/25/24 FL retrograde includes kub Routine Hospital Course (1) UTI (urinary tract infection): COMPLICATED in the setting of an obstructing right-sided 11mm kidney stone Likely pyelonephritis on right (had purulent urine flowing from R kidney during cystoscopy) 2nd to klebsiella Can change cefepime to IV rocephin 2gm daily At discharge can transition to PO cipro Plan 14 days in total of Rx Blood cultures remain negative (2) Pyelonephritis of right kidney: UTI/pyelo/sepsis Ongoing fevers 2nd to such You can have fevers from pyelo sometimes as long as 4-5 days even with appropriate abx therapy changing cefepime to rocephin IV based on urine cx results follow blood cx's (3) Ureterolithiasis: right-sided 11mm stone - obstructing POD #2 - s/p urgent cystoscopy with R sided stent placement appreciate urology assistance has numerous other tiny stones in both renal pelvices defer Rx to urology (4) Sepsis: 2nd to #1 + #2 in setting of obstructing right-sided kidney stone see above checked COVID test to be complete due to persistent fevers -- returned negative (5) Rheumatoid arthritis: follows with [facility]. Currently managing with Celebrex symptomatically, has been on Humira, methotrexate, hydroxychloroquine, and Xeljanz in the past. Xeljanz was stopped 1 month ago. Is not currently on any immune suppressants, and would not start these in the setting of active infection/sepsis. Did not have benefit from Cimzia, and Humira did not give her any benefit. She will keep her follow-up with her business risk consultant as outpatient. Plan DVT proph - add lovenox 40mg daily can likely stop IV fluids tonight or tomorrow labs in am updated at bedside Discharge Plan Discharge Items Patient Disposition: Home - Self-Care Reason For Visit: SEPSIS, KIDNEY STONE Discharge Diagnosis: 1. right-sided kidney stone with placement of ureteral stent by Dr Scot Diehl 2. right-sided pyelonephritis / urinary tract infection - improving 3. sepsis due to #1, #2 - resolved 4. rheumatoid arthritis 5. mild anemia - hemoglobin 9 at discharge 6. incidental finding of a gallstone in the gall bladder 7. incidental finding of colonic diverticulosis Activity: As commented below Activity Comment: light activities only; avoid heavy exertional activities Lifting: No more than 10 pounds Sexual Activity: Wait until after follow-up appointment Exercise/Sports: Wait until after follow-up appointment Driving/Machine Use: May resume driving in 48 hours Non-emergency contact: Primary Care Provider and Urologist Call non-emergency contact if: you have any medication questions, your symptoms worsen, your pain is not controlled, your pain is worsening, your pain is unusual for you, your pain is concerning for you and your temperature is above 101 Follow-up/Referrals: Ericka Medina MD [Primary Care Provider] - (5-7 days ) Scot Diehl DO [Physician] - (1-2 weeks for stent management ) Diet: Regular Addtl Attending Provider Instructions: Ms La, You were hospitalized due to having sepsis and urinary tract infection/pyelonephritis (kidney infection - see handout) due to a large, right- sided kidney stone. The stone was 11mm in size. Dr Scot Diehl from [facility] saw you in consult and took you to the operating room where he placed a tube in your right ureter called a "stent" (also see handout). A ureteral stent allows urine to flow in normal fashion from the kidney down to the bladder. Your urinary tract infection was treated with IV antibiotics. Your fevers gradually resolved over time. Your blood cultures remained negative during your stay. This means that we did not find bacteria in your blood. Recommendations - 1. antibiotics - * ciprofloxacin 500mg twice daily x 10 days, first dose tomorrow morning * most common side effect - diarrhea 2. for bladder pain/bladder spasm - * oxybutinin 5mg every 12 hours as needed * common side effect - dry mouth/dry eyes 3. for urinary pain or burning - * phenazopyridine 100mg every 8 hours as needed * this medication will turn your urine an orange color - this is normal 4. to prevent pain from your stent which is quite common in individuals who have ureteral stents please take - * tamsulosin 0.4mg once daily starting tomorrow morning * most common side effect - dizziness upon standing; most people do not get this side effect however 5. tomorrow morning, 02/28, take furosemide 20mg by mouth x 1 along with potassium supplement x 1. The furosemide is a water pill/diuretic. It will remove any additional build-up fluid you have. If your weight tomorrow afternoon is back to your normal weight you do not need to take any further furosemide on Thursday morning. 6. as previously discussed it is common to have some minor amounts of blood in the urine after a stent procedure. Large amounts of blood or clots are not, however. 7. it is possible you may have some low-grade temperatures tonight and/or tomorrow (high 99s, etc) but high temperature spikes (over 101.5) would be a cause for concern. 8. when you see your family doctor please have them repeat a CBC blood count and also ask for nutritional labs to be checked including iron studies, vitamin B12 level and folic acid level. Follow-up - see separate section Return to [facility] if - * you have uncontrolled back pain, flank pain or abdominal pain * you have severe diarrhea * you see large amounts of blood in your urine * you cannot pass your urine * you have fever over 101.5 degrees * any other concerns It was our pleasure to care for you! -Dr Martinez Pending Studies at Discharge: Yes Studies:: blood cultures, but thus far negative x 72 hours Stand-Alone Forms: [facility], Smoking Cessation Medications and DC Order Prescriptions: New ciprofloxacin HCl [Cipro] 500 mg tablet 500 mg PO BID 10 Days Qty: 20 0RF Rx Instructions: first dose 02/29/24 AM. tamsulosin [Flomax] 0.4 mg capsule 0.4 mg PO DAILY Qty: 30 1RF Rx Instructions: to reduce ureteral pain oxybutynin chloride 5 mg tablet 5 mg PO Q12H PRN (Reason: bladder spasms or bladder pain) Qty: 10 0RF phenazopyridine [Pyridium] 100 mg tablet 100 mg PO Q8H PRN (Reason: urinary burning/pain) Qty: 10 0RF furosemide [Lasix] 20 mg tablet 20 mg PO QAM PRN (Reason: swelling/edema) Qty: 3 0RF potassium chloride 20 mEq tablet extended release 20 meq PO DAILY PRN (Reason: only when you take furosemide diuretic) Qty: 3 0RF Continued rosuvastatin 5 mg tablet 5 mg PO DAILY Qty: 90 3RF multivitamin Tablet 1 tab PO QPM mometasone 50 mcg/actuation spray,non-aerosol 2 spray intranasal DIRECTED PRN (Reason: Congestion) Rx Instructions: administer into each nostril sumatriptan succinate 50 mg tablet 50 mg PO DIRECTED PRN (Reason: Migraine Headache) Rx Instructions: Take 1 tablet for headache, repeat in 1 hour if needed (No more than 2 tablets per day); azelastine 137 mcg (0.1 %) aerosol,spray 1 spray intranasal UD PRN (Reason: Allergy Symptoms) Rx Instructions: administer into each nostril polyethylene glycol 3350 [Miralax] 17 gram Powder In Packet 17 g PO DIRECTED PRN (Reason: Constipation) alendronate 70 mg tablet 70 mg PO WK methylprednisolone 4 mg tablets,dose pack 4 mg PO DIRECTED Rx Instructions: hasnt started medication as directed on package amoxicillin 500 mg tablet 2,000 mg PO ONCE PRN (Reason: Other) Rx Instructions: 4 tabs 1 hour prior to procedure estradiol 0.01 % (0.1 mg/gram) cream 1 applic vaginal DIRECTED PRN (Reason: Other) Rx Instructions: Apply pea sized amount to urethra and vaginal opening once daily; Changed acetaminophen [Tylenol Extra Strength] 500 mg tablet 1,000 mg PO Q6H PRN (Reason: Pain) Qty: 1 0RF Rx Instructions: maximum 3000mg in 24 hours Discontinued meloxicam 15 mg Tablet 15 mg PO QAM Discharge Orders: Discharge Order (Routine); Ordered 02/28/24 Ordered By: Ryan Lara/Other Patient Handouts: Having a Ureteral Stent, Understanding Kidney Stones, Preventing Kidney Stones, ED Kidney Infection (Adult Female) Admission Data Admit Date/Time: 02/25/24 17:00 Attending Provider: Ryan Martinez Admit Provider: Austin Rick Primary Care Provider: Ericka Medina Other Providers: Austin Rick; Morro Escobar Coding Diagnoses UTI (urinary tract infection) N39.0 Pyelonephritis of right kidney N12 Ureterolithiasis N20.1 Sepsis A41.9 Rheumatoid arthritis, involving unspecified site, unspecified whether rheumatoid factor present M06.9 Rheumatoid arthritis location: unspecified site Rheumatoid factor presence: unspecified presence
[2024-02-29 14:39] LABS: A calco-baum cmplx NotReported Not Detected (NotDetected); Bact fragilis Not Reported Not Detected (NotDetected); Blood Culture Id Panel See PCR Comment (NotDetected); C auris Not Reported Not Detected (NotDetected); CTX-M Resistant Gene Not Detected (NotDetected); Calbicans Not Reported Not Detected (NotDetected); Candida glabrata Not Reported Not Detected (NotDetected); Candida krusei Not Reported Not Detected (NotDetected); Cneoformans/gatti Not Reported Not Detected (NotDetected); Cparapsilosis Not Reported Not Detected (NotDetected); E cloacae compx Not Reported Not Detected (NotDetected); Efaecalis Not Reported Not Detected (NotDetected); Efaecium Not Reported Not Detected (NotDetected); Enterobacterales DETECTED (NotDetected); Enterobacterales Not Reported DETECTED (NotDetected); Escherichia coli Not Reported Not Detected (NotDetected); H influenzae Not Reported Not Detected (NotDetected); IMP Resistant Gene Not Detected (NotDetected); K aerogenes Not Reported Not Detected (NotDetected); KPC Resistant Gene Not Detected (NotDetected); Koxytoca Not Reported Not Detected (NotDetected); Kpneumoniae grp Not Reported DETECTED (NotDetected); Lmonocyt Not Reported Not Detected (NotDetected); N meningitidis Not Reported Not Detected (NotDetected); NDM Resistant Gene Not Detected (NotDetected); OXA 48 Like Resistant Gene Not Detected (NotDetected); P aeruginosa Not Reported Not Detected (NotDetected); Proteus spp Not Reported Not Detected (NotDetected); Salmonella spp Not Reported Not Detected (NotDetected); Staph lugdunensis Not Reported Not Detected (NotDetected); Staph spp. Not Reported Not Detected (NotDetected); Staphaureus Not Reported Not Detected (NotDetected); Staphepi Not Reported Not Detected (NotDetected); Stenmaltophilia Not Reported Not Detected (NotDetected); Strep agal(GrpB) Not Reported Not Detected (NotDetected); Strep pneum Not Reported Not Detected (NotDetected); Strep pyog (GrpA) Not Reported Not Detected (NotDetected); Strep spp Not Reported Not Detected (NotDetected); VIM Resistant Gene Not Detected (NotDetected); mcr-1 Colistin Resistant Gene Not Detected (NotDetected)
[2024-02-29 14:48] LABS: Klebsiella pneumoniae group DETECTED (NotDetected)
== END 2024-02-28 18:22 | disposition home or self-care (01) | DRG 854 ==
LOC: ED 15:31 → OR 16:53 → SUATTDRO 17:00 → 2S 17:00 → UNDODISIN 02-26 15:42 → 2S 02-28 16:53